=== PATIENT | male | born 1960 | race Caucasian/White ===

== ENCOUNTER 2019-12-04 12:58 | Inpatient (IN) | payer BC, SELFPAY ==
[2019-12-04] VITALS (7 sets, daily range): BP systolic 140–158; BP diastolic 82–101; PULSE 65–103; RESP 9–24; TEMP 36.6–36.8; O2SAT 86–99; BMI 40.7
--- NOTE | 2019-12-04 13:14 | ECG_ITS ---
[facility] Test Date: 2019-12-04 Pat Name: Clayton Rodriguez Department: Room: Gender: Male [employer]: : [id number] Requested By: Aren Doan Order Number: [id number] Zackary MD: Silviano Vee M.D. Measurements Intervals Snyder Rate: 80 P: 67 ME: 142 QRS: 17 QRSD: 85 T: 68 QT: 353 QTc: 409 Interpretive Statements SINUS RHYTHM No previous ECG available for comparison Electronically Signed On 12-04-2019 16:54:48 CDT by Silviano Vee M.D. [email or web address]
--- NOTE | 2019-12-04 13:14 | XRR_ITS ---
PROCEDURE INFORMATION: Exam: XR Chest, 1 View Exam date and time: 12/04/2019 1:33 PM Age: 59 years old Clinical indication: Cough and shortness of breath; Patient HX: C/O short of breath, feels like a cold. Chest congestion, rhinorrhea; Additional info: Dyspnea/cough TECHNIQUE: Imaging protocol: XR of the chest Views: 1 view. COMPARISON: No relevant prior studies available. FINDINGS: Lungs: Unremarkable. No consolidation. Pleural space: Unremarkable. No pleural effusion. No pneumothorax. Heart/Mediastinum: Unremarkable. No cardiomegaly. Bones/joints: Unremarkable. XR/XR chest 1V portable [id number] IMPRESSION: No acute findings.
--- NOTE | 2019-12-04 13:42 | W.ED.SOB ---
HPI - SOB/Dyspnea General: Chief Complaint: Shortness of Breath/Dyspnea Stated Complaint: sob Time Seen by Provider: 12/04/19 13:29 History of Present Illness: HPI Narrative: 59-year-old male presents complaining of shortness of breath states he feels like picked up a cold has had chest congestion cough minimal production and rhinorrhea he is not had any and insomnia. He denies any fever no chest pain he is not been around anyone who is been tested or known to have COVID. He denies vomiting or diarrhea. He does still smoke a pack a day and has for 40 years he has nebulizer at home but is not been using it. He is not regularly on any inhaled medications. MD elicited complaint: shortness of breath and cough Pertinent past history: COPD Onset (ago): day(s) Context: recent illness Timing: constant Severity: moderate Exacerbating factors: exertion and coughing Relieving factors: nothing and rest Known history of: COPD Associated symptoms: Reports no associated symptoms; Deny abdominal pain, chest pain, fever(s), nausea, orthopnea or vomiting Treatment prior to arrival: none Review of Systems Const: Denies: fever(s), chills, body aches, change in appetite, fatigue or malaise ENMT: Denies: throat pain, ear or mastoid pain, nasal discharge or nasal congestion Card: Denies: chest pain, edema, dyspnea on exertion or orthopnea Resp: Denies: dyspnea, productive cough or non-productive cough GI: Denies: abdominal pain, nausea, vomiting, hematemesis, coffee ground emesis, diarrhea, constipation, bloating, hematochezia or melena : Denies: flank pain, dysuria, urinary frequency or urinary urgency Skin/Breast: Denies: rash or pruritus REPLACED BY [facility] PFSH: Medical History (Updated 12/06/19 @ 13:25 by Kamari Kong MD) Acute exacerbation of chronic obstructive airways disease Nephrolithiasis Type 2 diabetes mellitus Social History Smoking and tobacco status: current every day smoker cigarettes Packs smoked per day: 1 Years cigarettes smoked: 40 Physical Exam Const: COMMON NORMALS: no acute distress GENERAL APPEARANCE: cooperative and comfortable ORIENTATION/CONSCIOUSNESS: Yes awake, Yes oriented to person, Yes oriented to place and Yes oriented to time HENMT: COMMON NORMALS: normocephalic and atraumatic HEAD & SCALP: normocephalic and atraumatic Eye: COMMON NORMALS: Equal, round and reactive pupils present, EOMs intact bilaterally, conjunctivae normal and no scleral icterus CONJUNCTIVA: Yes conjunctivae normal PUPIL: Yes Equal, round and reactive pupils present Neck/C-Spine: COMMON NORMALS: full ROM, no lymphadenopathy, supple and no JVD Lymph: LYMPHATIC: no lymphadenopathy noted and no lymphedema noted Resp: AUSCULTATION: wheezes, diminished lung sounds and bronchial breath sounds Cardio: COMMON NORMALS: no JVD, regular rate, regular rhythm and No murmurs present (Cardio) RATE: regular rate RHYTHM: regular rhythm GI: COMMON NORMALS: Soft to palpation and No hepatosplenomegaly present AUSCULTATION: Yes normoactive bowel sounds PALPATION: Yes Soft to palpation, No Tenderness to palpation present (GI), No Guarding due to palpation present (GI) and Yes No hepatosplenomegaly present Extremity: COMMON NORMALS: normal to inspection, capillary refill normal, no clubbing, cyanosis or edema, no calf tenderness and no pedal edema Neuro: SENSORIUM/ORIENTATION: Yes oriented to person, Yes oriented to place and Yes oriented to time Skin: COMMON NORMALS: no rashes or lesions noted GENERAL SKIN EXAM: no rashes or lesions noted Course Vital Signs: Vital signs: Vital Signs Temperature 97.5 F L 12/07/19 07:19 Pulse Rate 76 12/07/19 07:19 Respiratory Rate 18 12/07/19 07:19 Blood Pressure 152/68 12/07/19 07:19 Pulse Oximetry 95 12/07/19 07:19 MDM - SOB/Dyspnea MDM Narrative: Medical decision making narrative: Patient has acute exacerbation COPD. Additionally we are concerned about potential COVID exposure. We will go ahead admitted here for aggressive pulmonary toilet he is considered percent on investigation at this time so will remain in isolation Lab Data: Labs: Lab Results 12/04/19 12/04/19 12/04/19 Range/Units 13:35 14:16 14:16 WBC Cancelled Corrected WBC Cancelled RBC Cancelled Hgb Cancelled Hct Cancelled MCV Cancelled MCH Cancelled MCHC Cancelled RDW Cancelled Plt Count Cancelled MPV Cancelled Gran % Cancelled Neut % (Auto) Cancelled Lymph % (Auto) Cancelled Gentry % (Auto) Cancelled Eos % (Auto) Cancelled Baso % (Auto) Cancelled Neut # (Auto) Cancelled Lymph # (Auto) Cancelled Gentry # (Auto) Cancelled Eos # (Auto) Cancelled Baso # (Auto) Cancelled Absolute Gran (aut o) Cancelled Nucleated RBC % (a uto) Cancelled Nucleated RBCs # Cancelled Fibrinogen (174-498) mg/dL D-Dimer (0-0.59) ug/mIFE U Specimen Type Arterial Sample Site Radial, right ABG pH 7.35 (7.35-7.45) ABG pCO2 54.4 H (35-45) mmHg ABG pO2 95.3 (80.0-100.0) mmH g ABG HCO3 29.9 H (22-26) mmol/L ABG O2 Saturation 96.9 ABG Base Excess 2.5 H (-2.0-2.0) mmol/ L Trung Test Pos A-a O2 Gradient Not Reportable Hematocrit 56.6 H (42-52) % Hgb O2 Saturation 93.7 L (95-100) % Carboxyhemoglobin 2.8 (0.4-20.1) %THgb Methemoglobin 0.6 (0.4-1.5) % Total Hemoglobin 18.5 H (14-18) g/dL Sodium 142.0 138 (131-143) mmol/L Potassium 4.5 4.9 (3.5-5.0) mmol/L Glucose 118.0 H 120 H (70-115) mg/dL Ionized Calcium 1.2 (1.1-1.4) mmol/L O2 Delivery Device Nc O2 Liters/Min 3.0 % FiO2 32.0 % Charge Entry Clerk ID Jlg Chloride 102 (98-107) mmol/L Carbon Dioxide 28 (22-29) mmol/L Anion Gap 12.9 (5-19) BUN 15 (8-23) mg/dL Creatinine 0.9 (0.7-1.2) mg/dL GFR Calculation 85.8 L (90-130) mL/min POC Glucose (70-110) mg/dL Estimat Average Gl ucose Hemoglobin A1c (4.0-6.0) % Calculated Osmolal ity 283 L (285-295) mOsm/k g Lactic Acid (0.5-2.2) mmol/L Calcium 9.4 (8.5-10.5) mg/dL Magnesium (1.7-2.3) mg/dL Iron (59-158) ug/dL TIBC mcg/dl % Saturation (20-50) % Unsat Iron Binding (112-347) ug/dL Ferritin (30-400) ng/mL Total Bilirubin 0.4 (0.15-1.2) mg/dL AST 26 (0-40) U/L ALT 26 (0-41) U/L Alkaline Phosphata se 60 (40-130) IU/L Lactate Dehydrogen ase (135-225) U/L Creatine Kinase (39-308) U/L Troponin T Baselin e (0-15) ng/L Troponin T 120 Min [place] (0-15) ng/L Delta Troponin T (0-10) ABS# Troponin T Hi Sens 6Hr (0-15) ng/L Troponin T Hi Sens 6Hr Delta (0-12) ng/L C-Reactive Protein (0.0-4.9) mg/L NT-Pro-B Natriuret Pep (0-125) pg/mL Total Protein 7.1 (6.6-8.7) g/dL Albumin 4.6 (3.5-5.2) g/dL Globulin 2.5 (1.3-4.6) g/dL Triglycerides (0-150) mg/dL Cholesterol (0-200) mg/dL LDL Cholesterol, C alc (50-129) mg/dL Total VLDL Cholest stef (0-30) mg/dL HDL Cholesterol (60-100) mg/dL Cholesterol/HDL Ra en (1.0-5.00) mg/dL Procalcitonin (0-0.5) ng/mL TSH (0.27-4.20) uIU/ mL Nasal/Oral COVID-1 9 PCR SARS-CoV-2 RNA (RT -PCR) (NOT DETECTED) SARS-CoV-2 Ag (Rap id) (Negative) 12/04/19 12/04/19 12/04/19 Range/Units 14:16 14:16 14:16 WBC Corrected WBC RBC Hgb Hct MCV MCH MCHC RDW Plt Count MPV Gran % Neut % (Auto) Lymph % (Auto) Gentry % (Auto) Eos % (Auto) Baso % (Auto) Neut # (Auto) Lymph # (Auto) Gentry # (Auto) Eos # (Auto) Baso # (Auto) Absolute Gran (aut o) Nucleated RBC % (a uto) Nucleated RBCs # Fibrinogen 501 H (174-498) mg/dL D-Dimer 0.39 (0-0.59) ug/mIFE U Specimen Type Sample Site ABG pH (7.35-7.45) ABG pCO2 (35-45) mmHg ABG pO2 (80.0-100.0) mmH g ABG HCO3 (22-26) mmol/L ABG O2 Saturation ABG Base Excess (-2.0-2.0) mmol/ L Trung Test A-a O2 Gradient Hematocrit (42-52) % Hgb O2 Saturation (95-100) % Carboxyhemoglobin (0.4-20.1) %THgb Methemoglobin (0.4-1.5) % Total Hemoglobin (14-18) g/dL Sodium (131-143) mmol/L Potassium (3.5-5.0) mmol/L Glucose (70-115) mg/dL Ionized Calcium (1.1-1.4) mmol/L O2 Delivery Device O2 Liters/Min % FiO2 % Charge Entry Clerk ID Chloride (98-107) mmol/L Carbon Dioxide (22-29) mmol/L Anion Gap (5-19) BUN (8-23) mg/dL Creatinine (0.7-1.2) mg/dL GFR Calculation (90-130) mL/min POC Glucose (70-110) mg/dL Estimat Average Gl ucose Hemoglobin A1c (4.0-6.0) % Calculated Osmolal ity (285-295) mOsm/k g Lactic Acid 1.1 (0.5-2.2) mmol/L Calcium (8.5-10.5) mg/dL Magnesium (1.7-2.3) mg/dL Iron (59-158) ug/dL TIBC mcg/dl % Saturation (20-50) % Unsat Iron Binding (112-347) ug/dL Ferritin (30-400) ng/mL Total Bilirubin (0.15-1.2) mg/dL AST (0-40) U/L ALT (0-41) U/L Alkaline Phosphata se (40-130) IU/L Lactate Dehydrogen ase (135-225) U/L Creatine Kinase (39-308) U/L Troponin T Baselin e 13 (0-15) ng/L Troponin T 120 Min [place] (0-15) ng/L Delta Troponin T (0-10) ABS# Troponin T Hi Sens 6Hr (0-15) ng/L Troponin T Hi Sens 6Hr Delta (0-12) ng/L C-Reactive Protein (0.0-4.9) mg/L NT-Pro-B Natriuret Pep (0-125) pg/mL Total Protein (6.6-8.7) g/dL Albumin (3.5-5.2) g/dL Globulin (1.3-4.6) g/dL Triglycerides (0-150) mg/dL Cholesterol (0-200) mg/dL LDL Cholesterol, C alc (50-129) mg/dL Total VLDL Cholest stef (0-30) mg/dL HDL Cholesterol (60-100) mg/dL Cholesterol/HDL Ra en (1.0-5.00) mg/dL Procalcitonin (0-0.5) ng/mL TSH (0.27-4.20) uIU/ mL Nasal/Oral COVID-1 9 PCR SARS-CoV-2 RNA (RT -PCR) (NOT DETECTED) SARS-CoV-2 Ag (Rap id) (Negative) 12/04/19 12/04/19 12/04/19 Range/Units 14:16 14:30 15:49 WBC 7.1 Corrected WBC RBC 5.61 H Hgb 17.6 H Hct 54.1 H MCV 96.4 H MCH 31.4 MCHC 32.5 RDW 12.9 Plt Count 181 MPV 10.7 H Gran % Neut % (Auto) 59.5 Lymph % (Auto) 23.6 Gentry % (Auto) 14.5 Eos % (Auto) 1.1 Baso % (Auto) 0.7 Neut # (Auto) 4.21 Lymph # (Auto) 1.7 Gentry # (Auto) 1.0 H Eos # (Auto) 0.1 Baso # (Auto) 0.1 Absolute Gran (aut o) Nucleated RBC % (a uto) 0 Nucleated RBCs # 0.0 Fibrinogen (174-498) mg/dL D-Dimer (0-0.59) ug/mIFE U Specimen Type Sample Site ABG pH (7.35-7.45) ABG pCO2 (35-45) mmHg ABG pO2 (80.0-100.0) mmH g ABG HCO3 (22-26) mmol/L ABG O2 Saturation ABG Base Excess (-2.0-2.0) mmol/ L Trung Test A-a O2 Gradient Hematocrit (42-52) % Hgb O2 Saturation (95-100) % Carboxyhemoglobin (0.4-20.1) %THgb Methemoglobin (0.4-1.5) % Total Hemoglobin (14-18) g/dL Sodium (131-143) mmol/L Potassium (3.5-5.0) mmol/L Glucose (70-115) mg/dL Ionized Calcium (1.1-1.4) mmol/L O2 Delivery Device O2 Liters/Min % FiO2 % Charge Entry Clerk ID Chloride (98-107) mmol/L Carbon Dioxide (22-29) mmol/L Anion Gap (5-19) BUN (8-23) mg/dL Creatinine (0.7-1.2) mg/dL GFR Calculation (90-130) mL/min POC Glucose (70-110) mg/dL Estimat Average Gl ucose Hemoglobin A1c (4.0-6.0) % Calculated Osmolal ity (285-295) mOsm/k g Lactic Acid (0.5-2.2) mmol/L Calcium (8.5-10.5) mg/dL Magnesium (1.7-2.3) mg/dL Iron (59-158) ug/dL TIBC mcg/dl % Saturation (20-50) % Unsat Iron Binding (112-347) ug/dL Ferritin 489 H (30-400) ng/mL Total Bilirubin (0.15-1.2) mg/dL AST (0-40) U/L ALT (0-41) U/L Alkaline Phosphata se (40-130) IU/L Lactate Dehydrogen ase 232 H (135-225) U/L Creatine Kinase (39-308) U/L Troponin T Baselin e (0-15) ng/L Troponin T 120 Min [place] (0-15) ng/L Delta Troponin T (0-10) ABS# Troponin T Hi Sens 6Hr (0-15) ng/L Troponin T Hi Sens 6Hr Delta (0-12) ng/L C-Reactive Protein 9.4 H (0.0-4.9) mg/L NT-Pro-B Natriuret Pep (0-125) pg/mL Total Protein (6.6-8.7) g/dL Albumin (3.5-5.2) g/dL Globulin (1.3-4.6) g/dL Triglycerides (0-150) mg/dL Cholesterol (0-200) mg/dL LDL Cholesterol, C alc (50-129) mg/dL Total VLDL Cholest stef (0-30) mg/dL HDL Cholesterol (60-100) mg/dL Cholesterol/HDL Ra en (1.0-5.00) mg/dL Procalcitonin (0-0.5) ng/mL TSH (0.27-4.20) uIU/ mL Nasal/Oral COVID-1 9 PCR SARS-CoV-2 RNA (RT -PCR) Not detected (NOT DETECTED) SARS-CoV-2 Ag (Rap id) (Negative) 12/04/19 12/04/19 12/04/19 Range/Units 16:26 16:26 16:26 WBC Corrected WBC RBC Hgb Hct MCV MCH MCHC RDW Plt Count MPV Gran % Neut % (Auto) Lymph % (Auto) Gentry % (Auto) Eos % (Auto) Baso % (Auto) Neut # (Auto) Lymph # (Auto) Gentry # (Auto) Eos # (Auto) Baso # (Auto) Absolute Gran (aut o) Nucleated RBC % (a uto) Nucleated RBCs # Fibrinogen (174-498) mg/dL D-Dimer (0-0.59) ug/mIFE U Specimen Type Sample Site ABG pH (7.35-7.45) ABG pCO2 (35-45) mmHg ABG pO2 (80.0-100.0) mmH g ABG HCO3 (22-26) mmol/L ABG O2 Saturation ABG Base Excess (-2.0-2.0) mmol/ L Trung Test A-a O2 Gradient Hematocrit (42-52) % Hgb O2 Saturation (95-100) % Carboxyhemoglobin (0.4-20.1) %THgb Methemoglobin (0.4-1.5) % Total Hemoglobin (14-18) g/dL Sodium (131-143) mmol/L Potassium (3.5-5.0) mmol/L Glucose (70-115) mg/dL Ionized Calcium (1.1-1.4) mmol/L O2 Delivery Device O2 Liters/Min % FiO2 % Charge Entry Clerk ID Chloride (98-107) mmol/L Carbon Dioxide (22-29) mmol/L Anion Gap (5-19) BUN (8-23) mg/dL Creatinine (0.7-1.2) mg/dL GFR Calculation (90-130) mL/min POC Glucose (70-110) mg/dL Estimat Average Gl ucose Hemoglobin A1c (4.0-6.0) % Calculated Osmolal ity (285-295) mOsm/k g Lactic Acid (0.5-2.2) mmol/L Calcium (8.5-10.5) mg/dL Magnesium (1.7-2.3) mg/dL Iron 50 L (59-158) ug/dL TIBC 283 mcg/dl % Saturation 17.6 L (20-50) % Unsat Iron Binding 233 (112-347) ug/dL Ferritin (30-400) ng/mL Total Bilirubin (0.15-1.2) mg/dL AST (0-40) U/L ALT (0-41) U/L Alkaline Phosphata se (40-130) IU/L Lactate Dehydrogen ase (135-225) U/L Creatine Kinase 238 (39-308) U/L Troponin T Baselin e (0-15) ng/L Troponin T 120 Min [place] 12.03 (0-15) ng/L Delta Troponin T -0.97 L (0-10) ABS# Troponin T Hi Sens 6Hr (0-15) ng/L Troponin T Hi Sens 6Hr Delta (0-12) ng/L C-Reactive Protein (0.0-4.9) mg/L NT-Pro-B Natriuret Pep 72 (0-125) pg/mL Total Protein (6.6-8.7) g/dL Albumin (3.5-5.2) g/dL Globulin (1.3-4.6) g/dL Triglycerides (0-150) mg/dL Cholesterol (0-200) mg/dL LDL Cholesterol, C alc (50-129) mg/dL Total VLDL Cholest stef (0-30) mg/dL HDL Cholesterol (60-100) mg/dL Cholesterol/HDL Ra en (1.0-5.00) mg/dL Procalcitonin 0.08 (0-0.5) ng/mL TSH 1.49 (0.27-4.20) uIU/ mL Nasal/Oral COVID-1 9 PCR SARS-CoV-2 RNA (RT -PCR) (NOT DETECTED) SARS-CoV-2 Ag (Rap id) (Negative) 12/04/19 12/04/19 12/04/19 Range/Units 16:35 18:25 19:55 WBC Corrected WBC RBC Hgb Hct MCV MCH MCHC RDW Plt Count MPV Gran % Neut % (Auto) Lymph % (Auto) Gentry % (Auto) Eos % (Auto) Baso % (Auto) Neut # (Auto) Lymph # (Auto) Gentry # (Auto) Eos # (Auto) Baso # (Auto) Absolute Gran (aut o) Nucleated RBC % (a uto) Nucleated RBCs # Fibrinogen (174-498) mg/dL D-Dimer (0-0.59) ug/mIFE U Specimen Type Sample Site ABG pH (7.35-7.45) ABG pCO2 (35-45) mmHg ABG pO2 (80.0-100.0) mmH g ABG HCO3 (22-26) mmol/L ABG O2 Saturation ABG Base Excess (-2.0-2.0) mmol/ L Trung Test A-a O2 Gradient Hematocrit (42-52) % Hgb O2 Saturation (95-100) % Carboxyhemoglobin (0.4-20.1) %THgb Methemoglobin (0.4-1.5) % Total Hemoglobin (14-18) g/dL Sodium (131-143) mmol/L Potassium (3.5-5.0) mmol/L Glucose (70-115) mg/dL Ionized Calcium (1.1-1.4) mmol/L O2 Delivery Device O2 Liters/Min % FiO2 % Charge Entry Clerk ID Chloride (98-107) mmol/L Carbon Dioxide (22-29) mmol/L Anion Gap (5-19) BUN (8-23) mg/dL Creatinine (0.7-1.2) mg/dL GFR Calculation (90-130) mL/min POC Glucose 220 (70-110) mg/dL Estimat Average Gl ucose Hemoglobin A1c (4.0-6.0) % Calculated Osmolal ity (285-295) mOsm/k g Lactic Acid (0.5-2.2) mmol/L Calcium (8.5-10.5) mg/dL Magnesium (1.7-2.3) mg/dL Iron (59-158) ug/dL TIBC mcg/dl % Saturation (20-50) % Unsat Iron Binding (112-347) ug/dL Ferritin (30-400) ng/mL Total Bilirubin (0.15-1.2) mg/dL AST (0-40) U/L ALT (0-41) U/L Alkaline Phosphata se (40-130) IU/L Lactate Dehydrogen ase (135-225) U/L Creatine Kinase (39-308) U/L Troponin T Baselin e (0-15) ng/L Troponin T 120 Min [place] (0-15) ng/L Delta Troponin T (0-10) ABS# Troponin T Hi Sens 6Hr (0-15) ng/L Troponin T Hi Sens 6Hr Delta (0-12) ng/L C-Reactive Protein (0.0-4.9) mg/L NT-Pro-B Natriuret Pep (0-125) pg/mL Total Protein (6.6-8.7) g/dL Albumin (3.5-5.2) g/dL Globulin (1.3-4.6) g/dL Triglycerides (0-150) mg/dL Cholesterol (0-200) mg/dL LDL Cholesterol, C alc (50-129) mg/dL Total VLDL Cholest stef (0-30) mg/dL HDL Cholesterol (60-100) mg/dL Cholesterol/HDL Ra en (1.0-5.00) mg/dL Procalcitonin (0-0.5) ng/mL TSH (0.27-4.20) uIU/ mL Nasal/Oral COVID-1 9 PCR See comments SARS-CoV-2 RNA (RT -PCR) (NOT DETECTED) SARS-CoV-2 Ag (Rap id) Negative (Negative) 12/04/19 12/05/19 12/05/19 Range/Units 20:03 04:22 04:22 WBC Corrected WBC RBC Hgb Hct MCV MCH MCHC RDW Plt Count MPV Gran % Neut % (Auto) Lymph % (Auto) Gentry % (Auto) Eos % (Auto) Baso % (Auto) Neut # (Auto) Lymph # (Auto) Gentry # (Auto) Eos # (Auto) Baso # (Auto) Absolute Gran (aut o) Nucleated RBC % (a uto) Nucleated RBCs # Fibrinogen (174-498) mg/dL D-Dimer (0-0.59) ug/mIFE U Specimen Type Sample Site ABG pH (7.35-7.45) ABG pCO2 (35-45) mmHg ABG pO2 (80.0-100.0) mmH g ABG HCO3 (22-26) mmol/L ABG O2 Saturation ABG Base Excess (-2.0-2.0) mmol/ L Trung Test A-a O2 Gradient Hematocrit (42-52) % Hgb O2 Saturation (95-100) % Carboxyhemoglobin (0.4-20.1) %THgb Methemoglobin (0.4-1.5) % Total Hemoglobin (14-18) g/dL Sodium (131-143) mmol/L Potassium (3.5-5.0) mmol/L Glucose (70-115) mg/dL Ionized Calcium (1.1-1.4) mmol/L O2 Delivery Device O2 Liters/Min % FiO2 % Charge Entry Clerk ID Chloride (98-107) mmol/L Carbon Dioxide (22-29) mmol/L Anion Gap (5-19) BUN (8-23) mg/dL Creatinine (0.7-1.2) mg/dL GFR Calculation (90-130) mL/min POC Glucose (70-110) mg/dL Estimat Average Gl ucose 206 Hemoglobin A1c 8.8 H (4.0-6.0) % Calculated Osmolal ity (285-295) mOsm/k g Lactic Acid (0.5-2.2) mmol/L Calcium (8.5-10.5) mg/dL Magnesium 1.9 (1.7-2.3) mg/dL Iron (59-158) ug/dL TIBC mcg/dl % Saturation (20-50) % Unsat Iron Binding (112-347) ug/dL Ferritin (30-400) ng/mL Total Bilirubin (0.15-1.2) mg/dL AST (0-40) U/L ALT (0-41) U/L Alkaline Phosphata se (40-130) IU/L Lactate Dehydrogen ase (135-225) U/L Creatine Kinase (39-308) U/L Troponin T Baselin e (0-15) ng/L Troponin T 120 Min [place] (0-15) ng/L Delta Troponin T (0-10) ABS# Troponin T Hi Sens 6Hr 11.20 (0-15) ng/L Troponin T Hi Sens 6Hr Delta -1.80 L (0-12) ng/L C-Reactive Protein (0.0-4.9) mg/L NT-Pro-B Natriuret Pep (0-125) pg/mL Total Protein (6.6-8.7) g/dL Albumin (3.5-5.2) g/dL Globulin (1.3-4.6) g/dL Triglycerides (0-150) mg/dL Cholesterol (0-200) mg/dL LDL Cholesterol, C alc (50-129) mg/dL Total VLDL Cholest stef (0-30) mg/dL HDL Cholesterol (60-100) mg/dL Cholesterol/HDL Ra en (1.0-5.00) mg/dL Procalcitonin (0-0.5) ng/mL TSH (0.27-4.20) uIU/ mL Nasal/Oral COVID-1 9 PCR SARS-CoV-2 RNA (RT -PCR) (NOT DETECTED) SARS-CoV-2 Ag (Rap id) (Negative) 12/05/19 12/05/19 12/05/19 Range/Units 04:22 04:22 04:22 WBC 6.3 Corrected WBC RBC 5.78 H Hgb 17.6 H Hct 55.3 H MCV 95.7 H MCH 30.4 MCHC 31.8 RDW 12.9 Plt Count 213 MPV 11.3 H Gran % Neut % (Auto) 83.8 Lymph % (Auto) 14.2 Gentry % (Auto) 1.3 Eos % (Auto) 0.0 Baso % (Auto) 0.2 Neut # (Auto) 5.25 Lymph # (Auto) 0.9 [place]entry # (Auto) 0.1 L Eos # (Auto) 0.0 Baso # (Auto) 0.0 Absolute Gran (aut o) Nucleated RBC % (a uto) 0 Nucleated RBCs # 0.0 Fibrinogen (174-498) mg/dL D-Dimer (0-0.59) ug/mIFE U Specimen Type Sample Site ABG pH (7.35-7.45) ABG pCO2 (35-45) mmHg ABG pO2 (80.0-100.0) mmH g ABG HCO3 (22-26) mmol/L ABG O2 Saturation ABG Base Excess (-2.0-2.0) mmol/ L Trung Test A-a O2 Gradient Hematocrit (42-52) % Hgb O2 Saturation (95-100) % Carboxyhemoglobin (0.4-20.1) %THgb Methemoglobin (0.4-1.5) % Total Hemoglobin (14-18) g/dL Sodium 136 (131-143) mmol/L Potassium 5.2 H (3.5-5.0) mmol/L Glucose 207 H (70-115) mg/dL Ionized Calcium (1.1-1.4) mmol/L O2 Delivery Device O2 Liters/Min % FiO2 % Charge Entry Clerk ID Chloride 100 (98-107) mmol/L Carbon Dioxide 28 (22-29) mmol/L Anion Gap 13.2 (5-19) BUN 1 L (8-23) mg/dL Creatinine 0.9 (0.7-1.2) mg/dL GFR Calculation 85.8 L (90-130) mL/min POC Glucose (70-110) mg/dL Estimat Average Gl ucose Hemoglobin A1c (4.0-6.0) % Calculated Osmolal ity 284 L (285-295) mOsm/k g Lactic Acid (0.5-2.2) mmol/L Calcium 8.9 (8.5-10.5) mg/dL Magnesium (1.7-2.3) mg/dL Iron (59-158) ug/dL TIBC mcg/dl % Saturation (20-50) % Unsat Iron Binding (112-347) ug/dL Ferritin 501 H (30-400) ng/mL Total Bilirubin 0.3 (0.15-1.2) mg/dL AST 18 (0-40) U/L ALT 24 (0-41) U/L Alkaline Phosphata se 55 (40-130) IU/L Lactate Dehydrogen ase 185 (135-225) U/L Creatine Kinase 208 (39-308) U/L Troponin T Baselin e (0-15) ng/L Troponin T 120 Min [place] (0-15) ng/L Delta Troponin T (0-10) ABS# Troponin T Hi Sens 6Hr (0-15) ng/L Troponin T Hi Sens 6Hr Delta (0-12) ng/L C-Reactive Protein 7.2 H (0.0-4.9) mg/L NT-Pro-B Natriuret Pep (0-125) pg/mL Total Protein 7.2 (6.6-8.7) g/dL Albumin 4.1 (3.5-5.2) g/dL Globulin 3.1 (1.3-4.6) g/dL Triglycerides 106 (0-150) mg/dL Cholesterol 169 (0-200) mg/dL LDL Cholesterol, C alc 116 (50-129) mg/dL Total VLDL Cholest stef 21 (0-30) mg/dL HDL Cholesterol 32 L (60-100) mg/dL Cholesterol/HDL Ra en 5.28 H (1.0-5.00) mg/dL Procalcitonin (0-0.5) ng/mL TSH (0.27-4.20) uIU/ mL Nasal/Oral COVID-1 9 PCR SARS-CoV-2 RNA (RT -PCR) (NOT DETECTED) SARS-CoV-2 Ag (Rap id) (Negative) 12/05/19 12/05/19 12/05/19 Range/Units 04:22 06:24 10:29 WBC Corrected WBC RBC Hgb Hct MCV MCH MCHC RDW Plt Count MPV Gran % Neut % (Auto) Lymph % (Auto) [place] % (Auto) Eos % (Auto) Baso % (Auto) Neut # (Auto) Lymph # (Auto) [place] # (Auto) Eos # (Auto) Baso # (Auto) Absolute Gran (aut o) Nucleated RBC % (a uto) Nucleated RBCs # Fibrinogen 507 H (174-498) mg/dL D-Dimer 0.36 (0-0.59) ug/mIFE U Specimen Type Sample Site ABG pH (7.35-7.45) ABG pCO2 (35-45) mmHg ABG pO2 (80.0-100.0) mmH g ABG HCO3 (22-26) mmol/L ABG O2 Saturation ABG Base Excess (-2.0-2.0) mmol/ L Trung Test A-a O2 Gradient Hematocrit (42-52) % Hgb O2 Saturation (95-100) % Carboxyhemoglobin (0.4-20.1) %THgb Methemoglobin (0.4-1.5) % Total Hemoglobin (14-18) g/dL Sodium (131-143) mmol/L Potassium (3.5-5.0) mmol/L Glucose (70-115) mg/dL Ionized Calcium (1.1-1.4) mmol/L O2 Delivery Device O2 Liters/Min % FiO2 % Charge Entry Clerk ID Chloride (98-107) mmol/L Carbon Dioxide (22-29) mmol/L Anion Gap (5-19) BUN (8-23) mg/dL Creatinine (0.7-1.2) mg/dL GFR Calculation (90-130) mL/min POC Glucose 171 228 (70-110) mg/dL Estimat Average Gl ucose Hemoglobin A1c (4.0-6.0) % Calculated Osmolal ity (285-295) mOsm/k g Lactic Acid (0.5-2.2) mmol/L Calcium (8.5-10.5) mg/dL Magnesium (1.7-2.3) mg/dL Iron (59-158) ug/dL TIBC mcg/dl % Saturation (20-50) % Unsat Iron Binding (112-347) ug/dL Ferritin (30-400) ng/mL Total Bilirubin (0.15-1.2) mg/dL AST (0-40) U/L ALT (0-41) U/L Alkaline Phosphata se (40-130) IU/L Lactate Dehydrogen ase (135-225) U/L Creatine Kinase (39-308) U/L Troponin T Baselin e (0-15) ng/L Troponin T 120 Min [place] (0-15) ng/L Delta Troponin T (0-10) ABS# Troponin T Hi Sens 6Hr (0-15) ng/L Troponin T Hi Sens 6Hr Delta (0-12) ng/L C-Reactive Protein (0.0-4.9) mg/L NT-Pro-B Natriuret Pep (0-125) pg/mL Total Protein (6.6-8.7) g/dL Albumin (3.5-5.2) g/dL Globulin (1.3-4.6) g/dL Triglycerides (0-150) mg/dL Cholesterol (0-200) mg/dL LDL Cholesterol, C alc (50-129) mg/dL Total VLDL Cholest stef (0-30) mg/dL HDL Cholesterol (60-100) mg/dL Cholesterol/HDL Ra en (1.0-5.00) mg/dL Procalcitonin (0-0.5) ng/mL TSH (0.27-4.20) uIU/ mL Nasal/Oral COVID-1 9 PCR SARS-CoV-2 RNA (RT -PCR) (NOT DETECTED) SARS-CoV-2 Ag (Rap id) (Negative) 12/05/19 Range/Units 16:30 WBC Corrected WBC RBC Hgb Hct MCV MCH MCHC RDW Plt Count MPV Gran % Neut % (Auto) Lymph % (Auto) [place] % (Auto) Eos % (Auto) Baso % (Auto) Neut # (Auto) Lymph # (Auto) [place] # (Auto) Eos # (Auto) Baso # (Auto) Absolute Gran (aut o) Nucleated RBC % (a uto) Nucleated RBCs # Fibrinogen (174-498) mg/dL D-Dimer (0-0.59) ug/mIFE U Specimen Type Sample Site ABG pH (7.35-7.45) ABG pCO2 (35-45) mmHg ABG pO2 (80.0-100.0) mmH g ABG HCO3 (22-26) mmol/L ABG O2 Saturation ABG Base Excess (-2.0-2.0) mmol/ L Trung Test A-a O2 Gradient Hematocrit (42-52) % Hgb O2 Saturation (95-100) % Carboxyhemoglobin (0.4-20.1) %THgb Methemoglobin (0.4-1.5) % Total Hemoglobin (14-18) g/dL Sodium (131-143) mmol/L Potassium (3.5-5.0) mmol/L Glucose (70-115) mg/dL Ionized Calcium (1.1-1.4) mmol/L O2 Delivery Device O2 Liters/Min % FiO2 % Charge Entry Clerk ID Chloride (98-107) mmol/L Carbon Dioxide (22-29) mmol/L Anion Gap (5-19) BUN (8-23) mg/dL Creatinine (0.7-1.2) mg/dL GFR Calculation (90-130) mL/min POC Glucose 251 (70-110) mg/dL Estimat Average Gl ucose Hemoglobin A1c (4.0-6.0) % Calculated Osmolal ity (285-295) mOsm/k g Lactic Acid (0.5-2.2) mmol/L Calcium (8.5-10.5) mg/dL Magnesium (1.7-2.3) mg/dL Iron (59-158) ug/dL TIBC mcg/dl % Saturation (20-50) % Unsat Iron Binding (112-347) ug/dL Ferritin (30-400) ng/mL Total Bilirubin (0.15-1.2) mg/dL AST (0-40) U/L ALT (0-41) U/L Alkaline Phosphata se (40-130) IU/L Lactate Dehydrogen ase (135-225) U/L Creatine Kinase (39-308) U/L Troponin T Baselin e (0-15) ng/L Troponin T 120 Min [place] (0-15) ng/L Delta Troponin T (0-10) ABS# Troponin T Hi Sens 6Hr (0-15) ng/L Troponin T Hi Sens 6Hr Delta (0-12) ng/L C-Reactive Protein (0.0-4.9) mg/L NT-Pro-B Natriuret Pep (0-125) pg/mL Total Protein (6.6-8.7) g/dL Albumin (3.5-5.2) g/dL Globulin (1.3-4.6) g/dL Triglycerides (0-150) mg/dL Cholesterol (0-200) mg/dL LDL Cholesterol, C alc (50-129) mg/dL Total VLDL Cholest stef (0-30) mg/dL HDL Cholesterol (60-100) mg/dL Cholesterol/HDL Ra en (1.0-5.00) mg/dL Procalcitonin (0-0.5) ng/mL TSH (0.27-4.20) uIU/ mL Nasal/Oral COVID-1 9 PCR SARS-CoV-2 RNA (RT -PCR) (NOT DETECTED) SARS-CoV-2 Ag (Rap id) (Negative) Discharge Plan Discharge Patient Disposition: Home Clinical Impression: Acute exacerbation of chronic obstructive airways disease Condition: Stable Discharge Diet: Usual diet Discharge Activity: Increase activity as tolerated Discharge Date/Time: 12/04/19 19:24 Coding Level of Care Code ED Press Operator [employer] for Srikanth Fwd Exam Comprehensive
[2019-12-04 13:52] LABS: ABG PCO2 54.4 mmHg (35-45); ABG PH Result 7.35 (7.35-7.45); PO2 ABG 95.3 mmHg (80.0-100.0)
[2019-12-04 13:53] LABS: Base Excess ABG 2.5 mmol/L (-2.0-2.0); HCO3 ABG 29.9 mmol/L (22-26); Oxygen Saturation ABG 96.9; Potassium Level - ABG 4.5 mmol/L (3.5-5.0)
[2019-12-04 13:54] LABS: Arterial Blood Gas Hematocrit 56.6 % (42-52); Total Hemoglobin 18.5 g/dL (14-18)
[2019-12-04 13:55] LABS: Carboxyhemoglobin 2.8 %THgb (0.4-20.1); HGB O2 Sat 93.7 % (95-100); Methemoglobin 0.6 % (0.4-1.5)
[2019-12-04 14:46] LABS: Alanine Aminotransferase 26 U/L (0-41); Albumin Level 4.6 g/dL (3.5-5.2); Alkaline Phosphatase 60 IU/L (40-130); Blood Urea Nitrogen 15 mg/dL (8-23); Calcium 9.4 mg/dL (8.5-10.5); Carbon Dioxide 28 mmol/L (22-29); Chloride 102 mmol/L (98-107); Globulin 2.5 g/dL (1.3-4.6); Glomerular Filtration Rate 85.8 mL/min (90-130); Glucose 120 mg/dL (65-115); Osmolality Calculated 283 mOsm/kg (285-295); Sodium 138 mmol/L (136-145); Total Bilirubin 0.4 mg/dL (0.15-1.2); Total Protein 7.1 g/dL (6.6-8.7)
[2019-12-04 14:49] LABS: Troponin(5th) Baseline 13 ng/L (0-15)
[2019-12-04 14:55] LABS: Anion Gap 12.9 (5-19); Aspartate Amino Transferase 26 U/L (0-40); Potassium 4.9 mmol/L (3.5-5.1)
--- NOTE | 2019-12-04 15:14 | ECG_ITS ---
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 Measurements Intervals [place] Rate: 76 P: -12 NV: 143 QRS: 44 QRSD: 95 T: -14 QT: 366 QTc: 413 Interpretive Statements SINUS RHYTHM WITH OCCASIONAL SUPRAVENTRICULAR PREMATURE COMPLEXES Compared to ECG 12/04/2019 13:39:51 No significant changes Electronically Signed On 12-04-2019 17:44:57 CDT by Silviano Vee M.D. [id number]
[2019-12-04 15:54] LABS: Basophils # 0.1 10^3/uL (0.0-0.1); Basophils % 0.7 %; Eosinophils # 0.1 10^3/uL (0.0-0.8); Eosinophils % 1.1 %; Hematocrit 54.1 % (42.0-52.0); Hemoglobin 17.6 g/dL (11.7-16.6); Lymphocytes # 1.7 10^3/uL (0.8-4.8); Lymphocytes % 23.6 %; Mean Corpuscular HGB Conc 32.5 g/dL (30.0-36.0); Mean Corpuscular Hemoglobin 31.4 pg (28.0-34.0); Mean Corpuscular Volume 96.4 fL (80-94); Mean Platelet Volume 10.7 fL (7.4-10.4); Monocytes % 14.5 %; Neutrophils # 4.21 10^3/uL (1.8-7.7); Neutrophils % 59.5 %; Nucleated Red Blood Cells % 0 %; Platelet Count 181 10^3/cmm (130-400); Red Blood Count 5.61 10^6/uL (4.1-5.3); Red Cell Distribution Width 12.9 % (12.1-15.1); White Blood Count 7.1 10^3/uL (4.0-10.0)
[2019-12-04] MEDS: dexamethasone 4 mg/mL INJ 6 MG IVP (16:12)
[2019-12-04 16:26] LABS: Lactic Sepsis W/Reflex 1.1 mmol/L (0.5-2.2)
[2019-12-04 16:29] LABS: C Reactive Protein 9.4 mg/L (0.0-4.9); Ferritin 489 ng/mL (30-400)
[2019-12-04 16:56] LABS: Blood Gas Allen Test Pos; Blood Gas Sample Site Radial, right; Blood Gas Sample Type Arterial; Ionized Calcium Level - ABG 1.2 mmol/L (1.1-1.4)
[2019-12-04 16:58] LABS: SARS Covid-2 Antigen Negative (Negative)
[2019-12-04 16:58] LABS: Troponin 5 2HR 12.03 ng/L (0-15)
[2019-12-04] MEDS: albuterol 8 gm MDI 2 PUFF INHALATION (17:03)
[2019-12-04 17:04] LABS: Troponin 5 2HR Delta -0.97 ABS# (0-10)
[2019-12-04 17:15] LABS: Lactate Dehydrogenase 232 U/L (135-225)
[2019-12-04 17:56] LABS: Creatine Phosphokinase 238 U/L (39-308); Thyroid Stimulating Hormone 1.49 uIU/mL (0.27-4.20)
[2019-12-04 17:57] LABS: NT Pro B Type Natriuretic Pept 72 pg/mL (0-125); Procalcitonin 0.08 ng/mL (0-0.5)
[2019-12-04 18:14] LABS: Iron 50 ug/dL (59-158); Percent Saturation 17.6 % (20-50); Total Iron Binding Capacity 283 mcg/dl; Unsaturated Iron Binding 233 ug/dL (112-347)
--- NOTE | 2019-12-04 18:21 | P.HP_ITS ---
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 Usually is able to walk around without having any difficulty in breathing but for last 3 days he is getting out of breath even walking small distances. He is complaining of cough with whitish colored expectoration without any hemoptysis. He denies of having any fevers. He denies having any headache, loss of sensation of smell or taste, myalgia, diaphoresis, diarrhea, dysuria, headache, dizziness, confusion. He denies of having any exposure to known COVID-19. Lives with his who is feeling okay. Complains of runny nose. Denies of having any PND. Blood work done in the ER shows a hemoglobin of 17.6, white count of 7.1, ABG shows a PCO2 of 54, PO2 of 95.3 on 3 L nasal cannula, sodium 138, potassium 4.9, creatinine of 0.9, ferritin of 49, LDH of 232, rapid COVID negative. Review of Systems General: Reports: 10 or more systems reviewed and unremarkable except in HPI and below Const: Denies: fever(s), chills, body aches, change in appetite, change in weight, malaise, night sweats, diaphoresis, change in sleep pattern, daytime sleepiness or snoring Eyes: Denies: change in vision, blurry vision, photophobia, eye discomfort or eye discharge ENMT: Denies: throat pain, enlarged tonsils, hoarseness, mouth pain, oral sores, dry mouth, tinnitus, nasal congestion or post nasal drip Card: Denies: chest pain, palpitations, irregular heart rhythm, edema, swelling of feet/ankles, lightheadedness, syncope, pre-syncope, dyspnea on exertion, orthopnea, leg pain with exertion or acrocyanosis Resp: Denies: dyspnea, productive cough, non-productive cough, wheezing, stridor, pain on inspiration, change in phlegm color, hemoptysis or chest congestion GI: Denies: abdominal pain, nausea, vomiting, hematemesis, coffee ground emesis, dysphagia, heartburn, diarrhea, constipation, bloating, GI cramping, change in bowel habits, pain on defecation, hematochezia or melena : Denies: flank pain, difficulty urinating, dysuria, urinary frequency, urinary urgency, urinary hesitancy, urinary dribbling, difficulty starting urination, change in urine stream, nocturia or hematuria Musc: Denies: neck pain, back pain, extremity pain, joint pain, joint swelling, joint redness, joint stiffness or limited range of motion Neuro: Denies: headache(s), numbness in extremities, weakness in extremities, sensory changes, lack of coordination, difficulty walking, frequent falls, dizziness, vertigo, confusion, Slurred speech present, difficulty communicating thoughts or seizure-like activity Psych: Denies: anxiety, depression, mood swings, panic attacks, hopelessness or irritability Endo: Denies: polyuria, polydipsia, tired all the time, cold intolerance, excessive sweating, flushing or heat intolerance Nehemiah/Lymph: Denies: easy bruising or easy bleeding All/Imm: Denies: tongue swelling, facial swelling or acute wheezing Medications/Allergies Home Medications Medication Instructions Recorded Confirmed Last Taken Type metformin 1,000 mg PO BID 12/04/19 12/04/19 12/03/19 History Allergies Allergy/AdvReac Type Severity Reaction Status Date / Time No Known Allergies Allergy Verified 12/04/19 17:09 PFSH Acute PFSH: Medical History (Updated 12/04/19 @ 18:27 by Ezio Pop MD) Acute exacerbation of chronic obstructive airways disease Nephrolithiasis Type 2 diabetes mellitus Social History Smoking and tobacco status: current every day smoker cigarettes Packs smoked per day: 1 Years cigarettes smoked: 40 Vitals/I&O/Wt Last Vital Signs Temp 98.3 F 12/04/19 13:11 Pulse 71 12/04/19 18:02 Resp 22 H 12/04/19 18:02 BP 158/98 12/04/19 18:02 Pulse Ox 97 12/04/19 18:02 Weight last 48 hrs Weight 117.934 kg Physical Exam Narrative: EXAM NARRATIVE: General: No acute distress, AO x3, morbidly obese HEENT: PERRLA, pupils bilaterally equal and reactive Chest: Normal vesicular breath sounds, bilateral occasional diffuse rhonchi, equal good air entry bilaterally CVS: S1-S2 regular, no murmurs, no tachycardia, no gallops, no rubs Abdomen: Soft, nontender, no organomegaly, bowel sounds present Neuro: No focal deficits, no facial deformity, AO x3, power 5/5 in all limbs Data : 12/04/19 15:49 12/04/19 14:16 Micro: Microbiology 12/04/19 18:03 Blood Culture - Preliminary Blood SPECIMEN COLLECTED 12/04/19 14:16 Blood Culture - Preliminary Blood SPECIMEN COLLECTED A&P Assessment and plan (1) Acute exacerbation of chronic obstructive airways disease: Status: Acute (2) Type 2 diabetes mellitus: Status: Acute (3) COVID-19 virus test result unknown: Status: Acute Additional A&P Information Shortness of breath: Most likely because of COPD exacerbation. Given his exposure because of travels, rapid progression of the disease cannot rule out COVID-19. Rapid COVID-19 antigen was negative. We will check for COVID-19 to PTC. Check inflammatory markers like LDH, ferritin, CRP, ESR, d-dimer, procalcitonin, sputum culture, blood culture, lactate, CPK, TSH, iron panel. Check CTA PE to rule out pulmonary embolism given rapid progression of the disease. Droplet and contact isolation precautions. Patient given Decadron 6 mg IV in the ER. For now we will start patient on Solu-Medrol 40 mg IV every 12 starting from tomorrow morning. If COVID-19 comes back positive we will switch over to Decadron. Advair, Spiriva. Oxygen supplementation keeping saturation over 90%. Type 2 diabetes mellitus: Insulin sliding scale at moderate dose before meals and at bedtime. Carb consistent diet. Full code. For now Lovenox at prophylactic dose. Attestations Medical Necessity Statement*: Under observation for less than 2 midnights for COPD exacerbation, COVID-19 rule out Time Spent in Patient Care: Greater than 35 minutes (>than 50% of time spent in counselling and/or direct pt care on unit) . Coding Level of Care Code Acute Coater Operator for Srikanth Otero Diagnoses Acute exacerbation of chronic obstructive airways disease J44.1 Type 2 diabetes mellitus E11.9 COVID-19 virus test result unknown Z20.828
--- NOTE | 2019-12-04 18:31 | CTR_ITS ---
PROCEDURE INFORMATION: Exam: CT Angiography Chest With Contrast Exam date and time: 12/04/2019 6:34 PM Age: 59 years old Clinical indication: Shortness of breath; Additional info: Pe R/O TECHNIQUE: Imaging protocol: Computed tomographic angiography of the chest with intravenous contrast. 3D rendering: MIP and/or 3D reconstructed images were created by the technologist. Radiation optimization: All CT scans at this facility use at least one of these dose optimization techniques: automated exposure control; mA and/or kV adjustment per patient size (includes targeted exams where dose is matched to clinical indication); or iterative reconstruction. Contrast material: OMNI 350; Contrast volume: 79 ml; Contrast route: INTRAVENOUS (IV); COMPARISON: CR XR chest 1V portable [id number] 12/04/2019 1:23 PM RADIATION DOSE METRICS: Total DLP (mGy-cm): 685.11 FINDINGS: Pulmonary arteries: No visible pulmonary embolism/pulmonary arterial thrombus. Aorta: The thoracic aorta is nonaneurysmal. Minimal arterial sclerotic disease. Lungs: Centrilobular emphysema. No visible active interstitial or alveolar airspace disease. Solitary calcified granuloma right upper lobe. Pleural space: Unremarkable. No pneumothorax. No pleural effusion. Heart: Unremarkable. No cardiomegaly. No pericardial effusion. Lymph nodes: No visible active mediastinal or hilar lymphadenopathy. Gallbladder and bile ducts: Limited assessment of the upper abdominal contents reveals a solitary gallstone measuring 23 mm. Bones/joints: No visible active or acute osseous pathology. Soft tissues: Unremarkable. Other findings: A total of 1045 images were acquired that will require assessment and interpretation. CT/CT angio chest PE protcl [id number] IMPRESSION: 1. No visible pulmonary embolism/pulmonary arterial thrombus. 2. Centrilobular emphysema. 3. Evidence of antecedent granulomatous disease. 4. Cholelithiasis. Radiation Dose CTDIVOL = (mGy): DLP = 685.11 (mGy-cm)
[2019-12-04 18:43] LABS: Fibrinogen 501 mg/dL (174-498)
[2019-12-04 18:46] LABS: D Dimer 0.39 ug/mIFEU (0-0.59)
[2019-12-04] MEDS: iohexol 350 mg/mL 100 mL Btl IV (19:01)
--- NOTE | 2019-12-04 19:14 | ECG_ITS ---
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 Measurements Intervals [place] Rate: 71 P: 59 OH: 149 QRS: 6 QRSD: 102 T: 66 QT: 373 QTc: 406 Interpretive Statements SINUS RHYTHM Compared to ECG 12/04/2019 15:37:19 No significant changes Electronically Signed On 12-05-2019 21:13:11 CDT by Elsa Styles M.D. [id number]
--- NOTE | 2019-12-04 19:45 | PC.NURSE ---
Patient admitted to room 103 from ER via [place]. Patient is alert and oriented. Patient on covid precautions. Patient has a mask in room. Patient on oxygen and placed on telemetry. vitals obtained. Patient Refused lovenox injection states his blood is thin . Explained to the patient why it was ordered and that he also had SCDs ordered. He agreed to those. Will continue to monitor.
[2019-12-04] MEDS: ascorbic acid 500 mg Tablet PO (20:39)
[2019-12-04] MEDS: thiamine 100 mg Tablet PO (20:39)
[2019-12-04 21:14] LABS: Glucose Point of Care 220 mg/dL (70-110)
[2019-12-05] VITALS (10 sets, daily range): BP systolic 118–152; BP diastolic 58–92; PULSE 68–87; RESP 12–24; TEMP 36.1–37; O2SAT 92–99
[2019-12-05 05:23] LABS: Basophils % 0.2 %; Hematocrit 55.3 % (42.0-52.0); Hemoglobin 17.6 g/dL (11.7-16.6); Lymphocytes # 0.9 10^3/uL (0.8-4.8); Lymphocytes % 14.2 %; Mean Corpuscular HGB Conc 31.8 g/dL (30.0-36.0); Mean Corpuscular Hemoglobin 30.4 pg (28.0-34.0); Mean Corpuscular Volume 95.7 fL (80-94); Mean Platelet Volume 11.3 fL (7.4-10.4); Monocytes # 0.1 10^3/uL (0.2-0.9); Monocytes % 1.3 %; Neutrophils # 5.25 10^3/uL (1.8-7.7); Neutrophils % 83.8 %; Nucleated Red Blood Cells % 0 %; Platelet Count 213 10^3/cmm (130-400); Red Blood Count 5.78 10^6/uL (4.1-5.3); Red Cell Distribution Width 12.9 % (12.1-15.1); White Blood Count 6.3 10^3/uL (4.0-10.0)
[2019-12-05 05:36] LABS: Estmated Average Glucose 206; Hemoglobin A1C 8.8 % (4.0-6.0)
--- NOTE | 2019-12-05 05:54 | PC.NURSE ---
End of Shift: Patient has had a uneventful shift. Patient has had no complaints of pain, remains alert and oriented, and vitals are stable. Will continue to monitor.
[2019-12-05 05:56] LABS: Alanine Aminotransferase 24 U/L (0-41); Albumin Level 4.1 g/dL (3.5-5.2); Alkaline Phosphatase 55 IU/L (40-130); Anion Gap 13.2 (5-19); Aspartate Amino Transferase 18 U/L (0-40); C Reactive Protein 7.2 mg/L (0.0-4.9); Calcium 8.9 mg/dL (8.5-10.5); Carbon Dioxide 28 mmol/L (22-29); Chloride 100 mmol/L (98-107); Creatine Phosphokinase 208 U/L (39-308); Globulin 3.1 g/dL (1.3-4.6); Glomerular Filtration Rate 85.8 mL/min (90-130); Glucose 207 mg/dL (65-115); Potassium 5.2 mmol/L (3.5-5.1); Sodium 136 mmol/L (136-145); Total Bilirubin 0.3 mg/dL (0.15-1.2); Total Protein 7.2 g/dL (6.6-8.7)
[2019-12-05 05:57] LABS: Chol HDL Ratio 5.28 mg/dL (1.0-5.00); Cholesterol 169 mg/dL (0-200); Ferritin 501 ng/mL (30-400); HDL Cholesterol 32 mg/dL (60-100); LDL Cholesterol Calculated 116 mg/dL (50-129); Lactate Dehydrogenase 185 U/L (135-225); Magnesium 1.9 mg/dL (1.7-2.3); Triglycerides 106 mg/dL (0-150); VLDL Cholestrol Calculation 21 mg/dL (0-30)
--- NOTE | 2019-12-05 06:00 | XRR_ITS ---
PROCEDURE INFORMATION: Exam: XR Chest, 1 View Exam date and time: 12/05/2019 5:21 AM Age: 59 years old Clinical indication: Shortness of breath; Additional info: SOB TECHNIQUE: Imaging protocol: XR of the chest Views: 1 view. COMPARISON: CR XR chest 1V portable [id number] 12/04/2019 1:23 PM FINDINGS: Lungs: Unremarkable. No consolidation. Pleural space: Unremarkable. No pleural effusion. No pneumothorax. Heart/Mediastinum: Unremarkable. No cardiomegaly. Bones/joints: Unremarkable. XR/XR chest 1V portable [id number] IMPRESSION: No acute findings. Limited exam as the right costophrenic angle not within the field of view.
[2019-12-05 06:02] LABS: Blood Urea Nitrogen 1 mg/dL (8-23); Osmolality Calculated 284 mOsm/kg (285-295)
[2019-12-05 06:24] LABS: Fibrinogen 507 mg/dL (174-498)
[2019-12-05 06:27] LABS: D Dimer 0.36 ug/mIFEU (0-0.59)
[2019-12-05 06:36] LABS: Glucose Point of Care 171 mg/dL (70-110)
[2019-12-05] MEDS: ascorbic acid 500 mg Tablet PO ×2 (08:29→18:27)
[2019-12-05] MEDS: thiamine 100 mg Tablet PO (08:29)
[2019-12-05 10:45] LABS: Glucose Point of Care 228 mg/dL (70-110)
--- NOTE | 2019-12-05 13:20 | PC.RESP ---
Pt not given one time dose of Advair or Spiriva. RT not notified of this order.
--- NOTE | 2019-12-05 13:50 | P.PN_ITS ---
Subjective Subjective: Interval history: No acute events overnight. Patient continues to remain on oxygen supplementation keeping saturation over 92%. He is anxious. Denies of any nausea, vomiting, headache, palpitations. COVID-19 results elevated. Vitals/I&O/Wt Last Vital Signs Temp 98.6 F 12/05/19 11:25 Pulse 72 12/05/19 11:25 Resp 17 12/05/19 11:25 BP 123/63 12/05/19 11:25 Pulse Ox 97 12/05/19 11:25 12/04/19 12/05/19 12/05/19 22:59 06:59 14:59 Intake Total 360 / 360 360 / 720 240 / 240 Balance 360 / 360 360 / 720 240 / 240 Weight last 48 hrs Weight 119.975 kg Weight 117.934 kg Physical Exam Narrative: EXAM NARRATIVE: General: No acute distress, AO x3, morbidly obese, anxious HEENT: PERRLA, pupils bilaterally equal and reactive Chest: Normal vesicular breath sounds, bilateral occasional diffuse rhonchi, equal good air entry bilaterally CVS: S1-S2 regular, no murmurs, no tachycardia, no gallops, no rubs Abdomen: Soft, nontender, no organomegaly, bowel sounds present Neuro: No focal deficits, no facial deformity, AO x3, power 5/5 in all limbs Data : 12/05/19 04:22 12/05/19 04:22 Micro: Microbiology 12/04/19 18:03 Blood Culture - Preliminary Blood SPECIMEN COLLECTED 12/04/19 14:16 Blood Culture - Preliminary Blood SPECIMEN COLLECTED A&P Assessment and plan (1) Acute exacerbation of chronic obstructive airways disease: Status: Acute (2) Type 2 diabetes mellitus: Status: Acute (3) COVID-19 virus test result unknown: Status: Acute Additional A&P Information Shortness of breath: Most likely because of COPD exacerbation. Given his exposure because of travels, rapid progression of the disease cannot rule out COVID-19. Rapid COVID-19 antigen was negative. Inflammatory markers, CPK, iron panel, TSH results appreciated. CTA PE negative for pulmonary involvement consistent with emphysema. Droplet and contact isolation precautions. Will increase Solu-Medrol to 40 mg every 6 hours. Start patient on azithromycin for anti-inflammatory effect. Advair, Spiriva. Oxygen supplementation keeping saturation over 90%. Sputum culture results awaited. Robitussin and Tessalon Perles for cough as needed. For now no signs of infection with normal leukocytosis, negative procalcitonin, no consolidation on chest x-ray. We will hold off on treatment for community- acquired pneumonia for now. Type 2 diabetes mellitus: Insulin sliding scale at moderate dose before meals and at bedtime. Iron deficiency anemia: Start patient on oral iron supplementation. Carb consistent diet. Full code. For now Lovenox at prophylactic dose. Patient fell we will discussed with his . Plan of care was also discussed she verbalized understanding and agreed. Attestations Medical Necessity Statement*: Shortness of breath, COPD, COVID-19 results awaited Time Spent in Patient Care: Greater than 35 minutes Coding Level of Care Code Acute Internal Control Analyst for Srikanth Otero Diagnoses Acute exacerbation of chronic obstructive airways disease J44.1 Type 2 diabetes mellitus E11.9 COVID-19 virus test result unknown Z20.828
--- NOTE | 2019-12-05 14:23 | PC.NURSE ---
patient has had a tight cough this shift with SOB, patient continues to require O2 to feel less short of breath all though o2 saturations maintain WNL
[2019-12-05 16:46] LABS: Glucose Point of Care 251 mg/dL (70-110)
[2019-12-05] MEDS: ferrous gluconate 324 mg Tablet PO (18:27)
[2019-12-05] MEDS: enoxaparin 40 mg/0.4 mL Syringe SUBCUT (20:17)
[2019-12-05 20:35] LABS: Glucose Point of Care 259 mg/dL (70-110)
[2019-12-05] MEDS: albuterol 8 gm MDI 2 PUFF INHALATION (21:00)
[2019-12-06] VITALS (16 sets, daily range): BP systolic 119–141; BP diastolic 54–93; PULSE 66–103; RESP 14–29; TEMP 36.4–36.9; O2SAT 21–98
[2019-12-06 03:55] LABS: Quest SARS-CoV-2 RNA NOT DETECTED (NOT DETECTED)
[2019-12-06] MEDS: albuterol 8 gm MDI 2 PUFF INHALATION ×4 (04:20→16:55)
--- NOTE | 2019-12-06 04:47 | PC.NURSE ---
Noted patient to have decreased SpO2 at 72%. Assessed patient. Patient is up in the room, to bathroom, sitting at edge of bed c/o increased SOB. Increased O2 to 5 liters. Informed LATONIA Arroyo. Patient up to 90% briefly. Patient O2 increased to 6L. RT at bedside. Changed pulse oximetry probed with new and placed on left hand. New probe showing improved wave form and SpO2 of 95-96%. O2 decreased to 4L and patient continues to maintain 92-96%. Patient SpO2 decreases with any exertion.
--- NOTE | 2019-12-06 05:12 | PC.NURSE ---
Patient requested to have pulse oximetry probe placed on different finger and loosened up stating it is just too tight. Observed patient to have poor wave form and decreased SpO2 levels at 88-92% with the change. Patient remain on 4L NC at this time.
[2019-12-06 06:29] LABS: Glucose Point of Care 253 mg/dL (70-110)
--- NOTE | 2019-12-06 07:00 | USCV_ITS ---
Clayton Rodriguez Age: 59 Gender: M : 1960 Exam Date: 12/06/2019 07:14 Ordering Phys: Ezio Pop MD Technologist: Le Diaz Exam Location: [facility] [place] Indication: PULM HTN AND DD BP: / HR: 69 Rhythm: Sinus Technical Quality: Technically difficult study MEASUREMENTS (Male / Female) Normal Values 2D ECHO LV Diastolic Diameter PLAX 3.5 cm 4.2 - 5.9 / 3.9 - 5.3 cm LV Systolic Diameter PLAX 3.2 cm LV Chamber Size 4.7 cm IVS Diastolic Thickness 1.1 cm 0.6 - 1.0 / 0.6 - 0.9 cm IVS Systolic Thickness 1.3 cm LVPW Diastolic Thickness 1.8 cm 0.6 - 1.0 / 0.6 - 0.9 cm LVPW Systolic Thickness 1.5 cm RV Chamber Size 3.6 cm LVOT Diameter 2.1 cm LV Ejection Fraction 2D Teich 19.3 % LV Ejection Fraction MOD 2C 72.3 % LV Ejection Fraction 2C AL 73.3 % LA Width 2.6 cm LA Height 3.4 cm M-MODE LV Diastolic Diameter MM 7.1 cm 4.2 - 5.9 / 3.9 - 5.3 cm LV Systolic Diameter MM 5.2 cm LV Ejection Fraction MM Teich 50.5 % IVS Diastolic Thickness MM 1.4 cm 0.6 - 1.0 / 0.6 - 0.9 cm IVS Systolic Thickness MM 1.6 cm LVPW Diastolic Thickness MM 1.3 cm 0.6 - 1.0 / 0.6 - 0.9 cm LVPW Systolic Thickness MM 1.6 cm DOPPLER AV Peak Velocity 182.0 cm/s LVOT Peak Velocity 118.0 cm/s AV Area Cont Eq vti 2.8 cm squared AV Area Cont Eq pk 2.2 cm squared MV Area PHT 3.3 cm squared Mitral E to A Ratio 1.1 MV E' Velocity 14.0 cm/s Mitral E to MV E' Ratio 7.7 Mitral E to LV E' Lateral Ratio 6.0 Mitral E to LV E' Septal Ratio 10.9 TR Peak Velocity 142.0 cm/s TR Peak Gradient 8.1 mmHg TV Peak E Velocity 50.0 cm/s Right Atrial Pressure 3.0 mmHg Pulmonary Artery Systolic Pressu 11.1 mmHg PV Peak Velocity 54.0 cm/s RV Acceleration Time 0.1 s RV Ejection Time 0.3 s RV AcT/ET 0.5 FINDINGS Left Ventricle Normal left ventricular cavity size and systolic function. Left ventricular ejection fraction is estimated at 60%. Although no diagnostic regional wall motion abnormality could be identified, this possibility cannot be completely excluded based on this study. Normal diastolic function. Right Ventricle Right ventricle not well visualized. Probably normal right ventricular size and systolic function. Right Atrium Right atrium not well visualized. Left Atrium Normal left atrial size. Mitral Valve Structurally normal mitral valve. Aortic Valve Aortic valve not well visualized. No aortic valve stenosis. Tricuspid Valve Tricuspid valve not well visualized. Pulmonic Valve Pulmonic valve not well visualized. Pericardium No pericardial effusion. Echo free space anterior to the right ventricle likely represents a fat pad. Aorta Aorta not well visualized. CONCLUSIONS 1. This is a technically difficult study. 2. Normal left ventricular cavity size and systolic function. Left ventricular ejection fraction is estimated at 60%. Although no diagnostic regional wall motion abnormality could be identified, this possibility cannot be completely excluded based on this study. Normal diastolic function. 3. No prior similar studies to compare. Carina Stein MD (Electronically Signed) Final Date: 06 December 2019 20:43 S
[2019-12-06] MEDS: ascorbic acid 500 mg Tablet PO ×2 (08:22→17:02)
[2019-12-06] MEDS: azithromycin 250 mg Tablet 500 MG PO (08:22)
[2019-12-06] MEDS: ferrous gluconate 324 mg Tablet PO ×2 (08:22→17:02)
[2019-12-06] MEDS: thiamine 100 mg Tablet PO (08:22)
--- NOTE | 2019-12-06 08:30 | PC.NURSE ---
Patient up to side of bed eating breakfast at time of assessment. Blood collected for morning labs. No further needs identified at this time.
[2019-12-06 08:41] LABS: Basophils % 0.1 %; Hematocrit 56.7 % (42.0-52.0); Hemoglobin 17.9 g/dL (11.7-16.6); Lymphocytes # 0.9 10^3/uL (0.8-4.8); Lymphocytes % 5.3 %; Mean Corpuscular HGB Conc 31.6 g/dL (30.0-36.0); Mean Corpuscular Hemoglobin 30.3 pg (28.0-34.0); Mean Corpuscular Volume 96.1 fL (80-94); Mean Platelet Volume 11.3 fL (7.4-10.4); Monocytes # 0.5 10^3/uL (0.2-0.9); Monocytes % 3.3 %; Neutrophils # 14.65 10^3/uL (1.8-7.7); Neutrophils % 90.9 %; Nucleated Red Blood Cells % 0 %; Platelet Count 218 10^3/cmm (130-400); Red Cell Distribution Width 12.9 % (12.1-15.1); White Blood Count 16.1 10^3/uL (4.0-10.0)
[2019-12-06 08:48] LABS: Fibrinogen 467 mg/dL (174-498)
[2019-12-06 08:50] LABS: D Dimer 0.36 ug/mIFEU (0-0.59)
--- NOTE | 2019-12-06 09:05 | CT_ITS ---
WS: [id number] CT CHEST WITHOUT INTRAVENOUS CONTRAST HISTORY: SOB TECHNIQUE: Contiguous 5 mm axial imaging performed on the thorax. Coronal and sagittal reformats are submitted. All CT scans at [facility] use at least one of these dose optimization techniq ues: automated exposure control; mA and/or kV adjustment per patient size (includes targeted exams wh ere dose is matched to clinical indication); or iterative reconstruction. CONTRAST: None DLP: 1080.51 mGy.cm COMPARISON: 12/04/2019 Lungs and central airway: Chronic emphysema with mild heterogeneity throughout the lungs from areas o f air trapping. Subsegmental linear atelectasis at the LEFT lung base. No pneumonia. Normal vasculatu re. Prior granulomatous disease. Pleura: Normal. No pleural effusion. Heart and pericardium: Normal size heart. No pericardial effusion. Mediastinum and manish: Small benign lymph nodes. Vessels: Normal size aortic and pulmonary artery. No coronary artery calcifications. Chest wall and lower neck: No soft tissue masses. Upper abdomen: Slightly contracted gallbladder with cholelithiasis. No evidence for acute cholecystit is. Osseous structures: No osteoblastic or osteolytic bone disease. CT/CT chest wo con [id number] IMPRESSION: 1. Centrilobular emphysema, moderate. 2. Minimal subsegmental atelectasis at the LEFT lung base. 3. Cholelithiasis without evidence for acute cholecystitis.
--- NOTE | 2019-12-06 09:15 | PC.NURSE ---
Lab notified nursing staff that previous chemistry blood collection hemolyzed. New specimen collected by nurse and delivered to lab.
[2019-12-06 09:45] LABS: Erythrocyte Sedimentation Rate 5 mm/hr (0-10)
--- NOTE | 2019-12-06 09:50 | P.PN_ITS ---
Subjective Subjective: Interval history: No acute events overnight. Patient continues to remain on 4 L nasal cannula to maintain his saturations over 90%. He states he is feeling out of breath on minimal exertion. Denies of having any nausea, vomiting, headache. Denies of any confusion. Continues to have cough. Patient has remained afebrile, hemodynamic stable. COVID-19 PCR came back negative today morning. Vitals/I&O/Wt Last Vital Signs Temp 97.7 F 12/06/19 06:58 Pulse 68 12/06/19 08:35 Resp 22 H 12/06/19 08:35 BP 133/80 12/06/19 06:58 Pulse Ox 90 12/06/19 08:35 12/05/19 12/06/19 12/06/19 22:59 06:59 14:59 Intake Total 600 / 840 150 / 990 240 / 240 Balance 600 / 840 150 / 990 240 / 240 Weight last 48 hrs Weight 120.066 kg Weight 119.975 kg Weight 117.934 kg Physical Exam Narrative: EXAM NARRATIVE: General: No acute distress, AO x3, morbidly obese, anxious HEENT: PERRLA, pupils bilaterally equal and reactive Chest: Normal vesicular breath sounds, bilateral occasional diffuse rhonchi, equal good air entry bilaterally CVS: S1-S2 regular, no murmurs, no tachycardia, no gallops, no rubs Abdomen: Soft, nontender, no organomegaly, bowel sounds present Neuro: No focal deficits, no facial deformity, AO x3, power 5/5 in all limbs Data : 12/06/19 08:17 12/06/19 09:00 Micro: Microbiology 12/05/19 18:30 Gram Stain - Final Sputum - Expectorated Sputum 12/04/19 18:03 Blood Culture - Preliminary Blood NEGATIVE TO DATE 12/04/19 14:16 Blood Culture - Preliminary Blood NEGATIVE TO DATE A&P Assessment and plan (1) Acute exacerbation of chronic obstructive airways disease: Status: Acute (2) Type 2 diabetes mellitus: Status: Acute (3) COVID-19 virus test result unknown: Status: Acute (4) Pneumonitis: Status: Acute Additional A&P Information Shortness of breath: Most likely because of COPD exacerbation versus pneumonitis. He gives history of using an old nebulizer before his symptoms got worse. He cannot rule out mold. Though symptoms have been to acute for a fungal infection. Symptoms are most consistent with COPD exacerbation because of viral bronchitis. But at baseline he does not require oxygen and not requiring up to 4 L so we will have to rule out other infections like cryptococcal, mycoplasma, coccidial. Patient is not immunocompromised. We will check HIV status. COVID-19 has been ruled out. PE has been ruled out with CTA PE and negative D-Dimer. We will consult pulmonology for possible need of bronchial wash. Repeat CT scan chest without contrast to see for progression. Switch to DuoNebs every 4 hours, budesonide twice daily. C/w Solu-Medrol to 40 mg every 6 hours. BiPAP at night for lower respiratory work. Oxygen supplementation keeping saturation over 90%. Sputum culture results awaited. Robitussin and Tessalon Perles for cough as needed. For now no signs of infection with normal leukocytosis, negative procalcitonin, no consolidation on chest x-ray. We will hold off on treatment for community-ac quired pneumonia for now. Type 2 diabetes mellitus: Insulin sliding scale at high dose before meals and at bedtime. Iron deficiency anemia: Start patient on oral iron supplementation. Carb consistent diet. Full code. For now Lovenox at prophylactic dose. Patient care we will discussed with his . Plan of care was also discussed she verbalized understanding and agreed. Attestations Medical Necessity Statement*: Severe SOB, COPD Time Spent in Patient Care: Greater than 35 minutes (>than 50% of time spent in counselling and/or direct pt care on unit) . Coding Level of Care Code Acute Inspector Of Weights And Measures for Srikanth Otero Diagnoses Acute exacerbation of chronic obstructive airways disease J44.1 Type 2 diabetes mellitus E11.9 COVID-19 virus test result unknown Z20.828 Pneumonitis J18.9
[2019-12-06 10:00] LABS: HIV 1 & 2 Antibody Non-Reactive (Non-Reactiv); HIV 1 & 2 Antigen Non-Reactive (Non-Reactiv)
[2019-12-06 10:01] LABS: Procalcitonin 0.06 ng/mL (0-0.5)
[2019-12-06 10:14] LABS: Alanine Aminotransferase 22 U/L (0-41); Albumin Level 3.8 g/dL (3.5-5.2); Alkaline Phosphatase 50 IU/L (40-130); Aspartate Amino Transferase 15 U/L (0-40); Blood Urea Nitrogen 24 mg/dL (8-23); C Reactive Protein 2.1 mg/L (0.0-4.9); Calcium 8.9 mg/dL (8.5-10.5); Carbon Dioxide 28 mmol/L (22-29); Chloride 99 mmol/L (98-107); Ferritin 454 ng/mL (30-400); Glomerular Filtration Rate 68.1 mL/min (90-130); Glucose 290 mg/dL (65-115); Osmolality Calculated 295 mOsm/kg (285-295); Sodium 139 mmol/L (136-145); Total Bilirubin 0.2 mg/dL (0.15-1.2); Total Protein 6.8 g/dL (6.6-8.7)
[2019-12-06 10:21] LABS: Anion Gap 16.4 (5-19); Lactate Dehydrogenase 168 U/L (135-225); Potassium 4.4 mmol/L (3.5-5.1)
[2019-12-06 11:00] LABS: Oxygen Device NC
[2019-12-06 11:02] LABS: Glucose Point of Care 236 mg/dL (70-110)
[2019-12-06 11:50] LABS: ABG PCO2 50.7 mmHg (35-45); ABG PH Result 7.39 (7.35-7.45); Alveolar-Arterial Oxygen Gradi 21.7 mmHg (5-10); Arterial Blood Gas Hematocrit 56.6 % (42-52); Base Excess ABG 4.1 mmol/L (-2.0-2.0); Blood Gas Operator Identificat glc; Blood Gas Sample Site Brachial, right; Blood Gas Sample Type Arterial; Carboxyhemoglobin 0.7 %THgb (0.4-20.1); HCO3 ABG 30.7 mmol/L (22-26); HGB O2 Sat 90.9 % (95-100); Ionized Calcium Level - ABG 1.3 mmol/L (1.1-1.4); Methemoglobin 0.6 % (0.4-1.5); Oxygen Device NC; Oxygen Saturation ABG 92.1; Potassium Level - ABG 4.8 mmol/L (3.5-5.0); Total Hemoglobin 18.5 g/dL (14-18)
--- NOTE | 2019-12-06 12:00 | PC.NURSE ---
Dr. Vee at bedside to discuss plan of care with patient.
--- NOTE | 2019-12-06 12:28 | P.CONIM_ITS ---
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 Usually is able to walk around without having any difficulty in breathing but for last 3 days he is getting out of breath even walking small distances. He is complaining of cough with whitish colored expectoration without any hemoptysis. He denies of having any fevers. He denies having any headache, loss of se nsation of smell or taste, myalgia, diaphoresis, diarrhea, dysuria, headache, dizziness, confusion. He denies of having any exposure to known COVID-19. Lives with his who is feeling okay. Complains of runny nose. Denies of having any PND. COVID RT PCR is negative. Pulmonary consult called to evaluate for shortness of breath with hypoxia. Pt. is on 5L NC and is still short of breath. Denied any other complaints. ABG on 5 L oxygen: 7.39/50 0.7/50 8/30 0.7/92% Patient reported smoking 1 pack/day for about 30 years. Knows that he has COPD but never on any inhalers or had any exacerbations. Says he has KASSIDY and was recommended CPAP but is noncompliant Review of Systems Narrative: general: no fever, chills, weight loss Eyes: no blurry vision, photophobia ENT: no rhinorrhea, sinus pressure CV: no chest pain, palpitations, LE edema Lungs: SOB, cough with whitish sputum GI: no abdominal pain, nausea, vomiting, diarrhea, constipation, melena : no dysuria or hematuria Neuro: no headache, dizziness, lightheadedness MSK: no muscle or joint pain Derm: no rashes Meds/Allergies Home Medications and Allergies Home Medications Medication Instructions Recorded Confirmed Last Taken Type metformin 1,000 mg PO BID 12/04/19 12/04/19 12/03/19 History Allergies Allergy/AdvReac Type Severity Reaction Status Date / Time No Known Allergies Allergy Verified 12/04/19 17:09 Current Medications Current Medications Generic Name Dose Route Start Last Admin Trade Name Denzel PRN Reason Stop Dose Admin Albuterol Sulfate 2 puff 12/05/19 15:22 12/06/19 11:29 Ventolin INHALATION 2 puff Q4H.RESPIRATORY PRN Administration SHORTNESS OF BREATH Ascorbic Acid 500 mg 12/04/19 19:35 12/06/19 08:22 Vitamin C PO 500 mg BID ESE Administration Azithromycin 500 mg 12/06/19 09:00 12/06/19 08:22 Zithromax PO 500 mg DAILY ESE Administration Protocol Enoxaparin Sodium 40 mg 12/04/19 19:35 12/05/19 20:17 Lovenox SUBCUT 40 mg Q24H ESE Administration Ferrous Gluconate 324 mg 12/05/19 18:00 12/06/19 08:22 Ferrous Gluconate PO 324 mg BIDWM ESE Administration Insulin Aspart 0 unit 12/04/19 19:35 12/06/19 11:39 Novolog SUBCUT 8 unit WM&BEDTIME ESE Administration Protocol Methylprednisolone Sodium Succinate 40 mg 12/05/19 14:00 12/06/19 07:53 Solu-Medrol IVP 40 mg Q6H ESE Administration Fluticasone/Salmeterol 1 puff 12/05/19 20:00 12/06/19 08:23 Advair Diskus 500-50 INHALATION 1 inhalation BID.RESPIRATORY ESE Administration Thiamine Mononitrate 100 mg 12/04/19 19:35 12/06/19 08:22 Vitamin B-1 PO 100 mg DAILY ESE Administration Tiotropium Conway 18 mcg 12/05/19 13:50 12/06/19 08:23 Spiriva INHALATION 1 puff DAILY.RESPIRATORY ESE Administration PFSH Acute PFSH: Medical History (Updated 12/06/19 @ 13:25 by Kaamri Kong MD) Acute exacerbation of chronic obstructive airways disease Nephrolithiasis Type 2 diabetes mellitus Social History Smoking and tobacco status: current every day smoker cigarettes Packs smoked per day: 1 Years cigarettes smoked: 40 Vitals/I&O/Wt Last Vital Signs Temp 97.7 F 12/06/19 06:58 Pulse 82 12/06/19 11:53 Resp 22 H 12/06/19 11:53 BP 133/80 12/06/19 06:58 Pulse Ox 95 12/06/19 11:53 12/05/19 12/06/19 12/06/19 22:59 06:59 14:59 Intake Total 600 / 840 150 / 990 240 / 240 Balance 600 / 840 150 / 990 240 / 240 Weight last 48 hrs Weight 264 lb 11.2 oz Weight 264 lb 8 oz Weight 260 lb Physical Exam Narrative: EXAM NARRATIVE: General: alert, in mild respiratory distress, on 5 L nasal cannula, sitting in bed HEENT: conj clear, EOMI, PERRL, mmm, Neck: supple, no meningismus Heme: no cervical LAP Pulmonary: CTAB, bilateral diffuse inspiratory wheezing Cardiovascular: rrr, nl s1s2, no mrg Abdomen: soft, nt, nd, no r/g, bs+ Extremities: pulses +, no edema, no c/c : no CVA tenderness Skin: intact, no rash MSK: no back or neck pain Neurologic: grossly intact Data Micro: Micro: Microbiology 12/05/19 18:30 MRSA Culture - Fin al Nose 12/05/19 18:30 Gram Stain - Final Sputum - Expector ated Sputum 12/04/19 18:03 Blood Culture - Pr eliminary Blood NEGATIVE TO DON E 12/04/19 14:16 Blood Culture - Pr eliminary Blood NEGATIVE TO DON E A&P Assessment and plan (1) Acute exacerbation of chronic obstructive airways disease: Status: Acute (2) Acute on chronic respiratory failure with hypoxia and hypercapnia: Status: Acute (3) Pneumonitis: Status: Acute (4) Type 2 diabetes mellitus: Status: Acute Qualifiers: 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 use: without inventory control planner use Diabetes mellitus complication status: with other specified complication Qualified Code(s): E11.69 - Type 2 diabetes mellitus with other specified complication #Acute on chronic respiratory failure with hypoxia and hypercapnia likely due to COPD exacerbation #Likely chronic CO2 retainer in view of COPD and KASSIDY -Negative CTPA and normal d-dimer essentially rules out PE/DVT -Normal inflammatory markers except elevated ferritin with normal CT chest and twice negative COVID testing ruled out COVID 19 pneumonia -Normal WBC (today 16K could be due to steroids), no fevers, cultures negative so far, negative MRSA, no infiltrates on imaging rule out active pneumonic process (bacterial or fungal). No need for bronchoscopy now. -CT suggestive of emphysema and with inspiratory wheezing on examination with significant history of smoking suggestive of COPD exacerbation -Can DC COVID isolation precautions and start patient on every 4 hr duoneb nebulizations -Continue Solu-Medrol 40 mg every 6 hours scheduled-monitor sugars; - Taper steroids based on clinical response -Azithromycin to cover bronchitis/atypical infection -Baseline CO2 will be slightly higher than 40; can try BiPAP overnight and O2 supplementation to keep Sats > 92%. Get an ABG in a.m. -Sent for flu antigen Legionella, mycoplasma -Echo to to assess LV function and rule out cardiac etiology as cause for shortness of breath #KASSIDY on CPAP-noncompliant Will try BiPAP at night Sleep study as outpatient and possible re-titration Medical condition, labs, investigations, medications, counseling regarding medication compliance, side effects, importance of follow-up appointments, smoking-its adverse effects and importance of cessation and plan of care- everything explained in detail to the patient. Patient verbalized understanding and agreed with the plan of care. Recommendations conveyed to hospitalist Thanks for the consult and follow based on clinical response Consult Attestations Medical Necessity Statement: Shortness of breath with hypoxia Coding Level of Care Code New Pt Acute Surgical Endoscopist for Chg Fwd Patient Type New History Comprehensive Exam Detailed Medical Decision Making High Complexity Diagnoses Acute exacerbation of chronic obstructive airways disease J44.1 Acute on chronic respiratory failure with hypoxia and hypercapnia J96.21; J96.22 Pneumonitis J18.9 Type 2 diabetes mellitus E11.69 Diabetes mellitus [facility] insulin use: without [facility] use Diabetes mellitus complication status: with other specified complication Time Spent (min) 40
--- NOTE | 2019-12-06 12:30 | PC.NURSE ---
Dr. Pop requests that patient o2 be titrated to maintain SPO2 of 90%.
[2019-12-06 14:14] LABS: Coronavirus Lab Test PTC SEE COMMENTS
[2019-12-06] MEDS: ipratropium-albuterol 3 mL Neb INHALATION ×2 (16:24→20:18)
[2019-12-06 16:51] LABS: Glucose Point of Care 330 mg/dL (70-110)
--- NOTE | 2019-12-06 17:00 | PC.NURSE ---
Dr. Pop notified that patient blood glucose continues to rise even with insulin coverage. Physician gave verbal order to increase sliding scale to high regimen.
[2019-12-06] MEDS: fluticasone nasal spray 16gm Btl 1 SPRAY NASAL (17:03)
--- NOTE | 2019-12-06 18:30 | NUR.SHIFT ---
Patient states that he feels like his oxygen is not getting through his nose, states that he feels he is too congested. Patient also mentions he is naturally a mouth breather. Patient placed on 3L via oxymask. O2 sat 94% while resting. Nurse to continue to monitor.
--- NOTE | 2019-12-06 18:36 | PC.RESP ---
SMOKING CESSATION AND PULMONARY REHAB INFORMATION SENT TO PATIENT.
[2019-12-06] MEDS: budesonide 0.5 mg/2 mL Neb INHALATION (20:18)
[2019-12-06] MEDS: enoxaparin 40 mg/0.4 mL Syringe SUBCUT (20:24)
[2019-12-06 20:25] LABS: Glucose Point of Care 289 mg/dL (70-110)
[2019-12-07] VITALS (17 sets, daily range): BP systolic 120–152; BP diastolic 62–74; PULSE 74–97; RESP 15–20; TEMP 36.4–36.6; O2SAT 93–96
[2019-12-07] MEDS: ipratropium-albuterol 3 mL Neb INHALATION ×6 (00:15→23:28)
--- NOTE | 2019-12-07 00:57 | PC.NURSE ---
Patient refusing to use bipap per Yovany, DEMAND MANAGER
[2019-12-07] MEDS: morphine 4 mg/mL SDV 1 mL 2 MG IVP (01:59)
[2019-12-07 05:47] LABS: Basophils % 0.1 %; Eosinophils % 0.1 %; Hematocrit 51.7 % (42.0-52.0); Hemoglobin 16.1 g/dL (11.7-16.6); Lymphocytes # 0.7 10^3/uL (0.8-4.8); Lymphocytes % 4.2 %; Mean Corpuscular HGB Conc 31.1 g/dL (30.0-36.0); Mean Corpuscular Hemoglobin 30.4 pg (28.0-34.0); Mean Corpuscular Volume 97.5 fL (80-94); Mean Platelet Volume 11.3 fL (7.4-10.4); Monocytes # 0.5 10^3/uL (0.2-0.9); Monocytes % 3.4 %; Neutrophils # 14.72 10^3/uL (1.8-7.7); Neutrophils % 91.8 %; Nucleated Red Blood Cells % 0 %; Platelet Count 213 10^3/cmm (130-400); Red Cell Distribution Width 13.1 % (12.1-15.1)
[2019-12-07 06:06] LABS: Alanine Aminotransferase 18 U/L (0-41); Albumin Level 3.7 g/dL (3.5-5.2); Alkaline Phosphatase 46 IU/L (40-130); Anion Gap 15.6 (5-19); Aspartate Amino Transferase 15 U/L (0-40); Blood Urea Nitrogen 27 mg/dL (8-23); Calcium 9.3 mg/dL (8.5-10.5); Carbon Dioxide 26 mmol/L (22-29); Chloride 99 mmol/L (98-107); Globulin 2.4 g/dL (1.3-4.6); Glucose 307 mg/dL (65-115); Osmolality Calculated 291 mOsm/kg (285-295); Potassium 4.6 mmol/L (3.5-5.1); Sodium 136 mmol/L (136-145); Total Bilirubin 0.2 mg/dL (0.15-1.2); Total Protein 6.1 g/dL (6.6-8.7)
[2019-12-07 06:44] LABS: Glucose Point of Care 327 mg/dL (70-110)
[2019-12-07] MEDS: thiamine 100 mg Tablet PO (07:53)
[2019-12-07] MEDS: ascorbic acid 500 mg Tablet PO ×2 (07:53→17:01)
[2019-12-07] MEDS: fluticasone nasal spray 16gm Btl 1 SPRAY NASAL ×2 (07:54→17:02)
[2019-12-07] MEDS: ferrous gluconate 324 mg Tablet PO ×2 (07:54→17:02)
[2019-12-07] MEDS: azithromycin 250 mg Tablet 500 MG PO (07:54)
--- NOTE | 2019-12-07 10:34 | PM.PN ---
Subjective Subjective: Interval history: No acute events overnight. Patient states he was feeling very well today morning when he woke up but often taking.he is feeling worn out. On examination lying in bed. He is on 3 L nasal cannula during examination saturating 95%. During examination he was weaned down to 2 L and maintain his saturation of 94%. He denies having nausea, vomiting, headache, palpitation. Vitals/I&O/Wt Last Vital Signs Temp 97.5 F L 12/07/19 07:19 Pulse 79 12/07/19 08:28 Resp 18 12/07/19 08:25 BP 152/68 12/07/19 07:19 Pulse Ox 95 12/07/19 08:25 12/06/19 12/07/19 12/07/19 22:59 06:59 14:59 Intake Total 240 / 600 900 / 1500 Balance 240 / 600 900 / 1500 Weight last 48 hrs Weight 119.522 kg Weight 120.066 kg Physical Exam Narrative: EXAM NARRATIVE: General: No acute distress, AO x3, morbidly obese, anxious HEENT: PERRLA, pupils bilaterally equal and reactive Chest: Normal vesicular breath sounds, bilateral occasional diffuse rhonchi, equal good air entry bilaterally CVS: S1-S2 regular, no murmurs, no tachycardia, no gallops, no rubs Abdomen: Soft, nontender, no organomegaly, bowel sounds present Neuro: No focal deficits, no facial deformity, AO x3, power 5/5 in all limbs Data : 12/07/19 05:24 12/07/19 05:24 Micro: Microbiology 12/05/19 18:30 Gram Stain - Final Sputum - Expectorated Sputum Sputum Culture - Preliminary 12/05/19 18:30 MRSA Culture - Final Nose A&P Assessment and plan (1) Acute exacerbation of chronic obstructive airways disease: Status: Acute (2) Type 2 diabetes mellitus: Status: Acute Qualifiers: Diabetes mellitus complication status: with other specified complication Diabetes mellitus senior care insulin use: without senior care use Qualified Code(s): E11.69 - Type 2 diabetes mellitus with other specified complication (3) Pneumonitis: Status: Acute (4) Hypertension: Status: Acute (5) COVID-19 ruled out: Status: Acute Additional A&P Information Shortness of breath: Most likely because of COPD exacerbation versus pneumonitis. He gives history of using an old nebulizer before his symptoms got worse. He cannot rule out mold. Though symptoms have been to acute for a fungal infection. Symptoms are most consistent with COPD exacerbation because of viral bronchitis. But at baseline he does not require oxygen and not requiring up to 4 L so we will have to rule out other infections like cryptococcal, mycoplasma, coccidial. Patient is not immunocompromised. We will check HIV status. COVID-19 has been ruled out. PE has been ruled out with CTA PE and negative D-Dimer. Echocardiogram does not show any systolic or diastolic dysfunction or regional wall motion abnormality. Case discussed with pulmonology. Recommendations appreciated. For now we will hold off on any bronchoscopy. If patient develops fever or worsens we will plan then as per pulmonology recommendations. Continue with DuoNeb's every 4 hours, budesonide twice daily. For now continue with Solu-Medrol 40 mg every 6 hours today. We will plan to wean tomorrow. BiPAP overnight. Oxygen supplementation keeping saturation over 90%. For now patient does not have any signs of infection. Patient has remained afebrile. Leukocytosis most likely secondary to steroid use. We will continue to hold off on antibiotics for committee acquired pneumonia. Only continue with azithromycin which will cover for atypicals. Urine bacterial antigen for mycoplasma to be sent. Results still awaited. Sputum culture results awaited. Robitussin and Tesjessicaon Perles for cough as needed. Type 2 diabetes mellitus: Insulin sliding scale at high dose before meals and at bedtime. Start patient on Lantus 20 units every morning. Sugars elevated most likely secondary to steroid use. Hypertension: Not a known hypertensive. Goal blood pressure less than 140/90 mmHg. Start patient on lisinopril 10 mg daily. Iron deficiency anemia: Start patient on oral iron supplementation. Carb consistent diet. Full code. For now Lovenox at prophylactic dose. Patient care we will discussed with his . Plan of care was also discussed she verbalized understanding and agreed. Attestations Medical Necessity Statement*: Shortness of breath, most likely COPD exacerbation Time Spent in Patient Care: Greater than 35 minutes (>than 50% of time spent in counselling and/or direct pt care on unit). Coding Level of Care Code Acute Custom Motorcycle Painter for Srikanth Otero Diagnoses Acute exacerbation of chronic obstructive airways disease J44.1 Type 2 diabetes mellitus E11.69 Diabetes mellitus complication status: with other specified complication Diabetes mellitus senior care insulin use: without senior care use Pneumonitis J18.9 Hypertension I10 COVID-19 ruled out Z03.818
[2019-12-07 11:09] LABS: Glucose Point of Care 219 mg/dL (70-110)
[2019-12-07] MEDS: lisinopril 10 mg Tablet PO (11:45)
[2019-12-07] MEDS: insulin glargine 100 units/1 mL 20 UNIT SUBCUT (11:45)
--- NOTE | 2019-12-07 14:44 | PC.RESP ---
This therapist busy with critical care in emercency room.
[2019-12-07 15:57] LABS: Glucose Point of Care 266 mg/dL (70-110)
[2019-12-07] MEDS: saline nasal spray 44mL Btl 1 SPRAY NASAL (18:58)
[2019-12-07] MEDS: enoxaparin 40 mg/0.4 mL Syringe SUBCUT (18:59)
--- NOTE | 2019-12-07 19:53 | PM.PN ---
Subjective Subjective: Interval history: Patient reported improvement in symptoms today evening but still in mild respiratory distress, took a shower, oxygen requirement came down to 2 L nasal cannula. Also complained of nasal congestion and difficulty breathing while sleeping. Already on Flonase twice daily. No fevers, WBC 16,000, respiratory viral panel sent. Vitals/I&O/Wt Last Vital Signs Temp 97.8 F 12/07/19 19:36 Pulse 82 12/07/19 19:47 Resp 18 12/07/19 19:42 BP 123/74 12/07/19 19:36 Pulse Ox 94 12/07/19 19:42 12/07/19 12/07/19 12/07/19 06:59 14:59 22:59 Intake Total 900 / 1500 360 / 360 120 / 480 Balance 900 / 1500 360 / 360 120 / 480 Weight last 48 hrs Weight 263 lb 8 oz Weight 264 lb 11.2 oz Physical Exam Narrative: EXAM NARRATIVE: General: alert, in mild respiratory distress, on 2 L nasal cannula, sitting in bed HEENT: conj clear, EOMI, PERRL, mmm, Neck: supple, no meningismus Heme: no cervical LAP Pulmonary: CTAB, no wheezing Cardiovascular: rrr, nl s1s2, no mrg Abdomen: soft, nt, nd, no r/g, bs+ Extremities: pulses +, no edema, no c/c : no CVA tenderness Skin: intact, no rash MSK: no back or neck pain Neurologic: grossly intact Data : 12/07/19 05:24 12/07/19 05:24 Micro: Microbiology 12/05/19 18:30 Gram Stain - Final Sputum - Expectorated Sputum Sputum Culture - Preliminary A&P Assessment and plan (1) Acute exacerbation of chronic obstructive airways disease: Status: Acute (2) Acute on chronic respiratory failure with hypoxia and hypercapnia: Status: Acute (3) Pneumonitis: Status: Acute (4) Type 2 diabetes mellitus: Status: Acute Qualifiers: Diabetes mellitus retirement insulin use: without band scroll saw operator use Diabetes mellitus complication status: with other specified complication Qualified Code(s): E11.69 - Type 2 diabetes mellitus with other specified complication #Acute on chronic respiratory failure with hypoxia and hypercapnia likely due to COPD exacerbation #Likely chronic CO2 retainer in view of COPD and KASSIDY #Sinus and nasal congestion -Negative CTPA and normal d-dimer essentially rules out PE/DVT -Normal inflammatory markers except elevated ferritin with normal CT chest and COVID testing thrice ruled out COVID 19 pneumonia -Normal WBC (today 16K could be due to steroids), no fevers, cultures negative so far, negative MRSA, no infiltrates on imaging rule out active pneumonic process (bacterial or fungal). No need for bronchoscopy now. -CT suggestive of emphysema and with inspiratory wheezing on examination with significant history of smoking suggestive of COPD exacerbation -Continue scheduled DuoNeb nebulizations every 4 hours -Continue Solu-Medrol 40 mg every 6 hours scheduled-monitor sugars; Taper steroids based on clinical response -Azithromycin to cover bronchitis/atypical infection -Seems like Baseline CO2 will be slightly higher than 40; -Patient could not tolerate BiPAP overnight and said he could not sleep for more than 2 hours due to nasal/sinus congestion; - already on Flonase twice daily added Claritin 10 mg daily -Respiratory viral panel pending; if possible Legionella, mycoplasma-already received azithromycin for atypical pneumonia -Echo 12/06/2019: EF 60% with no wall motion abnormalities but overall technically difficult study to draw conclusions; clinically does not look in CHF exacerbation #KASSIDY on CPAP-noncompliant Did not tolerate BiPAP at night Sleep study as outpatient and possible re-titration Medical condition, labs, investigations, medications, counseling regarding medication compliance, side effects, importance of follow-up appointments, smoking-its adverse effects and importance of cessation and plan of care-everything explained in detail to the patient. Patient verbalized understanding and agreed with the plan of care. Recommendations conveyed to hospitalist Thanks for the consult and will follow based on clinical response Attestations Medical Necessity Statement*: COPD exacerbation with hypoxia and in mild respiratory distress Critical Care Time: Critical Care Time (min): 35 Coding Level of Care Code Acute Grease Worker for [facility] Fwd Diagnoses Acute exacerbation of chronic obstructive airways disease J44.1 Acute on chronic respiratory failure with hypoxia and hypercapnia J96.21; J96.22 Pneumonitis J18.9 Type 2 diabetes mellitus E11.69 Diabetes mellitus retirement insulin use: without retirement use Diabetes mellitus complication status: with other specified complication
[2019-12-07] MEDS: trazodone 100 mg Tablet PO (20:33)
[2019-12-07 20:37] LABS: Glucose Point of Care 334 mg/dL (70-110)
[2019-12-08] VITALS (11 sets, daily range): BP systolic 112–133; BP diastolic 62–81; PULSE 70–101; RESP 17–22; TEMP 36.5–36.6; O2SAT 88–96
[2019-12-08 04:49] LABS: Basophils % 0.1 %; Hematocrit 50.9 % (42.0-52.0); Hemoglobin 16.2 g/dL (11.7-16.6); Lymphocytes # 0.8 10^3/uL (0.8-4.8); Lymphocytes % 5.7 %; Mean Corpuscular HGB Conc 31.8 g/dL (30.0-36.0); Mean Corpuscular Hemoglobin 31.3 pg (28.0-34.0); Mean Corpuscular Volume 98.5 fL (80-94); Mean Platelet Volume 11.1 fL (7.4-10.4); Monocytes # 0.6 10^3/uL (0.2-0.9); Monocytes % 4.1 %; Neutrophils # 12.55 10^3/uL (1.8-7.7); Neutrophils % 89.6 %; Nucleated Red Blood Cells % 0 %; Platelet Count 220 10^3/cmm (130-400); Red Blood Count 5.17 10^6/uL (4.1-5.3); Red Cell Distribution Width 13.3 % (12.1-15.1)
[2019-12-08 05:17] LABS: Anion Gap 12.8 (5-19); Blood Urea Nitrogen 27 mg/dL (8-23); Carbon Dioxide 31 mmol/L (22-29); Chloride 102 mmol/L (98-107); Glucose 213 mg/dL (65-115); Potassium 4.8 mmol/L (3.5-5.1); Sodium 141 mmol/L (136-145)
[2019-12-08 05:18] LABS: Alanine Aminotransferase 20 U/L (0-41); Albumin Level 3.5 g/dL (3.5-5.2); Alkaline Phosphatase 43 IU/L (40-130); Aspartate Amino Transferase 12 U/L (0-40); Calcium 8.7 mg/dL (8.5-10.5); Globulin 2.6 g/dL (1.3-4.6); Osmolality Calculated 295 mOsm/kg (285-295); Total Bilirubin 0.3 mg/dL (0.15-1.2); Total Protein 6.1 g/dL (6.6-8.7)
[2019-12-08] MEDS: insulin glargine 100 units/1 mL 20 UNIT SUBCUT (05:25)
[2019-12-08 06:39] LABS: Glucose Point of Care 196 mg/dL (70-110)
[2019-12-08] MEDS: ipratropium-albuterol 3 mL Neb INHALATION ×3 (07:58→21:19)
[2019-12-08] MEDS: ferrous gluconate 324 mg Tablet PO ×2 (08:30→17:57)
[2019-12-08] MEDS: lisinopril 10 mg Tablet PO (09:27)
[2019-12-08] MEDS: thiamine 100 mg Tablet PO (09:27)
[2019-12-08] MEDS: ascorbic acid 500 mg Tablet PO ×2 (09:27→17:56)
[2019-12-08] MEDS: benzonatate 100 mg Capsule PO (09:27)
[2019-12-08] MEDS: azithromycin 250 mg Tablet 500 MG PO (09:27)
[2019-12-08] MEDS: loratadine 10 mg Tablet PO (09:27)
[2019-12-08] MEDS: fluticasone nasal spray 16gm Btl 1 SPRAY NASAL ×2 (09:30→17:57)
[2019-12-08 11:43] LABS: Glucose Point of Care 177 mg/dL (70-110)
--- NOTE | 2019-12-08 14:04 | P.PN_ITS ---
Subjective Subjective: Interval history: No events overnight. States his pain mildly better. He requested being in hospital. On examination he is on 2 L oxygen 94%. He sitting in a chair. Denies of having any nausea, vomiting, headache, palpitation, chest pain. Vitals/I&O/Wt Last Vital Signs Temp 97.9 F 12/08/19 10:45 Pulse 88 12/08/19 11:27 Resp 20 H 12/08/19 11:27 BP 114/72 12/08/19 10:45 Pulse Ox 90 12/08/19 11:27 12/07/19 12/08/19 12/08/19 22:59 06:59 14:59 Intake Total 480 / 840 720 / 720 Balance 480 / 840 720 / 720 Weight last 48 hrs Weight 119.703 kg Weight 119.522 kg Physical Exam Narrative: EXAM NARRATIVE: General: No acute distress, AO x3, morbidly obese, anxious HEENT: PERRLA, pupils bilaterally equal and reactive Chest: Normal vesicular breath sounds, bilateral occasional diffuse rhonchi, equal good air entry bilaterally CVS: S1-S2 regular, no murmurs, no tachycardia, no gallops, no rubs Abdomen: Soft, nontender, no organomegaly, bowel sounds present Neuro: No focal deficits, no facial deformity, AO x3, power 5/5 in all limbs Data : 12/08/19 04:08 12/08/19 04:08 Micro: Microbiology 12/05/19 18:30 Gram Stain - Final Sputum - Expectorated Sputum Sputum Culture - Final A&P Assessment and plan (1) Acute exacerbation of chronic obstructive airways disease: Status: Acute (2) Type 2 diabetes mellitus: Status: Acute Qualifiers: Diabetes mellitus group home insulin use: without group home use Diabetes mellitus complication status: with other specified complication Qualified Code(s): E11.69 - Type 2 diabetes mellitus with other specified complication (3) Pneumonitis: Status: Acute (4) Hypertension: Status: Acute (5) COVID-19 ruled out: Status: Acute Additional A&P Information Shortness of breath: Most likely because of COPD exacerbation versus pneumonitis. He gives history of using an old nebulizer before his symptoms got worse. He cannot rule out mold. Though symptoms have been to acute for a fungal infection. Symptoms are most consistent with COPD exacerbation because of viral bronchitis. But at baseline he does not require oxygen and not requiring up to 4 L so we will have to rule out other infections like cryptococcal, mycoplasma, coccidial. Patient is not immunocompromised. We will check HIV status. COVID-19 has been ruled out. PE has been ruled out with CTA PE and negative D-Dimer. Echocardiogram does not show any systolic or diastolic dysfunction or regional wall motion abnormality. Case discussed with pulmonology. Recommendations appreciated. For now we will hold off on any bronchoscopy. If patient develops fever or worsens we will plan then as per pulmonology recommendations. Continue with DuoNeb's every 4 hours, budesonide twice daily. Wean Solu-Medrol 40 mg every 12. We will plan to wean tomorrow. BiPAP overnight if tolerated. Oxygen supplementation keeping saturation over 90%. For now patient does not have any signs of infection. Patient has remained afebrile. Leukocytosis most likely secondary to steroid use. We will continue to hold off on antibiotics for committee acquired pneumonia. Only continue with azithromycin which will cover for atypicals. Urine bacterial antigen for mycoplasma to be sent. Results still awaited. Sputum culture results awaited. Robitussin and Tessalon Perles for cough as needed. Type 2 diabetes mellitus: Insulin sliding scale at high dose before meals and at bedtime. Start patient on Lantus 20 units every morning. Sugars elevated most likely secondary to steroid use. Hypertension: Not a known hypertensive. Goal blood pressure less than 140/90 mmHg. Start patient on lisinopril 10 mg daily. Iron deficiency anemia: Start patient on oral iron supplementation. Carb consistent diet. Full code. For now Lovenox at prophylactic dose. Patient care we will discussed with his . Plan of care was also discussed she verbalized understanding and agreed. Attestations Medical Necessity Statement*: Shortness of breath, most likely COPD exacerbation Time Spent in Patient Care: Greater than 35 minutes (>than 50% of time spent in counselling and/or direct pt care on unit) . Coding Level of Care Code Acute Sales Forecast Analyst for Srikanth Otero Diagnoses Acute exacerbation of chronic obstructive airways disease J44.1 Type 2 diabetes mellitus E11.69 Diabetes mellitus group home insulin use: without group home use Diabetes mellitus complication status: with other specified complication Pneumonitis J18.9 Hypertension I10 COVID-19 ruled out Z03.818
--- NOTE | 2019-12-08 14:27 | P.PN_ITS ---
Subjective Subjective: Interval history: No events overnight. Saturating 93% on 2 L oxygen. Reported improvement in his symptoms. But still coughing of blood with thick secretions. Send secretions for culture again today. Will continue nebulizations and steroid taper based on clinical response. Chest x-ray and ABG in a.m. tomorrow. Vitals/I&O/Wt Last Vital Signs Temp 97.9 F 12/08/19 10:45 Pulse 88 12/08/19 11:27 Resp 20 H 12/08/19 11:27 BP 114/72 12/08/19 10:45 Pulse Ox 90 12/08/19 11:27 12/07/19 12/08/19 12/08/19 22:59 06:59 14:59 Intake Total 480 / 840 720 / 720 Balance 480 / 840 720 / 720 Weight last 48 hrs Weight 263 lb 14.4 oz Weight 263 lb 8 oz Physical Exam Narrative: EXAM NARRATIVE: General: alert, in mild respiratory distress, on 2 L nasal cannula, sitting in bed HEENT: conj clear, EOMI, PERRL, mmm, Neck: supple, no meningismus Heme: no cervical LAP Pulmonary: CTAB, no wheezing Cardiovascular: rrr, nl s1s2, no mrg Abdomen: soft, nt, nd, no r/g, bs+ Extremities: pulses +, no edema, no c/c : no CVA tenderness Skin: intact, no rash MSK: no back or neck pain Neurologic: grossly intact Data : 12/08/19 04:08 12/08/19 04:08 Micro: Microbiology 12/08/19 10:45 Gram Stain - Final Sputum - Expectorated Sputum 12/05/19 18:30 Gram Stain - Final Sputum - Expectorated Sputum Sputum Culture - Final A&P Assessment and plan (1) Acute exacerbation of chronic obstructive airways disease: Status: Acute (2) Acute on chronic respiratory failure with hypoxia and hypercapnia: Status: Acute (3) Pneumonitis: Status: Acute (4) Type 2 diabetes mellitus: Status: Acute Qualifiers: Diabetes mellitus avionics electrical engineer insulin use: without shelter use Diabetes mellitus complication status: with other specified complication Qualified Code(s): E11.69 - Type 2 diabetes mellitus with other specified complication #Acute on chronic respiratory failure with hypoxia and hypercapnia likely due to COPD exacerbation #Likely chronic CO2 retainer in view of COPD and KASSIDY #Sinus and nasal congestion -CT suggestive of emphysema and with inspiratory wheezing on examination with significant history of smoking suggestive of COPD exacerbation -Normal WBC (today 14K could be due to steroids), no fevers, cultures negative so far, negative MRSA, no infiltrates on imaging rule out active pneumonic process (bacterial or fungal). No need for bronchoscopy now. -Currently on 2 L oxygen nasal cannula saturating 93%; reported improvement in his symptoms -Continue DuoNeb nebulizations every 4 hours, Solu-Medrol 40 every 12 and taper based on clinical response -Azithromycin to cover atypical infection -Respiratory viral panel pending; if possible Legionella, mycoplasma-already received azithromycin for atypical pneumonia -Increase in thick mucus secretions; chest x-ray and ABG in a.m. -Negative CTPA and normal d-dimer essentially rules out PE/DVT -Normal inflammatory markers except elevated ferritin with normal CT chest and COVID testing thrice ruled out COVID 19 pneumonia -Seems like Baseline CO2 will be slightly higher than 40; -already on Flonase twice daily added Claritin 10 mg daily -Echo 12/06/2019: EF 60% with no wall motion abnormalities but overall technically difficult study to draw conclusions; clinically does not look in CHF exacerbation #KASSIDY on CPAP-noncompliant Did not tolerate BiPAP at night Sleep study as outpatient and possible re-titration Medical condition, labs, investigations, medications, counseling regarding medication compliance, side effects, importance of follow-up appointments, smoking-its adverse effects and importance of cessation and plan of care- everything explained in detail to the patient. Patient verbalized understanding and agreed with the plan of care. Recommendations conveyed to hospitalist Thanks for the consult Attestations Medical Necessity Statement*: COPD exacerbation with hypoxia still requiring 2 L oxygen Time Spent in Patient Care: 16 - 35 minutes (>than 50% of time spent in counselling and/or direct pt care on unit) . Coding Level of Care Code Acute Technical Artist for Srikanth Otero Diagnoses Acute exacerbation of chronic obstructive airways disease J44.1 Acute on chronic respiratory failure with hypoxia and hypercapnia J96.21; J96.22 Pneumonitis J18.9 Type 2 diabetes mellitus E11.69 Diabetes mellitus avionics electrical engineer insulin use: without avionics electrical engineer use Diabetes mellitus complication status: with other specified complication
[2019-12-08 17:13] LABS: Glucose Point of Care 243 mg/dL (70-110)
[2019-12-08] MEDS: ALPRAZolam 0.25 mg Tablet 0.125 MG PO (18:05)
[2019-12-08 20:27] LABS: Glucose Point of Care 390 mg/dL (70-110)
[2019-12-08] MEDS: trazodone 100 mg Tablet PO (20:36)
[2019-12-08] MEDS: enoxaparin 40 mg/0.4 mL Syringe SUBCUT (20:36)
[2019-12-08] MEDS: budesonide 0.5 mg/2 mL Neb INHALATION (21:19)
[2019-12-09] VITALS (19 sets, daily range): BP systolic 116–140; BP diastolic 64–81; PULSE 64–94; RESP 11–20; TEMP 36.4–36.8; O2SAT 2–98
[2019-12-09 04:58] LABS: Basophils % 0.2 %; Eosinophils % 0.1 %; Hemoglobin 16.3 g/dL (11.7-16.6); Lymphocytes % 6.8 %; Mean Corpuscular HGB Conc 31.3 g/dL (30.0-36.0); Mean Platelet Volume 10.8 fL (7.4-10.4); Monocytes % 6.9 %; Neutrophils # 11.88 10^3/uL (1.8-7.7); Neutrophils % 84.8 %; Nucleated Red Blood Cells % 0 %; Platelet Count 200 10^3/cmm (130-400); Red Blood Count 5.25 10^6/uL (4.1-5.3); Red Cell Distribution Width 13.1 % (12.1-15.1)
[2019-12-09 05:24] LABS: Alanine Aminotransferase 25 U/L (0-41); Albumin Level 3.6 g/dL (3.5-5.2); Alkaline Phosphatase 48 IU/L (40-130); Aspartate Amino Transferase 17 U/L (0-40); Blood Urea Nitrogen 29 mg/dL (8-23); Calcium 9.2 mg/dL (8.5-10.5); Carbon Dioxide 29 mmol/L (22-29); Chloride 102 mmol/L (98-107); Creatinine Clr Calc Pharmacy 107.7199; Globulin 2.2 g/dL (1.3-4.6); Glomerular Filtration Rate 85.8 mL/min (90-130); Glucose 241 mg/dL (65-115); Osmolality Calculated 291 mOsm/kg (285-295); Sodium 138 mmol/L (136-145); Total Bilirubin 0.3 mg/dL (0.15-1.2); Total Protein 5.8 g/dL (6.6-8.7)
--- NOTE | 2019-12-09 05:45 | PC.NURSE ---
End of shift: Patient has had a uneventful shift. Patient has rested well. No complaints of pain. Patient remains alert and oriented. Will continue to monitor.
[2019-12-09 05:49] LABS: Anion Gap 11.8 (5-19); Potassium 4.8 mmol/L (3.5-5.1)
--- NOTE | 2019-12-09 06:00 | XRR_ITS ---
PROCEDURE INFORMATION: Exam: XR Chest, 1 View Exam date and time: 12/09/2019 6:52 AM Age: 59 years old Clinical indication: Shortness of breath. TECHNIQUE: Imaging protocol: XR of the chest Views: 1 view. COMPARISON: CT chest con [id number] 12/06/2019 9:32 AM FINDINGS: Lungs: No lung consolidation or pulmonary edema. Pleural space: No pleural effusion or pneumothorax. Heart/Mediastinum: The cardiac silhouette is not enlarged. The mediastinal contours are normal. Bones/joints: No acute osseous abnormality. XR/XR chest 1V portable [id number] IMPRESSION: No acute abnormality.
[2019-12-09] MEDS: insulin glargine 100 units/1 mL 20 UNIT SUBCUT (06:08)
[2019-12-09 06:16] LABS: Glucose Point of Care 240 mg/dL (70-110)
[2019-12-09 06:18] LABS: ABG PCO2 59.7 mmHg (35-45); ABG PH Result 7.36 (7.35-7.45); Arterial Blood Gas Hematocrit 51.5 % (42-52); Base Excess ABG 6.1 mmol/L (-2.0-2.0); Blood Gas Allen Test Pos; Blood Gas Sample Site Brachial, right; Blood Gas Sample Type Arterial; Carboxyhemoglobin 0.9 %THgb (0.4-20.1); HGB O2 Sat 92.2 % (95-100); Ionized Calcium Level - ABG 1.2 mmol/L (1.1-1.4); Methemoglobin 0.7 % (0.4-1.5); Oxygen Saturation ABG 93.7; Potassium Level - ABG 4.7 mmol/L (3.5-5.0); Total Hemoglobin 16.8 g/dL (14-18)
[2019-12-09 06:19] LABS: Alveolar-Arterial Oxygen Gradi 7.8 mmHg (5-10); Oxygen Device NC
[2019-12-09] MEDS: ferrous gluconate 324 mg Tablet PO ×2 (07:32→17:02)
[2019-12-09] MEDS: azithromycin 250 mg Tablet 500 MG PO (08:24)
[2019-12-09] MEDS: ascorbic acid 500 mg Tablet PO ×2 (08:24→17:02)
[2019-12-09] MEDS: thiamine 100 mg Tablet PO (08:24)
[2019-12-09] MEDS: lisinopril 10 mg Tablet PO (08:24)
[2019-12-09] MEDS: fluticasone nasal spray 16gm Btl 1 SPRAY NASAL ×2 (08:24→17:02)
[2019-12-09] MEDS: loratadine 10 mg Tablet PO (08:24)
--- NOTE | 2019-12-09 09:30 | PC.NURSE ---
Dr. Macedo at bedside. Adjust plan of care according to sound effects technician recommendations.
[2019-12-09] MEDS: ALPRAZolam 0.25 mg Tablet 0.125 MG PO (10:32)
[2019-12-09 10:58] LABS: Glucose Point of Care 109 mg/dL (70-110)
--- NOTE | 2019-12-09 11:00 | PC.NURSE ---
Patient unable to tolerate BiPap. Nurse collaborating with RT to attempt a different fitting mask to be more comfortable for the patient. Nurse to continue to monitor.
--- NOTE | 2019-12-09 11:45 | PC.NURSE ---
Patient requests to have door shut and traffic decreased as he wishes to try and sleep. Sign placed on door to report to nurse's station before entering. Nurse to continue to monitor.
--- NOTE | 2019-12-09 12:30 | PC.NURSE ---
Dr. Kong at bedside. Patient reports that BiPap feels like pressure setting is too high. Dr. Kong requests for RT to change IPap and EPap settings to 10-5 and titrate as needed to maintain tidal volume of 360-400, RBVO. Patient desat to 86% on RA, patient 93% on 2L NC, wean as tolerated.
[2019-12-09] MEDS: ipratropium-albuterol 3 mL Neb INHALATION ×4 (12:50→23:55)
--- NOTE | 2019-12-09 12:54 | P.PN_ITS ---
Subjective Subjective: Interval history: No events overnight. slept better than previous nights ABG in am showed some CO2 retention but PH 7.36 CXR in am: Normal Clinically stable still requiring 2 L oxygen. Reported improvement in his symptoms. Will continue current management Vitals/I&O/Wt Last Vital Signs Temp 97.9 F 12/09/19 10:36 Pulse 82 12/09/19 12:50 Resp 18 12/09/19 12:50 BP 117/70 12/09/19 10:36 Pulse Ox 92 12/09/19 12:50 12/08/19 12/09/19 12/09/19 22:59 06:59 14:59 Intake Total 360 / 1080 220 / 1300 240 / 240 Balance 360 / 1080 220 / 1300 240 / 240 Weight last 48 hrs Weight 268 lb 6.4 oz Weight 263 lb 14.4 oz Physical Exam Narrative: EXAM NARRATIVE: General: alert, in mild respiratory distress, on 2 L nasal cannula, sitting in bed HEENT: conj clear, EOMI, PERRL, mmm, Neck: supple, no meningismus Heme: no cervical LAP Pulmonary: end inspiratory wheeze bilaterally Cardiovascular: rrr, nl s1s2, no mrg Abdomen: soft, nt, nd, no r/g, bs+ Extremities: pulses +, no edema, no c/c : no CVA tenderness Skin: intact, no rash MSK: no back or neck pain Neurologic: grossly intact Data : 12/09/19 04:27 12/09/19 04:27 Micro: Microbiology 12/09/19 08:30 Bacterial Antigens - Final Urine,Voided 12/08/19 10:45 Gram Stain - Final Sputum - Expectorated Sputum Sputum Culture - Preliminary 12/05/19 18:30 Gram Stain - Final Sputum - Expectorated Sputum Sputum Culture - Final A&P Assessment and plan (1) Acute exacerbation of chronic obstructive airways disease: Status: Acute (2) Acute on chronic respiratory failure with hypoxia and hypercapnia: Status: Acute (3) Pneumonitis: Status: Acute (4) Type 2 diabetes mellitus: Status: Acute Qualifiers: Diabetes mellitus buttermaker continuous churn insulin use: without longterm use Diabetes mellitus complication status: with other specified complication Qualified Code(s): E11.69 - Type 2 diabetes mellitus with other specified complication #Acute on chronic respiratory failure with hypoxia and hypercapnia likely due to COPD exacerbation #Likely chronic CO2 retainer in view of COPD and KASSIDY #Sinus and nasal congestion -CT suggestive of emphysema and with inspiratory wheezing on examination with significant history of smoking suggestive of COPD exacerbation -Normal WBC (today 14K could be due to steroids), no fevers, cultures negative so far, negative MRSA, no infiltrates on imaging rule out active pneumonic process (bacterial or fungal). No need for bronchoscopy now. -Currently on 2 L oxygen nasal cannula saturating 93%; reported improvement in his symptoms - Morning ABG slight CO2 retention with pH 7.36; recommended BiPAP as tolerated 10/5 and target TV 380 -Continue DuoNeb nebulizations every 4 hours, Solu-Medrol 40 every 12 and taper based on clinical response -Azithromycin to cover atypical infection -Respiratory viral panel still pending; if possible Legionella, mycoplasma- already received azithromycin for atypical pneumonia -Negative CTPA and normal d-dimer essentially rules out PE/DVT -Normal inflammatory markers except elevated ferritin with normal CT chest and COVID testing thrice ruled out COVID 19 pneumonia -Seems like Baseline CO2 will be slightly higher than 40; - on Flonase twice daily and Claritin 10 mg daily to help with upper airway congestion -Echo 12/06/2019: EF 60% with no wall motion abnormalities but overall technically difficult study to draw conclusions; clinically does not look in CHF exacerbation #KASSIDY on CPAP-noncompliant recommended BiPAP as tolerated 10/5 and target TV 380 Sleep study as outpatient and possible re-titration Medical condition, labs, investigations, medications, counseling regarding medication compliance, side effects, importance of follow-up appointments, smoking-its adverse effects and importance of cessation and plan of care- everything explained in detail to the patient. Patient verbalized understanding and agreed with the plan of care. Recommendations conveyed to hospitalist Thanks for the consult Attestations Medical Necessity Statement*: COPD exacerbation with hypoxia still requiring 2 L oxygen supplementation Time Spent in Patient Care: 16 - 35 minutes (>than 50% of time spent in counselling and/or direct pt care on unit) . Coding Level of Care Code Established Pt Acute Health Care Administrator for Srikanth Otero Patient Type Established History Problem Focused Exam Expanded Problem Focused Medical Decision Making Moderate Complexity Diagnoses Acute exacerbation of chronic obstructive airways disease J44.1 Acute on chronic respiratory failure with hypoxia and hypercapnia J96.21; J96.22 Pneumonitis J18.9 Type 2 diabetes mellitus E11.69 Diabetes mellitus longterm insulin use: without longterm use Diabetes mellitus complication status: with other specified complication Time Spent (min) 25
[2019-12-09 13:00] LABS: Cytomegalovirus Antibody (IGG) <0.60 U/mL; Cytomegalovirus Antibody (IGM) <30.00 AU/mL
--- NOTE | 2019-12-09 13:45 | PC.NURSE ---
Patient wore BiPap for approximately 30-45 minutes. States he was able to sleep a little with it on and feels a little better. Patient took self off BiPap and put self on nasal cannula. Up ad tiffanie to chair. Patient states he would like to take a shower.
--- NOTE | 2019-12-09 15:57 | P.PN_ITS ---
Subjective Subjective: Interval history: This morning patient was seen laying in bed, states that he is gotten better since his hospitalization, but today he just feels more wheezy than usual, still feels short of breath, requiring 2 L nasal cannula, but was on 5 L a few days ago, no fevers overnight, no chest pain Vitals/I&O/Wt Last Vital Signs Temp 97.8 F 12/09/19 14:43 Pulse 67 12/09/19 14:43 Resp 20 H 12/09/19 14:43 BP 116/65 12/09/19 14:43 Pulse Ox 91 12/09/19 14:43 12/09/19 12/09/19 12/09/19 06:59 14:59 22:59 Intake Total 220 / 1300 480 / 480 Balance 220 / 1300 480 / 480 Weight last 48 hrs Weight 121.744 kg Weight 119.703 kg Physical Exam Const: COMMON NORMALS: no acute distress and patient oriented x3 HENMT: COMMON NORMALS: normocephalic HEAD & SCALP: normocephalic Neck/C-Spine: COMMON NORMALS: no JVD Resp: COMMON NORMALS: normal respiratory effort, No retractions and No use of accessory muscles AUSCULTATION: wheezes Cardio: COMMON NORMALS: no JVD, regular rate, regular rhythm, S1 normal heart sound present and S2 normal heart sound present RATE: regular rate RHYTHM: regular rhythm HEART SOUNDS: S1 normal heart sound present and S2 normal h eart sound present GI: COMMON NORMALS: Normal to inspection, nondistended, normoactive bowel sounds present, Soft to palpation, non-tender, No hepatosplenomegaly present, no masses and no bruits PALPATION: Yes Soft to palpation and Yes No hepatosplenomegaly present Extremity: COMMON NORMALS: capillary refill normal, no clubbing, cyanosis or edema, no calf tenderness and no pedal edema Neuro: COMMON NORMALS: patient oriented x3 Psych: COMMON NORMALS: mental status grossly normal Data : 12/09/19 04:27 12/09/19 04:27 Micro: Microbiology 12/09/19 08:30 Bacterial Antigens - Final Urine,Voided 12/08/19 10:45 Gram Stain - Final Sputum - Expectorated Sputum Sputum Culture - Preliminary 12/05/19 18:30 Gram Stain - Final Sputum - Expectorated Sputum Sputum Culture - Final A&P Assessment and plan (1) Acute exacerbation of chronic obstructive airways disease: Status: Acute (2) Type 2 diabetes mellitus: Status: Acute Qualifiers: Diabetes mellitus exterminator helper termite insulin use: without exterminator helper termite use Diabetes mellitus complication status: with other specified complication Qualified Code(s): E11.69 - Type 2 diabetes mellitus with other specified complication (3) Pneumonitis: Status: Acute (4) Hypertension: Status: Acute (5) COVID-19 ruled out: Status: Acute Additional A&P Information Shortness of breath: Most likely because of COPD exacerbation wheezing on exam today, but down to [address] scan shows moderate centrilobular emphysema HIV negative, not immunocompromise COVID-19 has been ruled out Viral panel pending PE has been ruled out with CTA PE and negative D-Dimer. Echocardiogram does not show any systolic or diastolic dysfunction or regional wall motion abnormality. Case discussed with pulmonology. Recommendations appreciated Continue with DuoNeb's every 4 hours, budesonide twice daily. Wean Solu-Medrol 40 mg every 12. Continue azithromycin 500 mg daily BiPAP overnight if tolerated. Oxygen supplementation keeping saturation over 90%. For now patient does not have any signs of infection. Patient has remained afebrile. Leukocytosis most likely secondary to steroid use. We will continue to hold off on antibiotics for committee acquired pneumonia. Only continue with azithromycin which will cover for atypicals. Urine bacterial antigen for mycoplasma to be sent. Results still awaited. Sputum culture results awaited. Robitussin and Tessalon Perles for cough as needed. Type 2 diabetes mellitus: Insulin sliding scale at high dose before meals and at bedtime. Start patient on Lantus 20 units every morning. Sugars elevated most likely secondary to steroid use. Hypertension: Not a known hypertensive. Goal blood pressure less than 140/90 mmHg. Start patient on lisinopril 10 mg daily. Iron deficiency anemia: Start patient on oral iron supplementation. Carb consistent diet. Full code. For now Lovenox at prophylactic dose. Patient care we will discussed with his . Plan of care was also discussed she verbalized understanding and agreed. Attestations Medical Necessity Statement*: Patient requires continued hospitalization due to COPD exacerbation Coding Level of Care Code Acute Fixed Capital Clerk for Srikanth Otero Diagnoses Acute exacerbation of chronic obstructive airways disease J44.1 Type 2 diabetes mellitus E11.69 Diabetes mellitus exterminator helper termite insulin use: without retirement use Diabetes mellitus complication status: with other specified complication Pneumonitis J18.9 Hypertension I10 COVID-19 ruled out Z03.818
[2019-12-09 16:07] LABS: Glucose Point of Care 355 mg/dL (70-110)
--- NOTE | 2019-12-09 17:45 | PC.NURSE ---
Patient states that he becomes increasingly anxious while wearing bipap and is worried that he will not get any sleep tonight. Needs expressed to Dr. Macedo. Physician denies clinical indication for medication changes at this time. Nurse to continue to monitor.
--- NOTE | 2019-12-09 19:18 | PC.NURSE ---
Patient resting in bed. Patient denies any pain at this time. Patient wearing 2L Nasal cannula. Patient states he is planning on wearing his bipap tonight. Will continue to monitor.
[2019-12-09 20:08] LABS: Glucose Point of Care 295 mg/dL (70-110)
[2019-12-09] MEDS: budesonide 0.5 mg/2 mL Neb INHALATION (20:34)
[2019-12-09] MEDS: trazodone 100 mg Tablet PO (20:59)
[2019-12-09] MEDS: enoxaparin 40 mg/0.4 mL Syringe SUBCUT (20:59)
[2019-12-10] VITALS (15 sets, daily range): BP systolic 103–137; BP diastolic 64–76; PULSE 51–90; RESP 15–20; TEMP 36.4–36.7; O2SAT 82–97; BMI 42.0
[2019-12-10 05:08] LABS: Basophils % 0.2 %; Hematocrit 49.3 % (42.0-52.0); Hemoglobin 16.1 g/dL (11.7-16.6); Lymphocytes # 0.8 10^3/uL (0.8-4.8); Lymphocytes % 6.1 %; Mean Corpuscular HGB Conc 32.7 g/dL (30.0-36.0); Mean Corpuscular Hemoglobin 31.3 pg (28.0-34.0); Mean Corpuscular Volume 95.9 fL (80-94); Mean Platelet Volume 11.8 fL (7.4-10.4); Monocytes # 0.5 10^3/uL (0.2-0.9); Monocytes % 4.1 %; Neutrophils # 11.72 10^3/uL (1.8-7.7); Neutrophils % 88.2 %; Nucleated Red Blood Cells % 0 %; Platelet Count 211 10^3/cmm (130-400); Red Blood Count 5.14 10^6/uL (4.1-5.3); Red Cell Distribution Width 12.7 % (12.1-15.1); White Blood Count 13.3 10^3/uL (4.0-10.0)
[2019-12-10 05:53] LABS: Alanine Aminotransferase 30 U/L (0-41); Albumin Level 3.3 g/dL (3.5-5.2); Alkaline Phosphatase 46 IU/L (40-130); Aspartate Amino Transferase 16 U/L (0-40); Blood Urea Nitrogen 26 mg/dL (8-23); Calcium 8.3 mg/dL (8.5-10.5); Carbon Dioxide 29 mmol/L (22-29); Chloride 99 mmol/L (98-107); Globulin 2.2 g/dL (1.3-4.6); Glomerular Filtration Rate 85.8 mL/min (90-130); Glucose 292 mg/dL (65-115); Magnesium 2.1 mg/dL (1.7-2.3); Osmolality Calculated 296 mOsm/kg (285-295); Phosphorus 3.5 mg/dL (2.5-4.5); Sodium 139 mmol/L (136-145); Total Bilirubin 0.2 mg/dL (0.15-1.2); Total Protein 5.5 g/dL (6.6-8.7)
[2019-12-10 05:55] LABS: Anion Gap 16.8 (5-19); Potassium 5.8 mmol/L (3.5-5.1)
[2019-12-10] MEDS: insulin glargine 100 units/1 mL 20 UNIT SUBCUT (06:12)
[2019-12-10 06:13] LABS: Glucose Point of Care 237 mg/dL (70-110)
[2019-12-10 06:40] LABS: CMV DNA By PCR <200 IU/mL; CMV DNA, QN PCR <2.30 Log IU/mL; SOURCE NOT GIVEN
[2019-12-10 06:54] LABS: Procalcitonin 0.06 ng/mL (0-0.5)
[2019-12-10] MEDS: ipratropium-albuterol 3 mL Neb INHALATION ×3 (07:26→15:46)
[2019-12-10] MEDS: ferrous gluconate 324 mg Tablet PO ×2 (08:03→17:32)
[2019-12-10] MEDS: lisinopril 10 mg Tablet PO (08:03)
[2019-12-10] MEDS: azithromycin 250 mg Tablet 500 MG PO (08:03)
[2019-12-10] MEDS: loratadine 10 mg Tablet PO (08:03)
[2019-12-10] MEDS: thiamine 100 mg Tablet PO (08:03)
[2019-12-10] MEDS: ascorbic acid 500 mg Tablet PO ×2 (08:03→17:32)
[2019-12-10] MEDS: budesonide 0.5 mg/2 mL Neb INHALATION (08:06)
--- NOTE | 2019-12-10 10:15 | PC.NURSE ---
Unit Control Clerk at bedside. After examination doctor requested O2 be turned off and monitor O2 saturation.
[2019-12-10] MEDS: fluticasone nasal spray 16gm Btl 1 SPRAY NASAL ×2 (10:19→18:09)
[2019-12-10 11:03] LABS: Glucose Point of Care 304 mg/dL (70-110)
[2019-12-10 16:12] LABS: Glucose Point of Care 240 mg/dL (70-110)
--- NOTE | 2019-12-10 16:14 | P.PN_ITS ---
Subjective Subjective: Interval history: This morning patient states that he is doing better, lungs sound better, no fevers, no chills, no nausea, no vomiting In the afternoon, after ambulation, patient did desat to the low 80s, required up to 8 L with exertion, had episodes of cough and shortness of breath with exertion Vitals/I&O/Wt Last Vital Signs Temp 98.0 F 12/10/19 15:59 Pulse 73 12/10/19 15:59 Resp 18 12/10/19 15:59 BP 137/70 12/10/19 15:59 Pulse Ox 93 12/10/19 15:59 12/10/19 12/10/19 12/10/19 06:59 14:59 22:59 Intake Total 350 / 950 340 / 340 Balance 350 / 950 340 / 340 Weight last 48 hrs Weight 121.761 kg Weight 121.744 kg Physical Exam Const: COMMON NORMALS: no acute distress and patient oriented x3 HENMT: COMMON NORMALS: normocephalic HEAD & SCALP: normocephalic Neck/C-Spine: COMMON NORMALS: no JVD Resp: COMMON NORMALS: normal respiratory effort, No retractions, No use of accessory muscles and clear to auscultation bilaterally AUSCULTATION: clear to auscultation bilaterally Cardio: COMMON NORMALS: no JVD, regular rate, regular rhythm, S1 normal heart sound present and S2 normal heart sound present RATE: regular rate RHYTHM: regular rhythm HEART SOUNDS: S1 normal heart sound present and S2 normal heart sound present GI: COMMON NORMALS: Normal to inspection, nondistended, normoactive bowel sounds present, Soft to palpation, non-tender, No hepatosplenomegaly present, no masses and no bruits PALPATION: Yes Soft to palpation and Yes No hepatosplenomegaly present Extremity: COMMON NORMALS: capillary refill normal, no clubbing, cyanosis or edema, no calf tenderness and no pedal edema Neuro: COMMON NORMALS: patient oriented x3 Psych: COMMON NORMALS: mental status grossly normal Data : 12/10/19 04:13 12/10/19 04:13 Micro: Microbiology 12/08/19 10:45 Gram Stain - Final Sputum - Expectorated Sputum Sputum Culture - Final 12/04/19 18:03 Blood Culture - Final Blood NO GROWTH AFTER 5 DAYS 08/05/20 14:16 Blood Culture - Final Blood NO GROWTH AFTER 5 DAYS 12/09/19 08:30 Bacterial Antigens - Final Urine,Voided A&P Assessment and plan (1) Acute exacerbation of chronic obstructive airways disease: Status: Acute (2) Type 2 diabetes mellitus: Status: Acute Qualifiers: Diabetes mellitus correction insulin use: without intermediate card tender use Diabetes mellitus complication status: with other specified complication Qualified Code(s): E11.69 - Type 2 diabetes mellitus with other specified complication (3) Pneumonitis: Status: Acute (4) Hypertension: Status: Acute (5) COVID-19 ruled out: Status: Acute Additional A&P Information Shortness of breath: Most likely because of COPD exacerbation At rest he was doing well this morning, no wheezing on exam, on 3 L nasal cannula but with exertion he desats to the low 80s, required up to 8 L, episodes of shortness of breath and cough Likely will require another 24-48HRS HIV negative, not immunocompromise COVID-19 has been ruled out Viral panel pending PE has been ruled out with CTA PE and negative D-Dimer. Echocardiogram does not show any systolic or diastolic dysfunction or regional wall motion abnormality. Case discussed with pulmonology. Recommendations appreciated Continue with DuoNeb's every 4 hours, budesonide twice daily. Wean Solu-Medrol 40 mg every 12. Continue azithromycin 500 mg daily BiPAP overnight if tolerated. Oxygen supplementation keeping saturation over 90%. For now patient does not have any signs of infection. Patient has remained afebrile. Leukocytosis most likely secondary to steroid use. We will continue to hold off on antibiotics for committee acquired pneumonia. Only continue with azithromycin which will cover for atypicals. Urine bacterial antigen for mycoplasma to be sent. Results still awaited. Sputum culture results awaited. Robitussin and Tessalon Perles for cough as needed. Type 2 diabetes mellitus: Insulin sliding scale at high dose before meals and at bedtime. Start patient on Lantus 20 units every morning. Sugars elevated most likely secondary to steroid use. Hypertension: Not a known hypertensive. Goal blood pressure less than 140/90 mmHg. Start patient on lisinopril 10 mg daily. Iron deficiency anemia: Start patient on oral iron supplementation. Carb consistent diet. Full code. For now Lovenox at prophylactic dose. Patient care we will discussed with his . Plan of care was also discussed she verbalized understanding and agreed. Attestations Medical Necessity Statement*: Patient requires continued hospitalization due to COPD exacerbation Coding Level of Care Code Acute Relay Repairer for g Fwd Diagnoses Acute exacerbation of chronic obstructive airways disease J44.1 Type 2 diabetes mellitus E11.69 Diabetes mellitus intermediate card tender insulin use: without correction use Diabetes mellitus complication status: with other specified complication Pneumonitis J18.9 Hypertension I10 COVID-19 ruled out Z03.818
--- NOTE | 2019-12-10 17:21 | P.PN_ITS ---
Subjective Subjective: Interval history: Patient appears clinically much better and is not in respiratory distress even with exertion. Saturating 97% on 2 L. Tried taking of oxygen but desaturated to 84% and has to put back on 2 L again. Vitals/I&O/Wt Last Vital Signs Temp 98.0 F 12/10/19 15:59 Pulse 73 12/10/19 15:59 Resp 18 12/10/19 15:59 BP 137/70 12/10/19 15:59 Pulse Ox 93 12/10/19 15:59 12/10/19 12/10/19 12/10/19 06:59 14:59 22:59 Intake Total 350 / 950 340 / 340 Balance 350 / 950 340 / 340 Weight last 48 hrs Weight 268 lb 7 oz Weight 268 lb 6.4 oz Physical Exam Narrative: EXAM NARRATIVE: General: alert, in mild respiratory distress, on 2 L nasal cannula, sitting in bed HEENT: conj clear, EOMI, PERRL, mmm, Neck: supple, no meningismus Heme: no cervical LAP Pulmonary: Clear bilaterally today Cardiovascular: rrr, nl s1s2, no mrg Abdomen: soft, nt, nd, no r/g, bs+ Extremities: pulses +, no edema, no c/c : no CVA tenderness Skin: intact, no rash MSK: no back or neck pain Neurologic: grossly intact Data : 12/10/19 04:13 12/10/19 04:13 Micro: Microbiology 12/08/19 10:45 Gram Stain - Final Sputum - Expectorated Sputum Sputum Culture - Final 12/04/19 18:03 Blood Culture - Final Blood NO GROWTH AFTER 5 DAYS 12/04/19 14:16 Blood Culture - Final Blood NO GROWTH AFTER 5 DAYS 12/09/19 08:30 Bacterial Antigens - Final Urine,Voided A&P Assessment and plan (1) Acute exacerbation of chronic obstructive airways disease: Status: Acute (2) Acute on chronic respiratory failure with hypoxia and hypercapnia: Status: Acute (3) Pneumonitis: Status: Acute (4) Type 2 diabetes mellitus: Status: Acute Qualifiers: Diabetes mellitus senior care insulin use: without exterminator helper termite use Diabetes mellitus complication status: with other specified complication Qualified Code(s): E11.69 - Type 2 diabetes mellitus with other specified complication #Acute on chronic respiratory failure with hypoxia and hypercapnia likely due to COPD exacerbation #Likely chronic CO2 retainer in view of COPD and KASSIDY #Sinus and nasal congestion -CT suggestive of emphysema and with inspiratory wheezing on examination with significant history of smoking suggestive of COPD exacerbation -Normal WBC (today 14K could be due to steroids), no fevers, cultures negative so far, negative MRSA, no infiltrates on imaging rule out active pneumonic process (bacterial or fungal). No need for bronchoscopy now. -Currently on 2 L oxygen nasal cannula saturating 93%; reported improvement in his symptoms - recommended BiPAP as tolerated 10/5 and target TV 380 -Continue DuoNeb nebulizations every 4 hours, Solu-Medrol 40 every 8 and taper based on clinical response -Azithromycin to cover atypical infection -Respiratory viral panel still pending; if possible Legionella, mycoplasma- already received azithromycin for atypical pneumonia -Negative CTPA and normal d-dimer essentially rules out PE/DVT -Normal inflammatory markers except elevated ferritin with normal CT chest and COVID testing thrice ruled out COVID 19 pneumonia -Seems like Baseline CO2 will be slightly higher than 40; - on Flonase twice daily and Claritin 10 mg daily to help with upper airway congestion -Echo 12/06/2019: EF 60% with no wall motion abnormalities but overall technically difficult study to draw conclusions; clinically does not look in CHF exacerbation #KASSIDY on CPAP-noncompliant recommended BiPAP as tolerated 10/5 and target TV 380 Sleep study as outpatient and possible re-titration Medical condition, labs, investigations, medications, counseling regarding medication compliance, side effects, importance of follow-up appointments, smoking-its adverse effects and importance of cessation and plan of care- everything explained in detail to the patient. Patient verbalized understanding and agreed with the plan of care. 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
--- NOTE | 2019-12-10 17:43 | PC.NURSE ---
Discussed with Dr. Macedo the lab's request for an additional viral swab. Dr. Macedo stated it was not necessary to obtain an adiitional swab today as several nasal swabs were alreaddy collected and sent to lab.
--- NOTE | 2019-12-10 19:43 | PC.NURSE ---
Patient refusing to have telemetry placed.
[2019-12-10 20:25] LABS: Glucose Point of Care 394 mg/dL (70-110)
[2019-12-10] MEDS: enoxaparin 40 mg/0.4 mL Syringe SUBCUT (20:26)
[2019-12-10] MEDS: trazodone 100 mg Tablet PO (23:02)
[2019-12-11] VITALS (9 sets, daily range): BP systolic 100–113; BP diastolic 69–74; PULSE 64–93; RESP 16–19; TEMP 36.6–36.8; O2SAT 85–96
[2019-12-11 05:28] LABS: Basophils % 0.3 %; Hematocrit 50.3 % (42.0-52.0); Hemoglobin 16.3 g/dL (11.7-16.6); Lymphocytes # 0.9 10^3/uL (0.8-4.8); Lymphocytes % 6.7 %; Mean Corpuscular HGB Conc 32.4 g/dL (30.0-36.0); Mean Corpuscular Hemoglobin 31.2 pg (28.0-34.0); Mean Corpuscular Volume 96.2 fL (80-94); Mean Platelet Volume 11.1 fL (7.4-10.4); Monocytes # 0.6 10^3/uL (0.2-0.9); Monocytes % 4.3 %; Neutrophils # 11.87 10^3/uL (1.8-7.7); Neutrophils % 86.7 %; Nucleated Red Blood Cells % 0 %; Platelet Count 221 10^3/cmm (130-400); Red Blood Count 5.23 10^6/uL (4.1-5.3); Red Cell Distribution Width 12.6 % (12.1-15.1); White Blood Count 13.7 10^3/uL (4.0-10.0)
[2019-12-11 05:47] LABS: Alanine Aminotransferase 28 U/L (0-41); Albumin Level 3.1 g/dL (3.5-5.2); Alkaline Phosphatase 41 IU/L (40-130); Anion Gap 8.2 (5-19); Aspartate Amino Transferase 13 U/L (0-40); Blood Urea Nitrogen 24 mg/dL (8-23); Calcium 8.2 mg/dL (8.5-10.5); Carbon Dioxide 36 mmol/L (22-29); Chloride 97 mmol/L (98-107); Globulin 2.4 g/dL (1.3-4.6); Glomerular Filtration Rate 85.8 mL/min (90-130); Glucose 219 mg/dL (65-115); Magnesium 2.2 mg/dL (1.7-2.3); Osmolality Calculated 285 mOsm/kg (285-295); Phosphorus 4.3 mg/dL (2.5-4.5); Potassium 5.2 mmol/L (3.5-5.1); Sodium 136 mmol/L (136-145); Total Bilirubin 0.3 mg/dL (0.15-1.2); Total Protein 5.5 g/dL (6.6-8.7)
[2019-12-11] MEDS: insulin glargine 100 units/1 mL 20 UNIT SUBCUT (06:05)
[2019-12-11 06:08] LABS: Procalcitonin 0.04 ng/mL (0-0.5)
[2019-12-11 06:23] LABS: Glucose Point of Care 177 mg/dL (70-110)
[2019-12-11] MEDS: azithromycin 250 mg Tablet PO (08:22)
[2019-12-11] MEDS: ferrous gluconate 324 mg Tablet PO (08:22)
[2019-12-11] MEDS: thiamine 100 mg Tablet PO (08:22)
[2019-12-11] MEDS: lisinopril 10 mg Tablet PO (08:22)
[2019-12-11] MEDS: ascorbic acid 500 mg Tablet PO (08:22)
[2019-12-11] MEDS: loratadine 10 mg Tablet PO (08:22)
[2019-12-11] MEDS: fluticasone nasal spray 16gm Btl 1 SPRAY NASAL (08:23)
[2019-12-11] MEDS: nicotine 21 mg Patch 1 PATCH TRANSDERMA (08:24)
[2019-12-11 10:53] LABS: Glucose Point of Care 222 mg/dL (70-110)
--- NOTE | 2019-12-11 12:06 | PM.DCS ---
Discharge Providers Date of Admission: 12/05/19 17:48 Date of Discharge: December 11, 2019 Attending Provider at Admission: Ezio Pop MD Attending Provider at Discharge: Alberto Macedo MD Diagnoses at Discharge Discharge Diagnosis (1) Acute exacerbation of chronic obstructive airways disease: Status: Acute (2) Acute on chronic respiratory failure with hypoxia and hypercapnia: Status: Acute (3) Pneumonitis: Status: Acute (4) Type 2 diabetes mellitus: Status: Acute Qualifiers: Diabetes mellitus assisted insulin use: without home health nurse use Diabetes mellitus complication status: with other specified complication Qualified Code(s): E11.69 - Type 2 diabetes mellitus with other specified complication Reason for Visit Reason for Visit: sob Hospital Course Discharge Summary: This is a 59-year-old male who with a past medical history of COPD, [id number] type 2 diabetes mellitus, who presents to [facility] due to complaints of shortness of breath Patient was admitted for acute hypoxic respiratory failure secondary to COPD, admitted to the cardiac stepdown unit, received oxygen therapy, steroid therapy, nebulizer therapy, monitored respiratory status was monitored. Patient had COVID-19 testing, rapid and RT-PCR came back negative. Patient also had a viral panel ordered, which is pending on discharge. As patient had a slow clinical progress throughout his hospital admission, he had repeat imaging modalities, CT angiogram of the chest showed no pulmonary embolism, but did show centrilobular emphysema. Repeat CT chest a few days later, showed minimal subsegmental atelectasis left lung base, no pneumonia, no new infiltrates. Additionally patient had an echocardiogram which showed an ejection fraction of 60%, no regional wall motion abnormalities. Furthermore, pulmonary was consulted to help in the management, patient was conservatively managed with nebulizer treatments, increased doses of steroids, oxygen therapy, and clinically monitored. Patient's condition did gradually improve, he became less short of breath with exertion, wheezing became minimal, oxygen requirements decreased. On 10th day of admission, patient was quite adamant about going home, he had clinically improved, I advised that he might benefit another 24 hours of admission, advised of the risks, advised risk and morbidity mortality associated, voiced understanding, all questions answered, accepted these, still want to go home. On day of discharge, patient was doing well, lungs did have minimal endexpiratory wheezing, with exertion he was able to walk the cardiac stepdown unit hallway, did have to stop once because he was slightly short of breath, but overall did well. His oxygen requirements are 3 L at rest, 4 L with exertion. Patient will be discharged on a prolonged steroid taper. Advair, albuterol, nebulizer treatment therapy. Patient was advised to socially isolate, social distance, mask wearing. Patient was advised to quit smoking. Patient was advised that his respiratory viral culture was still pending on discharge, for which she should follow-up with pulmonary as outpatient. Patient pulmonary will see him in 1 to 2 weeks. Patient was advised that for the have worsening shortness of breath please come back to the emergency room. For his type 2 diabetes mellitus, as patient was on high-dose of steroids, his insulin resistance has increased, he required insulin throughout his hospital admission. Patient was discharged on glargine 20 units in the morning, with a high-dose insulin sliding scale with meals. Patient was advised that his insulin requirements might decrease as his steroid dose will gradually be decreased. This might increase the risk of hypoglycemia. Patient was advised that hypoglycemia is associated with significant morbidity and mortality, and he should monitor his blood sugars carefully. Patient was advised to monitor blood sugars 3 times daily, if blood sugar greater than 500 call primary care, if blood sugar less than 60 drink or juice or eat a hard candy and call primary care. Patient was advised to record blood sugar and follow-up with primary care in 1 week. Physical Exam Const: COMMON NORMALS: no acute distress and patient oriented x3 HENMT: COMMON NORMALS: normocephalic HEAD & SCALP: normocephalic Neck/C-Spine: COMMON NORMALS: no JVD Resp: COMMON NORMALS: normal respiratory effort, No retractions and No use of accessory muscles AUSCULTATION: wheezes expiratory wheezes Cardio: COMMON NORMALS: no JVD, regular rate, regular rhythm, S1 normal heart sound present and S2 normal heart sound present RATE: regular rate RHYTHM: regular rhythm HEART SOUNDS: S1 normal heart sound present and S2 normal heart sound present GI: COMMON NORMALS: Normal to inspection, nondistended, normoactive bowel sounds present, Soft to palpation, non-tender, No hepatosplenomegaly present, no masses and no bruits PALPATION: Yes Soft to palpation and Yes No hepatosplenomegaly present Extremity: COMMON NORMALS: capillary refill normal, no clubbing, cyanosis or edema, no calf tenderness and no pedal edema Neuro: COMMON NORMALS: patient oriented x3 Psych: COMMON NORMALS: mental status grossly normal Discharge Data Data Completed and Pending: Completed Studies During Hospitalization Category Date Time Status CT angio chest PE protcl [id number] Urge nt Cat Scan 12/04/19 18:[address] chest wo con 7 1250 Urgent Cat Scan 12/06/19 09:05 Completed XR chest 1V suzanne ble [id number] QAM Exams 12/05/19 06:00 Completed XR chest 1V suzanne ble [id number] QAM Exams 12/09/19 06:00 Completed XR chest 1V suzanne ble [id number] Stat Exams 12/04/19 13:14 Completed CV echo complete* [id number] Routine Ultrasound 12/06/19 07:00 Completed Pending at discharge Category Date Time Status Complete Blood Co unt w/Auto AM LABS Lab 12/12/19 04:00 Ordered Comprehensive Met abolic Panel AM LA BS Lab 12/12/19 04:00 Ordered Magnesium AM LABS Lab 12/12/19 04:00 Ordered Miscellaneous Lashay t Routine Lab 12/06/19 11:30 Received Phosphorus AM LAB S Lab 12/12/19 04:00 Ordered Procalcitonin AM LABS Lab 12/12/19 04:00 Ordered Respiratory Viral Panel PCR Routine Lab 12/07/19 11:55 Received Labs from last 24 hours 12/11/19 12/11/19 12/11/19 10:48 06:04 04:11 WBC RBC Hgb Hct MCV MCH MCHC RDW Plt Count MPV Neut % (Auto) Lymph % (Auto) [place] % (Auto) Eos % (Auto) Baso % (Auto) Neut # (Auto) Lymph # (Auto) [place] # (Auto) Eos # (Auto) Baso # (Auto) Nucleated RBC % (a uto) Nucleated RBCs # Sodium Potassium Chloride Carbon Dioxide Anion Gap BUN Creatinine GFR Calculation Glucose POC Glucose 222 177 Calculated Osmolal ity Calcium Phosphorus Magnesium Total Bilirubin AST ALT Alkaline Phosphata se Total Protein Albumin Globulin Procalcitonin 0.04 12/11/19 12/11/19 12/10/19 04:11 04:11 20:19 WBC 13.7 H RBC 5.23 Hgb 16.3 Hct 50.3 MCV 96.2 H MCH 31.2 MCHC 32.4 RDW 12.6 Plt Count 221 MPV 11.1 H Neut % (Auto) 86.7 Lymph % (Auto) 6.7 [place] % (Auto) 4.3 Eos % (Auto) 0.0 Baso % (Auto) 0.3 Neut # (Auto) 11.87 H Lymph # (Auto) 0.9 [place] # (Auto) 0.6 Eos # (Auto) 0.0 Baso # (Auto) 0.0 Nucleated RBC % (a uto) 0 Nucleated RBCs # 0.0 Sodium 136 Potassium 5.2 H Chloride 97 L Carbon Dioxide 36 H Anion Gap 8.2 BUN 24 H Creatinine 0.9 GFR Calculation 85.8 L Glucose 219 H POC Glucose 394 Calculated Osmolal ity 285 Calcium 8.2 L Phosphorus 4.3 Magnesium 2.2 Total Bilirubin 0.3 AST 13 ALT 28 Alkaline Phosphata se 41 Total Protein 5.5 L Albumin 3.1 L Globulin 2.4 Procalcitonin 12/10/19 15:59 WBC RBC Hgb Hct MCV MCH MCHC RDW Plt Count MPV Neut % (Auto) Lymph % (Auto) [place] % (Auto) Eos % (Auto) Baso % (Auto) Neut # (Auto) Lymph # (Auto) [place] # (Auto) Eos # (Auto) Baso # (Auto) Nucleated RBC % (a uto) Nucleated RBCs # Sodium Potassium Chloride Carbon Dioxide Anion Gap BUN Creatinine GFR Calculation Glucose POC Glucose 240 Calculated Osmolal ity Calcium Phosphorus Magnesium Total Bilirubin AST ALT Alkaline Phosphata se Total Protein Albumin Globulin Procalcitonin Vitals: Last Vital Signs Temp 98.2 F 12/11/19 08:00 Pulse 93 12/11/19 11:29 Resp 18 12/11/19 11:29 BP 113/69 12/11/19 08:00 Pulse Ox 92 12/11/19 11:29 Discharge Plan Discharge Patient Disposition: Home Condition: Stable Prescriptions: New albuterol sulfate 90 mcg/actuation HFA aerosol inhaler 2 inh INHALATION Q4H PRN (Reason: shortness of breath or wheezing) 30 Days Qty: 18 RF: 0 benzonatate 100 mg Capsule 100 mg PO TID PRN (Reason: Cough) 15 Days Qty: 30 RF: 0 lisinopril 10 mg Tablet 10 mg PO DAILY 30 Days Qty: 30 RF: 0 loratadine 10 mg Tablet 10 mg PO DAILY PRN (Reason: allergy symptoms) 30 Days Qty: 30 RF: 0 nicotine 21 mg/24 hr Patch 24 Hour 1 patch transdermal DAILY 28 Days Qty: 28 RF: 0 ferrous gluconate 324 mg (37.5 mg iron) Tablet 324 mg PO BIDWM 30 Days Qty: 60 RF: 0 insulin glargine 100 unit/mL (3 mL) insulin pen 20 unit SUBCUT QAM Qty: 15 RF: 0 insulin aspart U-100 100 unit/mL (3 mL) insulin pen See Rx Instructions .ROUTE .COMPLEX Qty: 15 RF: 0 ipratropium-albuterol 0.5 mg-3 mg(2.5 mg base)/3 mL solution for nebulization 3 ml INHALATION Q4H PRN (Reason: shortness of breath or wheezing) 30 Days Qty: 90 RF: 0 Advair Diskus 250-50 mcg/dose blister with device 1 inh INHALATION BID Qty: 60 RF: 0 pantoprazole [Protonix] 40 mg tablet,delayed release (DR/EC) 40 mg PO DAILY 30 Days Qty: 30 RF: 0 prednisone 10 mg tablet See Rx Instructions .ROUTE .COMPLEX Qty: 86 RF: 0 Continued metformin 1,000 mg Tablet 1,000 mg PO BID RF: 0 Discharge Orders: Discharge Order (Routine); Ordered 12/11/19 Ordered By: Alberto Macedo Other Ambulatory Orders: DME: Oxygen (Order) Location: None Selected Ordered By: Alberto Macedo [place] [facility] [place] [place] [facility] [place] Datar,Kamari Calhoun MD [Physician] - 1 week Discharge Diet: Usual diet Discharge Activity: Increase activity as tolerated Patient Instructions: Insulin Aspart Protamine/Insulin Aspart (Injection), Insulin Glargine (Injection), Hypoglycemia, Sleep Apnea Syndrome (DC), Sleep Apnea Syndrome (GEN), How to Stop Smoking (DC), Cigarette Smoking and Your Health (GEN), Diabetes Mellitus Type 2 in Adults (GEN), What is Insulin (DC), Giving an Insulin Injection (DC), Giving an Insulin Injection (GEN), Using Oxygen at Home (DC), Using Oxygen at Home (GEN), Chronic Obstructive Pulmonary Disease (DC), Pen Devices for Insulin Administration (DC) Activity Restrictions/Additional Instructions: -Please stop smoking -Please takes prolonged steroid taper as prescribed -Please use nebulizers every 4 hours as needed for shortness of breath -Please hand wash, face mask, social distancing -If you have worsening shortness of breath, cough please come back to the emergency room -You have been discharged on 3 L oxygen at rest, 4 L with exertion -For your type 2 diabetes, you require insulin now as steroids have increased insulin resistance -Inject Lantus 20 units in the morning -Inject aspart sliding scale, sliding scale provided, only inject aspart with meals, and if you eat something -Of note hypoglycemia can result in significant morbidity and mortality, so monitor blood sugars 3 times daily -If blood sugar greater than 500 call primary care -If blood sugar less than 60, drink orange juice or eat a hard candy call primary care -Record blood sugars 3 times daily, bring blood sugar logs to primary care physician's office -I assume that your insulin requirements will decrease as your dose of prednisone decreases -If you develop blood sugars less than 60, please call primary care -Please follow-up with pulmonary in 1 to 2 weeks Discharge Attestations Time Spent in Discharge Care*: less than 30 min Quality Metrics Clinical Quality Measures During this hospital stay, did patient experience: None Coding Level of Care Code 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
--- NOTE | 2019-12-11 17:22 | P.PN_ITS ---
Subjective Subjective: Interval history: Clinically improving. Saturating 88% at room air and requires at least 3 L to maintain saturation above 90% room air on 4 L on exertion. Vitals/I&O/Wt Last Vital Signs Temp 97.8 F 12/11/19 13:58 Pulse 68 12/11/19 13:58 Resp 16 12/11/19 13:58 BP 112/74 12/11/19 13:58 Pulse Ox 96 12/11/19 13:58 12/11/19 12/11/19 12/11/19 06:59 14:59 22:59 Intake Total 240 / 1120 600 / 600 Balance 240 / 1120 600 / 600 Weight last 48 hrs Weight 268 lb 8 oz Weight 268 lb 7 oz Physical Exam Narrative: EXAM NARRATIVE: General: alert, in mild respiratory distress, on 3 L nasal cannula, sitting in bed HEENT: conj clear, EOMI, PERRL, mmm, Neck: supple, no meningismus Heme: no cervical LAP Pulmonary: Clear bilaterally today Cardiovascular: rrr, nl s1s2, no mrg Abdomen: soft, nt, nd, no r/g, bs+ Extremities: pulses +, no edema, no c/c : no CVA tenderness Skin: intact, no rash MSK: no back or neck pain Neurologic: grossly intact Data : 12/11/19 04:11 12/11/19 04:11 A&P Assessment and plan (1) Acute exacerbation of chronic obstructive airways disease: Status: Acute (2) Acute on chronic respiratory failure with hypoxia and hypercapnia: Status: Acute (3) Pneumonitis: Status: Acute (4) Type 2 diabetes mellitus: Status: Acute Qualifiers: Diabetes mellitus snf insulin use: without lobsterman use Diabetes mellitus complication status: with other specified complication Qualified Code(s): E11.69 - Type 2 diabetes mellitus with other specified complication #Acute on chronic respiratory failure with hypoxia and hypercapnia likely due to COPD exacerbation #Likely chronic CO2 retainer in view of COPD and KASSIDY #Sinus and nasal congestion -CT suggestive of emphysema and with inspiratory wheezing on examination with significant history of smoking suggestive of COPD exacerbation -Normal WBC (today 13 K could be due to steroids), no fevers, cultures negative so far, negative MRSA, no infiltrates on imaging rule out active pneumonic process (bacterial or fungal). No need for bronchoscopy now. -Required 3 L at rest 4 L on exertion to keep saturation above 90%; reported improvement in his symptoms - recommended BiPAP as tolerated 10/5 and target TV 380 -Continue DuoNeb nebulizations every 4 hours, Solu-Medrol 40 every 8 and taper based on clinical response -Azithromycin to cover atypical infection -Respiratory viral panel still pending -Negative CTPA and normal d-dimer essentially rules out PE/DVT -Normal inflammatory markers except elevated ferritin with normal CT chest and COVID testing thrice ruled out COVID 19 pneumonia -Seems like Baseline CO2 will be slightly higher than 40; - on Flonase twice daily and Claritin 10 mg daily to help with upper airway congestion -Echo 12/06/2019: EF 60% with no wall motion abnormalities but overall technically difficult study to draw conclusions; clinically does not look in CHF exacerbation -Patient seems to be clinically stable respiratory symptom [place] with slow progress for his COPD exacerbation -If primary team decides to discharge home-please send with DuoNeb nebulization at least every 6 hours, tapering doses of oral steroids over 10 days, home oxygen 4 L and give pulmonary clinic appointment in 1 week. #KASSIDY on CPAP-noncompliant recommended BiPAP as tolerated 10/5 and target TV 380 Sleep study as outpatient and possible re-titration Medical condition, labs, investigations, medications, counseling regarding medication compliance, side effects, importance of follow-up appointments, smoking-its adverse effects and importance of cessation and plan of care- everything explained in detail to the patient. Patient verbalized understanding and agreed with the plan of care. Recommendations conveyed to hospitalist Thanks for the consult Attestations Medical Necessity Statement*: COPD exacerbation with hypoxia Coding Level of Care Code Established Pt Acute [employer] [facility] Fwd Patient Type Established History Expanded Problem Focused Exam Expanded Problem Focused Medical Decision Making Straight Forward Diagnoses Acute exacerbation of chronic obstructive airways disease J44.1 Acute on chronic respiratory failure with hypoxia and hypercapnia J96.21; J96.22 Pneumonitis J18.9 Type 2 diabetes mellitus E11.69 Diabetes mellitus snf insulin use: without lobsterman use Diabetes mellitus complication status: with other specified complication Time Spent (min) 20
== END 2019-12-11 15:15 | disposition home or self-care (01) | DRG 189 ==
LOC: ER 16:04 → CSU 18:21
PROVIDERS: Family Medicine; Admitting Provider Student in an Organized Health Care Education/Training Program; Visit Provider Family Medicine
DX: J96.21 Acute and chronic respiratory failure with hypoxia (principal); J98.11 Atelectasis; J43.2 Centrilobular emphysema; J96.22 Acute and chronic respiratory failure with hypercapnia; E11.69 Type 2 diabetes mellitus with other specified complication; Z20.828 Contact with and (suspected) exposure to other viral communicable diseases; F17.210 Nicotine dependence, cigarettes, uncomplicated; Z79.52 Long term (current) use of systemic steroids; Z79.84 Long term (current) use of oral hypoglycemic drugs; D50.9 Iron deficiency anemia, unspecified; G47.33 Obstructive sleep apnea (adult) (pediatric); Z91.19 Patient's noncompliance with other medical treatment and regimen
CPT/HCPCS: 12345; 36415; 36416; 36600; 71045; 71250; 71275; 80051; 80053; 80061; 82550; 82728; 82810; 82962; 83036; 83540; 83550; 83605; 83615; 83735; 83880; 83986; 84100; 84145; 84443; 84484; 85025; 85378; 85384; 85651; 86140; 86403; 87040; 87070; 87205; 87420; 87426; 87449; 87496; 87635; 87641; 87806; 93005; 93010; 93306; 94640; 94660; 94664; 96372; 96375; 99283; G0378; J1100; J1650; J1815 ×2; J2270; J2920; J3535; J7626; Q0144; Q9967

== ENCOUNTER 2021-01-20 10:17 | Inpatient (IN) | payer OTHER, SELFPAY ==
[2021-01-20] VITALS (19 sets, daily range): BP systolic 82–109; BP diastolic 51–66; PULSE 82–129; RESP 13–29; TEMP 37.2–37.3; O2SAT 91–96; BMI 37.5
--- NOTE | 2021-01-20 10:40 | ECG_ITS ---
[facility] Test Date: 2021-01-20 Pat Name: Clayton Rodriguez Department: Room: Gender: Male Director Drug: : 1960 Requested By: Romel Gutierrez Order Number: [id number] Zackary MD: Elsa Styles M.D. Measurements Intervals [place] Rate: 122 P: 59 SC: 151 QRS: 11 QRSD: 80 T: 67 QT: 281 QTc: 401 Interpretive Statements SINUS TACHYCARDIA ABNORMAL RHYTHM ECG INTERPRETATION BASED ON A DEFAULT AGE OF 40 YEARS Compared to ECG 12/05/2019 01:06:46 Sinus rhythm no longer present Electronically Signed On 01-20-2021 23:31:30 CDT by Elsa Styles M.D. [email or web address]
--- NOTE | 2021-01-20 10:40 | XR_ITS ---
WS: [id number] Portable AP upright chest, 01/20/2021 Clinical Data: SOB Comparison: Portable chest, 12/09/2019. Findings: There is patchy opacity in the right lower lobe and less opacity in left lower lobe consist ent with bilateral pneumonia. The upper lobes are clear. The heart size is normal. The pulmonary vasc ularity is not remarkable. Monitor leads are on the chest wall. XR/XR chest 1V portable [id number] Impression: Patchy pulmonary opacities in both lower lobes, more on the right than the left , consistent with pneumonia.
--- NOTE | 2021-01-20 10:43 | ED_ITS ---
Documented by User: GERTRUDE Powell 01/21/21 07:36 HPI - SOB/Dyspnea General: Chief Complaint: Shortness of Breath/Dyspnea Stated Complaint: DIFF BREATHING:SENT BY FEMI Time Seen by Provider: 01/20/21 10:26 History of Present Illness: HPI Narrative: Patient is a 60-year-old male comes to the ED with shortness of breath. Patient has a history of COPD, hypertension, KASSIDY and type 2 diabetes. Patient says symptoms started yesterday morning when he woke up. He has oxygen and inhalers at home, but does not use them. When he started having some shortness of breath yesterday he started using his and home oxygen. He states that he has not had to use oxygen at home in over a year. He reports coughing up some greenish sputum. He also reports some red streaks in sputum as well. He reports having a temperature of 102 degrees last night. He has been able to drink and keep fluids down but says he does not have much of an appetite but denies any nausea or vomiting, abdominal pain, bladder or bowel symptoms. Patient has received the Covid 19 vaccine. He was around his son who had COVID-19 approximately 4 weeks ago, but that is his closest known COVID-19 contact. Associated symptoms: Reports fever(s) and hemoptysis; Deny abdominal pain, chest pain, nausea, orthopnea, palpitations or vomiting Review of Systems Const: Reports: fever(s); Denies: chills or fatigue Eyes: Denies: change in vision or eye discomfort ENMT: Denies: throat pain, odynophagia, nasal discharge or nasal congestion Card: Denies: chest pain, palpitations, edema, swelling of feet/ankles, dyspnea on exertion or orthopnea Resp: Reports: dyspnea, productive cough, change in phlegm color (Yellow-green sputum) and hemoptysis; Denies: non-productive cough GI: Denies: abdominal pain, nausea, vomiting, diarrhea, constipation or hematochezia : Denies: flank pain, difficulty urinating, dysuria or hematuria Musc: Denies: neck pain, back pain or extremity swelling Skin/Breast: Denies: rash or new lesions Neuro: Denies: headache(s), numbness in extremities or weakness in extremities COUNT INCLUDES THE [facility] ED PFSH: Medical History (Updated 01/21/21 @ 17:05 by Brent Decker MD) Acute exacerbation of chronic obstructive airways disease COPD (chronic obstructive pulmonary disease) Multiple renal calculi Nephrolithiasis Obesity KASSIDY and COPD overlap syndrome Smoker Type 2 diabetes mellitus Social History Smoking and tobacco status: former smoker Quit status (tobacco): has quit using tobacco Year quit tobacco: 2020 - 1PPD x 40 Days Second hand smoke exposure: No Smoking risk assessment/counseling performed?: Yes Alcohol intake: never Lives independently: Yes Household members: spouse Marital status: service: No Current occupational status: employed 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 Current occupational exposures/hazards: No Pets and animals: Yes History of recent travel: No Current gender identity: Male Physical Exam Const: COMMON NORMALS: patient oriented x3 and alert GENERAL APPEARANCE: cooperative and in distress (Labored breathing) HENMT: COMMON NORMALS: normocephalic HEAD & SCALP: normocephalic MOUTH: Normal oral and palatal mucosa present THROAT: posterior oropharynx normal and uvula midline Eye: COMMON NORMALS: Equal, round and reactive pupils present PUPIL: Yes Equal, round and reactive pupils present Neck/C-Spine: COMMON NORMALS: supple GENERAL: Yes normal visual inspection Resp: COMMON NORMALS: normal respiratory effort, No retractions and No use of accessory muscles EFFORT & INSPECTION: Yes able to speak in complete sentences, Yes tachypneic and Yes labored AUSCULTATION: wheezes expiratory wheezes and throughout and diminished lung sounds diffuse Cardio: COMMON NORMALS: regular rhythm, S1 normal heart sound present, S2 normal heart sound present, No gallops present (Cardio), No clicks present (Cardio), No murmurs present (Cardio) and Peripheral pulses 2+ throughout RATE: tachycardic RHYTHM: regular rhythm HEART SOUNDS: S1 normal heart sound present and S2 normal heart sound present PERIPHERAL PULSES: Peripheral pulses 2+ throughout GI: COMMON NORMALS: Normal to inspection, nondistended, normoactive bowel sounds present, Soft to palpation, non-tender and no masses PALPATION: Yes Soft to palpation : COMMON NORMALS: Yes no CVA tenderness BLADDER/KIDNEY EXAM: Yes no CVA tenderness Back/Pelvis: COMMON NORMALS: no CVA tenderness Extremity: COMMON NORMALS: normal to inspection Neuro: COMMON NORMALS: patient oriented x3 and moves all extremities SENSORIUM/ORIENTATION: Yes alert Skin: GENERAL SKIN EXAM: dry skin Course Vital Signs: Vital signs: Vital Signs Temperature 97.5 F L 01/22/21 08:00 Pulse Rate 64 01/22/21 11:42 Respiratory Rate 18 01/22/21 11:33 Blood Pressure 104/66 01/22/21 08:00 Pulse Oximetry 98 01/22/21 11:33 MDM - SOB/Dyspnea MDM Narrative: Medical decision making narrative: Patient is a 60-year-old male comes to the ED with shortness of breath. Symptoms started approximately 24 hours ago. Patient has a medical history of COPD, hypertension, KASSIDY and type 2 diabetes. He is vaccinated for COVID-19. He is not on any oxygen at home. Vitals upon arrival to the ED, blood pressure 109/51, pulse 129, respirations 23, temp 99.1 and O2 saturation 93% on 6 L via nasal cannula. Patient's respirations appear labored and he had diminished lung sounds throughout along with some wheezing. I performed the initial history physical exam and lab labs/imaging work-up of patient. Patient's lactic acid level was 8.2. Due to patient's acuity I discussed patient case with Dr. Ott and transferred over patient care to him. Lab Data: Labs: Lab Results 01/20/21 01/20/21 01/20/21 10:40 10:40 10:40 WBC 15.3 10^3/uL H 10 ^3/uL (4.0-10.0) RBC 5.70 10^6/uL H 10 ^6/uL (4.1-5.3) Hgb 17.7 g/dL H g/dL (11.7-16.6) Hct 53.4 % H % (42.0-52.0) MCV 93.7 fl fl (80-94) MCH 31.1 pg pg (28.0-34.0) MCHC 33.1 g/dL g/dL (30.0-36.0) RDW 12.7 % % (12.1-15.1) Plt Count 172 10^3/cmm 10^3 /cmm (130-400) MPV 11.3 fL H fL (7.4-10.4) Lymph % (Auto) Not Reportable [place] % (Auto) Not Reportable Lymph # (Auto) Not Reportable [place] # (Auto) Not Reportable Total Counted 100 (0-100) Atypical Lymphs % 1.0 % % (0-5) Absolute Neutrophi ls 14.1 10^3/cmm H 1 0^3/cmm (1.4-6.5) Segmented Neutroph ils 48 % % Abs Segm Neuts (Ma n) 7.3 10/cmm H 10/c mm (1.6-7.1) Band Neutrophils 44.0 % % Abs Band Neuts (Ma n) 6.7 10^3/cmm H 10 ^3/cmm (0.0-1.2) Absolute Lymphocyt es 1.1 10^3/cmm L 10 ^3/cmm (1.2-3.4) Lymphocytes (Manua l) 6 % % Monocytes (Manual) Not Reportable Eosinophils (Manua l) Not Reportable Basophils (Manual) Not Reportable Metamyelocytes 1.0 % % Platelet Estimate Normal (Normal) Giant Platelets Trace D-Dimer 0.54 ug/mIFEU ug/ mIFEU (0-0.59) Specimen Type Sample Site ABG pH ABG pCO2 ABG pO2 ABG HCO3 ABG O2 Saturation ABG Base Excess Trung Test A-a O2 Gradient Hematocrit Hgb O2 Saturation Carboxyhemoglobin Methemoglobin Total Hemoglobin Ionized Calcium O2 Delivery Device O2 Liters/Min FiO2 Project Management Director ID Sodium 128 mmol/L L mmol /L (136-145) Potassium 4.5 mmol/L mmol/L (3.5-5.1) Chloride 88 mmol/L L mmol/ L (98-107) Carbon Dioxide 19 mmol/L L mmol/ L (22-29) Anion Gap 25.5 H (5-19) BUN 25 mg/dL H mg/dL (8-23) Creatinine 1.4 mg/dL H mg/dL (0.7-1.2) GFR Calculation 51.4 mL/min L mL/ min (90-130) Glucose 321 mg/dL H mg/dL (65-115) Calculated Osmolal ity 283 mOsm/kg L mOs m/kg (285-295) Lactic Acid Lactate Calcium 8.3 mg/dL L mg/dL (8.5-10.5) Total Bilirubin 1.1 mg/dL mg/dL (0.15-1.2) AST 12 U/L U/L (0-40) ALT 13 U/L U/L (0-41) Alkaline Phosphata se 50 IU/L IU/L (40-130) Troponin T Baselin e C-Reactive Protein NT-Pro-B Natriuret Pep 1142 pg/mL H pg/m L (0-125) Total Protein 5.5 g/dL L g/dL (6.6-8.7) Albumin 3.4 g/dL L g/dL (3.5-5.2) Globulin 2.1 g/dL g/dL (1.3-4.6) Procalcitonin 14.16 ng/mL H ng/ mL (0-0.5) SARS-CoV-2 Ag (Rap id) 01/20/21 01/20/21 01/20/21 10:40 10:40 10:40 WBC RBC Hgb Hct MCV MCH MCHC RDW Plt Count MPV Lymph % (Auto) [place] % (Auto) Lymph # (Auto) [place] # (Auto) Total Counted Atypical Lymphs % Absolute Neutrophi ls Segmented Neutroph ils Abs Segm Neuts (Ma n) Band Neutrophils Abs Band Neuts (Ma n) Absolute Lymphocyt es Lymphocytes (Manua l) Monocytes (Manual) Eosinophils (Manua l) Basophils (Manual) Metamyelocytes Platelet Estimate Giant Platelets D-Dimer Specimen Type Sample Site ABG pH ABG pCO2 ABG pO2 ABG HCO3 ABG O2 Saturation ABG Base Excess Trung Test A-a O2 Gradient Hematocrit Hgb O2 Saturation Carboxyhemoglobin Methemoglobin Total Hemoglobin Ionized Calcium O2 Delivery Device O2 Liters/Min FiO2 Project Management Director ID Sodium Potassium Chloride Carbon Dioxide Anion Gap BUN Creatinine GFR Calculation Glucose Calculated Osmolal ity Lactic Acid 8.2 mmol/L H* mmo l/L (0.5-2.2) Lactate Calcium Total Bilirubin AST ALT Alkaline Phosphata se Troponin T Baselin e 14 ng/L ng/L (0-15) C-Reactive Protein 310.5 mg/L H mg/L (0.0-4.9) NT-Pro-B Natriuret Pep Total Protein Albumin Globulin Procalcitonin SARS-CoV-2 Ag (Rap id) 01/20/21 01/20/21 01/20/21 10:42 11:44 14:18 WBC RBC Hgb Hct MCV MCH MCHC RDW Plt Count MPV Lymph % (Auto) [place] % (Auto) Lymph # (Auto) [place] # (Auto) Total Counted Atypical Lymphs % Absolute Neutrophi ls Segmented Neutroph ils Abs Segm Neuts (Ma n) Band Neutrophils Abs Band Neuts (Ma n) Absolute Lymphocyt es Lymphocytes (Manua l) Monocytes (Manual) Eosinophils (Manua l) Basophils (Manual) Metamyelocytes Platelet Estimate Giant Platelets D-Dimer Specimen Type Arterial Sample Site Radial, right ABG pH 7.38 (7.35-7.45) ABG pCO2 33.5 mmHg L mmHg (35-45) ABG pO2 71.3 mmHg L mmHg (80.0-100.0) ABG HCO3 20.0 mmol/L L mmo l/L (22-26) ABG O2 Saturation 95.9 ABG Base Excess -4.1 mmol/L L mmo l/L (-2.0-2.0) Trung Test Pos A-a O2 Gradient 26.3 mmHg H mmHg (5-10) Hematocrit 52.2 % H % (42-52) Hgb O2 Saturation 93.4 % L % (95-100) Carboxyhemoglobin 1.9 %THgb %THgb (0.4-20.1) Methemoglobin 0.8 % % (0.4-1.5) Total Hemoglobin 17.0 g/dL g/dL (14-18) Ionized Calcium 1.1 mmol/L mmol/L (1.1-1.4) O2 Delivery Device Nc O2 Liters/Min 6.0 % % FiO2 44.0 % % Project Management Director ID Amh Sodium 129.0 mmol/L L mm ol/L (131-143) Potassium 4.7 mmol/L mmol/L (3.5-5.0) Chloride Carbon Dioxide Anion Gap BUN Creatinine GFR Calculation Glucose 317.0 mg/dL H mg/ dL (70-115) Calculated Osmolal ity Lactic Acid Lactate 5.0 mmol/L H* mmo l/L (0.5-2.2) Calcium Total Bilirubin AST ALT Alkaline Phosphata se Troponin T Baselin e C-Reactive Protein NT-Pro-B Natriuret Pep Total Protein Albumin Globulin Procalcitonin SARS-CoV-2 Ag (Rap id) Negative (Negative) Imaging Data^: CXR: Attestation: I personally reviewed and interpreted this imaging study as follows: Radiologist's impression: [facility] HospitalWqy[facility]we[address].[place], [place] [address]DHwr ReportSigned Patient: Clayton Rodriguez #: [id number]: [id number]#:[id number]/Sex: 60 / MADM Date: 01/20/21Loc: ERRoom/Bed:Attending Dr: Ordering Provider/Ordering MD: Romel Gutierrez Date of Service: 01/20/21 Procedure(s): XR chest 1V portable [id number] Accession Number(s): [id number] Report Number: [id number] WS: [id number] Portable AP upright chest, 01/20/2021 Clinical Data: SOB Comparison: Portable chest, 12/09/2019. Findings: There is patchy opacity in the right lower lobe and less opacity in left lower lobe consistent with bilateral pneumonia. The upper lobes are clear. The heart size is normal. The pulmonary vascularity is not remarkable. Monitor leads are on the chest wall. XR/XR chest 1V portable [id number] Impression: Patchy pulmonary opacities in both lower lobes, more on the right than the left, consistent with pneumonia. Dictated By:Leigh Ann Infante MDSigned By:Leigh Ann Infante MDSigned Date/Time:01/20/21 1216DD/ 1214 EKG Data^: EKG 1: Attestation: I personally reviewed and interpreted this EKG as follows: EKG Interpretation Date: 01/20/21 Interpretation: Sinus tachycardia, 122 bpm, no ST segment elevation or depres willian seen. Discharge Plan Discharge Patient Disposition: Admitted As Inpatient Admit Provider: Brent Decker Sign Out Sign Out Data: Patient Sign Out occurred on 01/20/21 at 11:20. Patient's care was discussed, and care was transferred from to Frank Ott MD. Coding Level of Care Code ED Student Finance Specialist for Chg Fwd Exam Comprehensive Documented by User: Frank Ott MD 01/22/21 12:28 HPI - SOB/Dyspnea General: Chief Complaint: Shortness of Breath/Dyspnea Stated Complaint: DIFF BREATHING:SENT BY KAHN Time Seen by Provider: 01/20/21 10:26 PFSH ED PFSH: Medical History (Updated 01/21/21 @ 17:05 by Brent Decker MD) Acute exacerbation of chronic obstructive airways disease COPD (chronic obstructive pulmonary disease) Multiple renal calculi Nephrolithiasis Obesity KASSIDY and COPD overlap syndrome Smoker Type 2 diabetes mellitus Social History Smoking and tobacco status: former smoker Quit status (tobacco): has quit using tobacco Year quit tobacco: 2020 - 1PPD x 40 Days Second hand smoke exposure: No Smoking risk assessment/counseling performed?: Yes Alcohol intake: never Lives independently: Yes Household members: spouse Marital status: service: No Current occupational status: employed 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 I personally performed HPI, review of systems, physical data and formulated plan of care for this patient. I agree with the above documentation. Labs and imaging were interpreted by me. In short, 60-year-old gentleman presenting with severe sepsis secondary to pneumonia. 30 cc/kg ideal body weight from bolus and antibiotics ordered. Patient required close reevaluation due to increased respiratory effort and due to continued respiratory distress BiPAP ordered. While wearing BiPAP patient's respiratory effort improved but he did have some discomfort with the mask causing intermittent use. Repeat lactate improved after fluids though still elevated. Blood pressure borderline. hospitalist contacted and agreed to admit the patient. Patient overall improved but still remained critically ill. Lab Data: Labs: Lab Results 01/20/21 01/20/21 01/20/21 10:40 10:40 10:40 WBC 15.3 10^3/uL H 10 ^3/uL (4.0-10.0) RBC 5.70 10^6/uL H 10 ^6/uL (4.1-5.3) Hgb 17.7 g/dL H g/dL (11.7-16.6) Hct 53.4 % H % (42.0-52.0) MCV 93.7 fl fl (80-94) MCH 31.1 pg pg (28.0-34.0) MCHC 33.1 g/dL g/dL (30.0-36.0) RDW 12.7 % % (12.1-15.1) Plt Count 172 10^3/cmm 10^3 /cmm (130-400) MPV 11.3 fL H fL (7.4-10.4) Lymph % (Auto) Not Reportable [place] % (Auto) Not Reportable Lymph # (Auto) Not Reportable [place] # (Auto) Not Reportable Total Counted 100 (0-100) Atypical Lymphs % 1.0 % % (0-5) Absolute Neutrophi ls 14.1 10^3/cmm H 1 0^3/cmm (1.4-6.5) Segmented Neutroph ils 48 % % Abs Segm Neuts (Ma n) 7.3 10/cmm H 10/c mm (1.6-7.1) Band Neutrophils 44.0 % % Abs Band Neuts (Ma n) 6.7 10^3/cmm H 10 ^3/cmm (0.0-1.2) Absolute Lymphocyt es 1.1 10^3/cmm L 10 ^3/cmm (1.2-3.4) Lymphocytes (Manua l) 6 % % Monocytes (Manual) Not Reportable Eosinophils (Manua l) Not Reportable Basophils (Manual) Not Reportable Metamyelocytes 1.0 % % Platelet Estimate Normal (Normal) Giant Platelets Trace D-Dimer 0.54 ug/mIFEU ug/ mIFEU (0-0.59) Specimen Type Sample Site ABG pH ABG pCO2 ABG pO2 ABG HCO3 ABG O2 Saturation ABG Base Excess Trung Test A-a O2 Gradient Hematocrit Hgb O2 Saturation Carboxyhemoglobin Methemoglobin Total Hemoglobin Ionized Calcium O2 Delivery Device O2 Liters/Min FiO2 Project Management Director ID Sodium 128 mmol/L L mmol /L (136-145) Potassium 4.5 mmol/L mmol/L (3.5-5.1) Chloride 88 mmol/L L mmol/ L (98-107) Carbon Dioxide 19 mmol/L L mmol/ L (22-29) Anion Gap 25.5 H (5-19) BUN 25 mg/dL H mg/dL (8-23) Creatinine 1.4 mg/dL H mg/dL (0.7-1.2) GFR Calculation 51.4 mL/min L mL/ min (90-130) Glucose 321 mg/dL H mg/dL (65-115) Calculated Osmolal ity 283 mOsm/kg L mOs m/kg (285-295) Lactic Acid Lactate Calcium 8.3 mg/dL L mg/dL (8.5-10.5) Total Bilirubin 1.1 mg/dL mg/dL (0.15-1.2) AST 12 U/L U/L (0-40) ALT 13 U/L U/L (0-41) Alkaline Phosphata se 50 IU/L IU/L (40-130) Troponin T Baselin e C-Reactive Protein NT-Pro-B Natriuret Pep 1142 pg/mL H pg/m L (0-125) Total Protein 5.5 g/dL L g/dL (6.6-8.7) Albumin 3.4 g/dL L g/dL (3.5-5.2) Globulin 2.1 g/dL g/dL (1.3-4.6) Procalcitonin 14.16 ng/mL H ng/ mL (0-0.5) SARS-CoV-2 Ag (Rap id) 01/20/21 01/20/21 01/20/21 10:40 10:40 10:40 WBC RBC Hgb Hct MCV MCH MCHC RDW Plt Count MPV Lymph % (Auto) [place] % (Auto) Lymph # (Auto) [place] # (Auto) Total Counted Atypical Lymphs % Absolute Neutrophi ls Segmented Neutroph ils Abs Segm Neuts (Ma n) Band Neutrophils Abs Band Neuts (Ma n) Absolute Lymphocyt es Lymphocytes (Manua l) Monocytes (Manual) Eosinophils (Manua l) Basophils (Manual) Metamyelocytes Platelet Estimate Giant Platelets D-Dimer Specimen Type Sample Site ABG pH ABG pCO2 ABG pO2 ABG HCO3 ABG O2 Saturation ABG Base Excess Trung Test A-a O2 Gradient Hematocrit Hgb O2 Saturation Carboxyhemoglobin Methemoglobin Total Hemoglobin Ionized Calcium O2 Delivery Device O2 Liters/Min FiO2 Project Management Director ID Sodium Potassium Chloride Carbon Dioxide Anion Gap BUN Creatinine GFR Calculation Glucose Calculated Osmolal ity Lactic Acid 8.2 mmol/L H* mmo l/L (0.5-2.2) Lactate Calcium Total Bilirubin AST ALT Alkaline Phosphata se Troponin T Baselin e 14 ng/L ng/L (0-15) C-Reactive Protein 310.5 mg/L H mg/L (0.0-4.9) NT-Pro-B Natriuret Pep Total Protein Albumin Globulin Procalcitonin SARS-CoV-2 Ag (Rap id) 01/20/21 01/20/21 01/20/21 10:42 11:44 14:18 WBC RBC Hgb Hct MCV MCH MCHC RDW Plt Count MPV Lymph % (Auto) [place] % (Auto) Lymph # (Auto) [place] # (Auto) Total Counted Atypical Lymphs % Absolute Neutrophi ls Segmented Neutroph ils Abs Segm Neuts (Ma n) Band Neutrophils Abs Band Neuts (Ma n) Absolute Lymphocyt es Lymphocytes (Manua l) Monocytes (Manual) Eosinophils (Manua l) Basophils (Manual) Metamyelocytes Platelet Estimate Giant Platelets D-Dimer Specimen Type Arterial Sample Site Radial, right ABG pH 7.38 (7.35-7.45) ABG pCO2 33.5 mmHg L mmHg (35-45) ABG pO2 71.3 mmHg L mmHg (80.0-100.0) ABG HCO3 20.0 mmol/L L mmo l/L (22-26) ABG O2 Saturation 95.9 ABG Base Excess -4.1 mmol/L L mmo l/L (-2.0-2.0) Trung Test Pos A-a O2 Gradient 26.3 mmHg H mmHg (5-10) Hematocrit 52.2 % H % (42-52) Hgb O2 Saturation 93.4 % L % (95-100) Carboxyhemoglobin 1.9 %THgb %THgb (0.4-20.1) Methemoglobin 0.8 % % (0.4-1.5) Total Hemoglobin 17.0 g/dL g/dL (14-18) Ionized Calcium 1.1 mmol/L mmol/L (1.1-1.4) O2 Delivery Device Nc O2 Liters/Min 6.0 % % FiO2 44.0 % % Project Management Director ID Amh Sodium 129.0 mmol/L L mm ol/L (131-143) Potassium 4.7 mmol/L mmol/L (3.5-5.0) Chloride Carbon Dioxide Anion Gap BUN Creatinine GFR Calculation Glucose 317.0 mg/dL H mg/ dL (70-115) Calculated Osmolal ity Lactic Acid Lactate 5.0 mmol/L H* mmo l/L (0.5-2.2) Calcium Total Bilirubin AST ALT Alkaline Phosphata se Troponin T Baselin e C-Reactive Protein NT-Pro-B Natriuret Pep Total Protein Albumin Globulin Procalcitonin SARS-CoV-2 Ag (Rap id) Negative (Negative) EKG Data^: EKG 1: Attestation: I personally reviewed and interpreted this EKG as follows: EKG Interpretation Date: 01/20/21 EKG interpretation time: 11:01 Interpretation: Twelve-lead EKG shows a regular rhythm at a rate of 122 MS interval 151, QRS duration 80, QTc 354 Normal axis Interpretation: Sinus tachycardia EKG 2: Attestation: I personally reviewed and interpreted this EKG as follows: EKG Interpretation Date: 01/20/21 EKG interpretation time: 13:13 Interpretation: Twelve-lead EKG shows a regular rhythm at a rate of 115 MS interval 124, QRS duration 83, QTc 358 Normal axis Interpretation: Sinus tachycardia EKG 3: Attestation: I personally reviewed and interpreted this EKG as follows: EKG Interpretation Date: 01/20/21 EKG interpretation time: 18:03 Interpretation: 12 lead shows regular rhythm at rate of 96 MS 154, QRS 96, QTc 387 Normal axis Interpretation: sinus rhythm Critical Care Time Critical Care Time: Critical Care Time: Yes Total Critical Care Time: 45 Attestation: This case had a high probability of a clinically significant, sudden, or life threatening deterioration of this patient's condition which required my full and direct attention, intervention and personal management. Discharge Plan Discharge Patient Disposition: Admitted As Inpatient Admit Provider: Brent Decker Sign Out Sign Out Data: Patient Sign Out occurred on 01/20/21 at 11:20. Patient's care was discussed, and care was transferred from to Frank Ott MD. Coding Level of Care Code ED Student Finance Specialist for Chg Fwd Exam Comprehensive
[2021-01-20 10:51] LABS: Hematocrit 53.4 % (42.0-52.0); Hemoglobin 17.7 g/dL (11.7-16.6); Mean Corpuscular HGB Conc 33.1 g/dL (30.0-36.0); Mean Corpuscular Hemoglobin 31.1 pg (28.0-34.0); Mean Corpuscular Volume 93.7 fl (80-94); Mean Platelet Volume 11.3 fL (7.4-10.4); Platelet Count 172 10^3/cmm (130-400); Red Cell Distribution Width 12.7 % (12.1-15.1); White Blood Count 15.3 10^3/uL (4.0-10.0)
[2021-01-20 11:02] LABS: D Dimer 0.54 ug/mIFEU (0-0.59)
[2021-01-20 11:10] LABS: Troponin(5th) Baseline 14 ng/L (0-15)
[2021-01-20 11:13] LABS: Lactic Sepsis W/Reflex 8.2 mmol/L (0.5-2.2)
[2021-01-20 11:19] LABS: NT Pro B Type Natriuretic Pept 1142 pg/mL (0-125); Procalcitonin 14.16 ng/mL (0-0.5)
[2021-01-20] MEDS: dexamethasone 10 mg/mL INJ IVP (11:23)
[2021-01-20 11:30] LABS: Anion Gap 25.5 (5-19); Blood Urea Nitrogen 25 mg/dL (8-23); Carbon Dioxide 19 mmol/L (22-29); Chloride 88 mmol/L (98-107); Potassium 4.5 mmol/L (3.5-5.1); Sodium 128 mmol/L (136-145)
[2021-01-20 11:31] LABS: SARS Covid-2 Antigen Negative (Negative)
[2021-01-20 11:31] LABS: Alanine Aminotransferase 13 U/L (0-41); Albumin Level 3.4 g/dL (3.5-5.2); Alkaline Phosphatase 50 IU/L (40-130); Aspartate Amino Transferase 12 U/L (0-40); Calcium 8.3 mg/dL (8.5-10.5); Globulin 2.1 g/dL (1.3-4.6); Glomerular Filtration Rate 51.4 mL/min (90-130); Glucose 321 mg/dL (65-115); Osmolality Calculated 283 mOsm/kg (285-295); Total Bilirubin 1.1 mg/dL (0.15-1.2); Total Protein 5.5 g/dL (6.6-8.7)
[2021-01-20 11:56] LABS: ABG PCO2 33.5 mmHg (35-45); ABG PH Result 7.38 (7.35-7.45); Alveolar-Arterial Oxygen Gradi 26.3 mmHg (5-10); Arterial Blood Gas Hematocrit 52.2 % (42-52); Base Excess ABG -4.1 mmol/L (-2.0-2.0); Blood Gas Allen Test Pos; Blood Gas Operator Identificat AMH; Blood Gas Sample Site Radial, right; Blood Gas Sample Type Arterial; Carboxyhemoglobin 1.9 %THgb (0.4-20.1); HGB O2 Sat 93.4 % (95-100); Ionized Calcium Level - ABG 1.1 mmol/L (1.1-1.4); Methemoglobin 0.8 % (0.4-1.5); Oxygen Device NC; Oxygen Saturation ABG 95.9; PO2 ABG 71.3 mmHg (80.0-100.0); Potassium Level - ABG 4.7 mmol/L (3.5-5.0)
[2021-01-20 12:03] LABS: Absolute Segmented Neutrophil 7.3 10/cmm (1.6-7.1); Segmented Neutrophils 48 %; Total Cells Counted 100 (0-100)
[2021-01-20 12:04] LABS: Absolute Neutrophil 14.1 10^3/cmm (1.4-6.5); Band Neutrophils Absolute 6.7 10^3/cmm (0.0-1.2); Giant Platelets Trace; Lymphocytes 6 %; Lymphocytes Absolute 1.1 10^3/cmm (1.2-3.4); Platelet Estimate Normal (Normal)
--- NOTE | 2021-01-20 12:05 | PC.PHAR ---
PT STATES HE TAKES CARE OF HIS OWN MEDICATIONS-PT STATES HE TAKES METFORMIN 1000MG AT BEDTIME [facility] LAST FILLED ON 11/07/20 90D/S FOR 1000MG BID
[2021-01-20 12:16] LABS: C Reactive Protein 310.5 mg/L (0.0-4.9)
[2021-01-20 12:33] LABS: Reflex Lactate Order REFLEX LACTIC ORDERD
--- NOTE | 2021-01-20 12:40 | ECG_ITS ---
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 Measurements Intervals Mcleod Rate: 115 P: 31 TN: 124 QRS: -7 QRSD: 83 T: 63 QT: 290 QTc: 401 Interpretive Statements SINUS TACHYCARDIA ABNORMAL RHYTHM ECG Compared to ECG 01/20/2021 10:55:22 No significant changes Electronically Signed On 01-20-2021 23:50:12 CDT by Elsa Styles M.D. [id number]
--- NOTE | 2021-01-20 14:21 | PM.HP ---
Providers/Chief Complaint Primary Care Provider: Morris Prescott DO Chief Complaint: DIFF BREATHING:SENT BY FEMI History of Present Illness Clayton Rodriguez is a 60 year old male ex-smoker, nonalcoholic, received COVID-19 vaccine 2 doses 3 months ago presented today with chief complaint of worsening shortness of breath. 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 He does meet a lot of people on daily basis. He was fine until 24 hours ago when he started experiencing fever 10 3-1 04 Fahrenheit, it was associated with shortness of breath which got worse overnight and today he decided to come to the hospital for further evaluation. No recent sinus infection, diarrhea or chest pain. No one else is sick at home. He was extremely tachypneic on arrival in the ER he was diagnosed with sepsis secondary to bacterial pneumonia I have requested ICU bed because he qualifies for critical care because of severe infection and tachypnea extremely high lactic acid he was tachypneic on 6 L nasal cannula has conversational dyspnea, my concern is for the respite distress requiring intubation This was discussed with the patient and his daughter in the ER, for now he is agreeable to use BiPAP and if that fails intubation will be considered. I have requested ER physician to get CT chest without contrast, his D-dimer is unremarkable, procalcitonin remarkably high, RORO, patient is stating that he took couple of ibuprofen yesterday His systolic blood pressure runs soft as per the patient, he does not have diagnosis of hypertension he is diabetic has sleep apnea Review of Systems Const: Reports: fever(s), chills and body aches Eyes: Denies: change in vision ENMT: Denies: throat pain Card: Reports: dyspnea on exertion and orthopnea; Denies: chest pain Resp: Reports: dyspnea GI: Denies: abdominal pain : Denies: flank pain Musc: Denies: neck pain Skin/Breast: Denies: rash Neuro: Denies: headache(s) Psych: Denies: anxiety Endo: Denies: polyuria Nehemiah/Lymph: Denies: easy bruising All/Imm: Denies: urticaria Medications/Allergies Home Medications Medication Instructions Recorded Confirmed Last Taken Type metformin 1,000 mg PO BEDTIME 12/04/19 01/20/21 01/18/21 History aspirin 325 mg PO Q4H PRN 01/20/21 01/20/21 Unknown History ibuprofen 600 mg PO Q4H PRN 01/20/21 01/20/21 01/19/21 History sod urvlsqbz-jlrqyfkep-roeovwn 2 tab PO EVERY OTHER DAY PRN 01/20/21 01/20/21 Unknown History [Thermotabs] Allergies Allergy/AdvReac Type Severity Reaction Status Date / Time No Known Allergies Allergy Verified 01/20/21 12:01 PFSH Acute PFSH: Medical History (Updated 01/20/21 @ 16:11 by Brent Decker MD) Acute exacerbation of chronic obstructive airways disease Nephrolithiasis Type 2 diabetes mellitus Social History Smoking and tobacco status: former smoker Quit status (tobacco): has quit using tobacco Year quit tobacco: 2020 - 1PPD x 40 Days Second hand smoke exposure: No Smoking risk assessment/counseling performed?: Yes Alcohol intake: never Lives independently: Yes Household members: spouse Marital status: service: No Current occupational status: employed 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 Current occupational exposures/hazards: No Pets and animals: Yes History of recent travel: No Current gender identity: Male Vitals/I&O/Wt Last Vital Signs Temp 99.1 F 01/20/21 10:33 Pulse 103 H 01/20/21 13:50 Resp 29 H 01/20/21 13:27 BP 86/54 01/20/21 13:27 Pulse Ox 96 01/20/21 13:50 Weight last 48 hrs Weight 108.862 kg Physical Exam Narrative: EXAM NARRATIVE: Obese male who appears stated age Does not look fluid overloaded Is tachypneic and tachycardic Systolic blood pressure is soft Conversational dyspnea Pleuritic right-sided chest pain Distended abdomen nontender visceral obesity Lower extremity trace edema EOMI, PERRLA No neurological deficit Currently saturating well on 6 L nasal cannula however tachypnea noted Daughter at the bedside Data : 01/20/21 10:40 01/20/21 10:40 Micro: Microbiology 01/20/21 10:57 Blood Culture - Preliminary Blood SPECIMEN COLLECTED A&P Assessment and plan (1) Sepsis: Status: Acute (2) CAP (community acquired pneumonia): Status: Acute (3) Obesity: Status: Acute Qualifiers: Obesity type: unspecified obesity type Obesity classification: adult class 3 (BMI >= 40) Serious obesity comorbidity presence: unspecified whether serious comorbidity present Body mass index: BMI 40.0-44.9 Qualified Code(s): E66.01 - Morbid (severe) obesity due to excess calories; Z68.41 - Body mass index [BMI]40.0-44.9, adult (4) KASSIDY and COPD overlap syndrome: Status: Acute (5) Type 2 diabetes mellitus: Status: Acute Qualifiers: Diabetes mellitus superintendent terminal insulin use: without superintendent terminal use Diabetes mellitus complication status: with other specified complication Qualified Code(s): E11.69 - Type 2 diabetes mellitus with other specified complication (6) Acute exacerbation of chronic obstructive airways disease: Status: Acute Additional A&P Information Active issues Sepsis Severe sepsis with hypotension Lactic acidemia RORO Pleuritic chest pain Bilateral pneumonia Vaccinated for Covid Tachypnea Increased work of breathing Arranged bed in ICU Plan Acute COPD exacerbation due to community-acquired pneumonia Acute hypoxia for improvement in work of breathing I would recommend BiPAP, monitor him in ICU Morphine for pleuritic pain DuoNeb along steroids Monitor inflammatory markers Requested Covid PCR Urine antigens and MRSA PCR D-dimer unremarkable High risk for deterioration Sepsis with hypotension severe sepsis: We will give him another liter bolus He did get septic bolus in the ER We will keep Levophed on board if he requires in the ICU RORO patient take multiple dose of ibuprofen, hold anti-inflammatory ibuprofen along Metformin Anticipating provement with IV fluids, watch for signs of fluid overload Pleuritic chest pain with underlying pneumonia, D-dimer unremarkable we will follow up with CT chest, serial troponin and EKG Lactic acidemia due to increased work of breathing and sepsis Type 2 diabetes: I would allow him to eat and give him break from BiPAP depending on his tolerance moderate dose sliding scale High risk for intubation ICU admission Full code DVT prophylaxis Heparin Attestations Medical Necessity Statement*: Anticipating stay in the hospital cross more than 2 midnights Time Spent in Patient Care: Greater than 35 minutes Coding Level of Care Code 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 [facility] Fwd Diagnoses Sepsis A41.9 CAP (community acquired pneumonia) J18.9 Obesity E66.01; Z68.41 Obesity type: unspecified obesity type Obesity classification: adult class 3 (BMI >= 40) Serious obesity comorbidity presence: unspecified whether serious comorbidity present Body mass index: BMI 40.0-44.9 KASSIDY and COPD overlap syndrome G47.33; J44.9 Type 2 diabetes mellitus E11.69 Diabetes mellitus superintendent terminal insulin use: without superintendent terminal use Diabetes mellitus complication status: with other specified complication Acute exacerbation of chronic obstructive airways disease J44.1
--- NOTE | 2021-01-20 14:36 | PC.NURSE ---
PT REMOVED BIPAP AND REPLACED HIS NC STATING THAT THING IS DRIVING ME NUTS MAYBE ILL PUT IT ON LATER.
[2021-01-20] MEDS: piperacillin-tazobactam 4.5 GM in sodium chloride 0.9% (plus) 50 ML IV (14:50)
[2021-01-20 15:29] LABS: Bilirubin Urine Neg (Negative); Blood Urine 3+ (Negative); Glucose Urine UA 2+ (Normal); Ketones Urine 1+ (Negative); Leukocyte Esterase Urine Negative (Negative); Nitrate Urine Negative (Negative); Protein Urine Neg (Negative); Sulfosalicylic Acid Urine Negative (Negative); Urine Appearance SL Hazy (CLEAR); Urine Color Yellow (Yellow); Urobilinogen Urine Norm (Negative); pH Urine 5 (5-7)
[2021-01-20 15:36] LABS: Add Urine Culture? Yes; Bacteria Urine 1+ /hpf; Squamous Epithelial Cell Urine 0-4 /hpf (0-5)
--- NOTE | 2021-01-20 15:44 | CT_ITS ---
WS: [id number] CT CHEST TECHNIQUE: Noncontrast CT of the chest with coronal and sagittal reformatted images. CLINICAL INFORMATION: pneumonia COMPARISON: CT December 06, 2019 DLP: 1008.[address] scans at [facility] use at least one of these dose optimization techniques: automated e xposure control; mA and/or kV adjustment per patient size (includes targeted exams where dose is matc hed to clinical indication); or iterative reconstruction. FINDINGS: Moderate chronic emphysematous changes. Patchy infiltrates in the right lower lobe with partial conso lidation and air bronchograms compatible with pneumonia. Left lung is well aerated. No mediastinal or hilar lymphadenopathy. No axillary lymphadenopathy. Right breast nodule superior to the nipple in the upper chest measuring 15 mm. This can be further ev aluated with right diagnostic mammography and ultrasound. No axillary lymphadenopathy. Cholelithiasis with large gallstone in the gallbladder measuring 2.0 cm. Adrenal glands are normal. Normal GE junction. CT/CT chest wo con [id number] IMPRESSION: 1. Patchy infiltrates in the right lower lobe with partial consolidation and a ir bronchograms compatible with pneumonia. Recommend follow-up to resolution. 2. Left lung is well aerated. 3. No mediastinal or hilar lymphadenopathy. 4. Ovoid nodule in the right upper outer breast in the upper chest measuring 1 .5 CM. This could be further evaluated with right diagnostic mammography and ul trasound. 5. Cholelithiasis. This can be followed up with ultrasound.
[2021-01-20] MEDS: morphine 4 mg/mL SDV 1 mL 2 MG IVP (15:50)
--- NOTE | 2021-01-20 16:40 | ECG_ITS ---
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 Measurements Intervals [place] Rate: 96 P: 61 CO: 154 QRS: 23 QRSD: 96 T: 66 QT: 334 QTc: 422 Interpretive Statements SINUS RHYTHM SEPTAL MYOCARDIAL INFARCTION , OF INDETERMINATE AGE [40+ ms Q WAVE IN V1/V2] INTERPRETATION BASED ON A DEFAULT AGE OF 40 YEARS Compared to ECG 01/20/2021 13:11:27 Myocardial infarct finding now present Sinus tachycardia no longer present Electronically Signed On 01-21-2021 0:00:29 CDT by Elsa Styles M.D. [id number]
[2021-01-20] MEDS: sodium chloride 0.9% 1,000 ML 999 ML IV (17:16)
[2021-01-20] MEDS: morphine 4 mg/mL SDV 1 mL IVP (18:30)
[2021-01-20 18:34] LABS: Troponin(5th) Baseline 10 ng/L (0-15)
[2021-01-20 18:42] LABS: C Reactive Protein 346.3 mg/L (0.0-4.9)
[2021-01-20] MEDS: piperacillin-tazobactam 3.375 GM in sodium chloride 0.9% (plus) 50 ML IV (20:39)
[2021-01-20] MEDS: LORazepam 2 mg/mL INJ 1 mL 0.5 MG IVP (20:39)
[2021-01-20] MEDS: heparin 5,000 unit/mL INJ 1 mL 5000 UNIT SUBCUT (20:39)
[2021-01-20] MEDS: sodium chloride 0.9% 1,000 ML 75 ML IV ×2 (20:40→20:55)
[2021-01-20 20:49] LABS: Troponin 5 2HR 9.45 ng/L (0-15)
[2021-01-20 20:50] LABS: Troponin 5 2HR Delta -0.55 ABS# (0-10)
[2021-01-20] MEDS: linezolid premix 600 MG/300 ML PREMIX 300 MG IV (21:34)
[2021-01-20 22:10] LABS: Glucose Point of Care 268 mg/dL (70-110)
[2021-01-21] VITALS (33 sets, daily range): BP systolic 85–137; BP diastolic 59–95; PULSE 73–96; RESP 13–27; TEMP 36.4–37.2; O2SAT 87–99
[2021-01-21] MEDS: heparin 5,000 unit/mL INJ 1 mL 5000 UNIT SUBCUT ×3 (03:20→20:38)
[2021-01-21 04:33] LABS: ABG PCO2 50.1 mmHg (35-45); ABG PH Result 7.32 (7.35-7.45); Arterial Blood Gas Hematocrit 45.7 % (42-52); Base Excess ABG -1.1 mmol/L (-2.0-2.0); Blood Gas Allen Test Pos; Blood Gas Sample Site Radial, left; Blood Gas Sample Type Arterial; HCO3 ABG 25.7 mmol/L (22-26); Oxygen Device NC; PO2 ABG 78.2 mmHg (80.0-100.0)
[2021-01-21 05:01] LABS: Basophils # 0.1 10^3/uL (0.0-0.1); Basophils % 0.6 %; Eosinophils # 0.2 10^3/uL (0.0-0.8); Hematocrit 43.6 % (42.0-52.0); Hemoglobin 14.3 g/dL (11.7-16.6); Lymphocytes # 0.7 10^3/uL (0.8-4.8); Lymphocytes % 3.4 %; Mean Corpuscular HGB Conc 32.8 g/dL (30.0-36.0); Mean Corpuscular Hemoglobin 30.8 pg (28.0-34.0); Mean Platelet Volume 11.2 fL (7.4-10.4); Monocytes # 0.5 10^3/uL (0.2-0.9); Monocytes % 2.4 %; Neutrophils # 17.68 10^3/uL (1.8-7.7); Neutrophils % 91.1 %; Nucleated Red Blood Cells % 0 %; Platelet Count 156 10^3/cmm (130-400); Red Blood Count 4.64 10^6/uL (4.1-5.3); Red Cell Distribution Width 12.9 % (12.1-15.1); White Blood Count 19.4 10^3/uL (4.0-10.0)
[2021-01-21] MEDS: piperacillin-tazobactam 3.375 GM in sodium chloride 0.9% (plus) 50 ML IV ×3 (05:12→22:01)
[2021-01-21 05:17] LABS: Anion Gap 13.6 (5-19); Blood Urea Nitrogen 31 mg/dL (8-23); Calcium 7.7 mg/dL (8.5-10.5); Carbon Dioxide 24 mmol/L (22-29); Chloride 101 mmol/L (98-107); Glucose 240 mg/dL (65-115); Magnesium 1.3 mg/dL (1.7-2.3); Osmolality Calculated 292 mOsm/kg (285-295); Potassium 4.6 mmol/L (3.5-5.1); Sodium 134 mmol/L (136-145)
[2021-01-21 05:22] LABS: Procalcitonin 15.61 ng/mL (0-0.5)
[2021-01-21 05:37] LABS: C Reactive Protein 487.8 mg/L (0.0-4.9)
[2021-01-21 06:10] LABS: Slide Review Slide Review Perform
--- NOTE | 2021-01-21 07:30 | PC.NURSE ---
BiPap alarming. Upon entering room noted pt sitting on side of bed with BiPap off, a large puddle noted on the floor and his bedside table. Left hand IV out., Monitor wires off. Assisted pt with getting to chair, provided a longer oxygen cannula, reattaching monitoring and put IV fluids to Left forearm IV.
[2021-01-21 08:57] LABS: Glucose Point of Care 231 mg/dL (70-110)
[2021-01-21] MEDS: linezolid premix 600 MG/300 ML PREMIX 300 MG IV ×2 (09:04→20:37)
[2021-01-21] MEDS: sodium chloride 0.9% 1,000 ML 75 ML IV (09:05)
[2021-01-21 11:27] LABS: Glucose Point of Care 323 mg/dL (70-110)
--- NOTE | 2021-01-21 12:30 | PC.NURSE ---
Pt refused lunch. His daughter brought him in [employer] with a Regular Coke. Pt informed that this did no follow his Cardiac diet plan.
--- NOTE | 2021-01-21 17:03 | PM.PN ---
Subjective Subjective: Interval history: Tachypnea has improved he did well overnight, currently on 5 L nasal cannula Has active wheezing Afebrile Cultures negative to date Leukocytosis improved Transfer out of ICU to [facility] Vitals/I&O/Wt Last Vital Signs Temp 98.3 F 01/21/21 14:00 Pulse 79 01/21/21 15:30 Resp 22 H 01/21/21 15:30 BP 128/76 01/21/21 15:30 Pulse Ox 94 01/21/21 15:30 01/21/21 01/21/21 01/21/21 06:59 14:59 22:59 Intake Total 148.333 / 3982.333 2981.25 / 2981.25 Output Total 800 / 800 1025 / 1025 Balance -651.667 / 3182.333 1955.25 / 1955. Weight last 48 hrs Weight 108.862 kg Physical Exam Narrative: EXAM NARRATIVE: Patient was sitting in his chair without any active discomfort He does look much comfortable as compared to yesterday the no tachypnea respiratory rate 18 saturating well on 5 L nasal cannula Abdomen soft Right-sided chest pain has improved EOMI, PERRLA Active expiratory wheezing bilateral noted EOMI, PERRLA Pleasant mood Data : 01/21/21 04:46 01/21/21 04:46 Micro: Microbiology 01/20/21 19:52 MRSA Culture - Final Nose 01/20/21 10:57 Blood Culture - Preliminary Blood Gram positive cocci 01/20/21 14:34 Legionella Urinary Antigen - Final Urine,Clean Catch 01/21/21 03:07 Bacterial Antigens - Final Urine,Clean Catch 01/20/21 18:00 Blood Culture - Preliminary Blood SPECIMEN COLLECTED A&P Assessment and plan (1) Breast nodule: Status: Acute (2) Acute respiratory failure with hypoxia: Status: Acute (3) CAP (community acquired pneumonia): Status: Acute (4) Sepsis: Status: Acute Additional A&P Information Active issues Sepsis Community-acquired pneumonia Active wheezing COPD exacerbation Active smoker Obesity RORO Hyperglycemia Plan Transfer out of ICU to [facility] Currently doing well on 5 L nasal cannula I will keep him on steroids for now for active wheezing ABG shows compensated pH Monitor for signs of lung abscess in case of worsening of fever or leukocytosis, currently he is afebrile with improvement in leukocytosis High CRP and procalcitonin noted D-dimer unremarkable Blood culture from 01/20 showing gram-positive cocci 2 bottles, will request echo, MRSA nares negative, urine antigens negative Full code Consistent carb diet Insulin for hyperglycemia Decrease the dose of steroid Breast nodule:Patient was asked to follow-up outpatient for further screening and diagnostic purposes Attestations Medical Necessity Statement*: Transfer out of ICU Time Spent in Patient Care: 16 - 35 minutes Coding Level of Care Code 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
[2021-01-21 17:31] LABS: Glucose Point of Care 451 mg/dL (70-110)
--- NOTE | 2021-01-21 18:25 | PC.NURSE ---
Report faxed to [employer].
--- NOTE | 2021-01-21 18:45 | PC.NURSE ---
Pt transferred to [facility] room 267. All belongings with pt. Bedside report given to PREETI Short, [facility].
--- NOTE | 2021-01-21 19:28 | PC.NURSE ---
Shift Note: Pt remained on 6lpm/NC all shift. Lung sounds improved, only the right lower lobe was wheezy. Pt refused to eat provided meals. Family brought in [employer]. Pt refused to do [facility] Covid testing. He stated he had been swabbed 3 times already this admission. Pt had two Iv in in left hand/arm at beginning of shift which were caught on things and/or pulled out. He as a new IV in his left wrist/forearm. He has used the urinal a few times today, he has had a BM today. Frequent safety and comfort rounds continue. Orders and/or nursing care completed as indicated. Patient monitored for response to intervention and treatment(s). Education provided includes Decadron, zosyn, and zyvox. 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 Will continue to monitor.
[2021-01-21 20:49] LABS: Glucose Point of Care 274 mg/dL (70-110)
[2021-01-22] VITALS (12 sets, daily range): BP systolic 103–129; BP diastolic 65–82; PULSE 56–71; RESP 16–19; TEMP 36.3–37.2; O2SAT 93–98
[2021-01-22] MEDS: sodium chloride 0.9% 1,000 ML 75 ML IV (02:05)
[2021-01-22] MEDS: heparin 5,000 unit/mL INJ 1 mL 5000 UNIT SUBCUT (04:35)
[2021-01-22] MEDS: piperacillin-tazobactam 3.375 GM in sodium chloride 0.9% (plus) 50 ML IV ×3 (04:35→20:14)
[2021-01-22 05:34] LABS: Basophils # 0.1 10^3/uL (0.0-0.1); Basophils % 0.4 %; Eosinophils % 0.2 %; Hematocrit 44.4 % (42.0-52.0); Hemoglobin 14.4 g/dL (11.7-16.6); Lymphocytes # 0.8 10^3/uL (0.8-4.8); Lymphocytes % 4.5 %; Mean Corpuscular HGB Conc 32.4 g/dL (30.0-36.0); Mean Corpuscular Hemoglobin 31.3 pg (28.0-34.0); Mean Corpuscular Volume 96.5 fl (80-94); Mean Platelet Volume 11.8 fL (7.4-10.4); Monocytes # 0.8 10^3/uL (0.2-0.9); Monocytes % 4.5 %; Neutrophils # 15.85 10^3/uL (1.8-7.7); Neutrophils % 89.1 %; Nucleated Red Blood Cells % 0 %; Platelet Count 169 10^3/cmm (130-400); Red Cell Distribution Width 13.2 % (12.1-15.1); White Blood Count 17.8 10^3/uL (4.0-10.0)
[2021-01-22 05:57] LABS: Slide Review Slide Review Perform
[2021-01-22 06:03] LABS: Blood Urea Nitrogen 31 mg/dL (8-23); C Reactive Protein 294.5 mg/L (0.0-4.9); Calcium 8.3 mg/dL (8.5-10.5); Carbon Dioxide 25 mmol/L (22-29); Chloride 104 mmol/L (98-107); Glomerular Filtration Rate 114.3 mL/min (90-130); Glucose 246 mg/dL (65-115); Osmolality Calculated 301 mOsm/kg (285-295); Sodium 138 mmol/L (136-145)
[2021-01-22 06:04] LABS: Anion Gap 13.2 (5-19); Potassium 4.2 mmol/L (3.5-5.1)
[2021-01-22 06:06] LABS: Procalcitonin 8.75 ng/mL (0-0.5)
[2021-01-22 06:42] LABS: Glucose Point of Care 262 mg/dL (70-110)
[2021-01-22] MEDS: linezolid premix 600 MG/300 ML PREMIX 300 MG IV (09:03)
[2021-01-22] MEDS: ipratropium-albuterol 3 mL Neb INHALATION ×2 (11:33→20:47)
--- NOTE | 2021-01-22 11:54 | PC.NURSE ---
Pt reports chest tightness and SOB. RT administered breathing tx and oxygen sats mid to upper 90's. Dr. Decker notified.
--- NOTE | 2021-01-22 12:05 | PM.PN ---
Subjective Subjective: Interval history: Patient is endorsing feeling better however does experience wheezing intermittently Is doing well on 3 L nasal cannula Afebrile Hyperglycemia Normotensive I did discuss with him his culture results and repeat blood culture reason, also hemolytic would include viridans and strep pneumo No active chest pain He has been trying to get out of bed walk in his room Fluids discontinued this morning Vitals/I&O/Wt Last Vital Signs Temp 97.5 F L 01/22/21 08:00 Pulse 64 01/22/21 11:42 Resp 18 01/22/21 11:33 BP 104/66 01/22/21 08:00 Pulse Ox 98 01/22/21 11:33 01/21/21 01/22/21 01/22/21 22:59 06:59 14:59 Intake Total 1999 / 4981.25 530 / 5511.25 400 / 400 Output Total 700 / 1725 250 / 1975 Balance 1300 / 3256.25 280 / 3536.25 400 / 400 Physical Exam Narrative: EXAM NARRATIVE: Patient was standing by the window S1, S2 Very pleasant and cooperative during my evaluation Doing well on 3 L nasal cannula Active expiratory wheezing noted on deep expiration Otherwise no use of respiratory sensory muscles No acute signs of congestive heart failure Abdomen distended visceral obesity Nontender Lower extremity no edema EOMI, PERRLA No neurological deficits Data : 01/22/21 04:47 01/22/21 04:47 Micro: Microbiology 01/20/21 10:57 Blood Culture - Preliminary Blood Strep species, alpha hemolytic 01/20/21 15:03 Urine Culture - Preliminary Urine,Clean Catch 01/21/21 20:46 Blood Culture - Preliminary Blood SPECIMEN COLLECTED 01/21/21 20:46 Blood Culture - Preliminary Blood SPECIMEN COLLECTED 01/20/21 18:00 Blood Culture - Preliminary Blood NEGATIVE TO DATE 01/20/21 19:52 MRSA Culture - Final Nose 01/20/21 14:34 Legionella Urinary Antigen - Final Urine,Clean Catch 01/21/21 03:07 Bacterial Antigens - Final Urine,Clean Catch A&P Assessment and plan (1) Breast nodule: Status: Acute (2) Acute respiratory failure with hypoxia: Status: Acute (3) CAP (community acquired pneumonia): Status: Acute (4) Sepsis: Status: Acute (5) Hypertension: Status: Acute (6) Type 2 diabetes mellitus: Status: Acute Qualifiers: Diabetes mellitus adjunct faculty for medical terminology insulin use: without nursing home use Diabetes mellitus complication status: with other specified complication Qualified Code(s): E11.69 - Type 2 diabetes mellitus with other specified complication Additional A&P Information Active issues Acute hypoxia Dense consolidation right lower lobe Alphahemolytic Streptococcus concern for pneumonia versus viridans COPD exacerbation Active wheezing Hyperglycemia RORO Obesity Breast mass Plan Acute hypoxia related to sepsis community-acquired pneumonia concern for strep pneumo bacteremia, repeat blood cultures done yesterday has been afebrile leukocytosis improving I will keep him on steroids Solu-Medrol 50 mg every 12 for now Add budesonide Continue DuoNeb treatment Trend procalcitonin and CRP We will repeat D-dimer tomorrow Start insulin with moderate dose sliding scale he does have steroid-induced hyperglycemia Consistent carb diet Breast nodule outpatient follow-up RORO resolved with IV fluids, IV fluids to be discontinued today Attestations Medical Necessity Statement*: Continue medical management anticipating discharge over the weekend if clinically improves Time Spent in Patient Care: 16 - 35 minutes Coding Level of Care Code 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
[2021-01-22 12:13] LABS: Glucose Point of Care 281 mg/dL (70-110)
[2021-01-22] MEDS: enoxaparin 40 mg/0.4 mL Syringe SUBCUT (12:25)
[2021-01-22 13:44] LABS: Estmated Average Glucose 260; Hemoglobin A1C 10.7 % (4.0-6.0)
--- NOTE | 2021-01-22 14:01 | PC.CHAP ---
Pastoral Care Encounter/Spiritual Assessment Type of Contact [] Declined facility manager visit [] Patient/Family/Request visit [] Outpatient visit [xx] Follow-up visit [] Physician referral [] Code/Alert [xx] Routine visit [] Staff referral [] Actively dying [] Patient sleeping [] Family support [] [] Out of room [] Palliative care [] [] Receiving care in room [] Pre-surgical visit [] Trauma [] Long length of stay [] ICU visit [] Other: Relational/Emotional Strength [xx] Patient feels connected with others/family/visitors/staff [] Distress [] Loneliness/isolation [] Abandonment Spirituality of Patient [xx] Person of Aditi [] Attends Pentecostalism of their Aditi [xx] Believes in Prayer [xx] Reads Bible or Christian materials [] There are Spiritual issues to be addressed Narcotics And Vice Detective Interventions [xx] Prayer [xx] Active listening [xx] Non-anxious presence [] Spiritual/emotional support [] Crisis/trauma care [] Spiritual counseling [] Bereavement support [] Provided bereavement packet [xx] Provided Bible/devotional materials [] Provided toy/stuffed animal, coloring book to patient or family member [] Provided Communion [] Anointing/[place] [] Salvation [xx] Completed spiritual assessment [] Other: Impact on Illness or Injury [] Angry [] Fearful [] Anxious [] Often cries [] Exhaustion [] Unable to work [] Unable to attend synagogue [] Unable to walk/stand [] Unable to read [] Unable to drive [] Unable to eat/drink [] Unable to sleep [] Unable to be with family [] Patient intubated [] Other: Summary Patient wanted prayer but did not feel like visiting much. He is concerned about his current health situation. Time spent with patient 5 minutes
[2021-01-22] MEDS: cefepime 2,000 MG in sodium chloride 0.9% (plus) 50 ML 100 MG IV (15:45)
--- NOTE | 2021-01-22 15:52 | PC.RESP ---
PULMONARY REHAB INFORMATION SENT TO PATIENT.
--- NOTE | 2021-01-22 17:13 | USCV_ITS ---
Clayton Rodriguez Age: 60 Gender: M : 1960 Exam Date: 01/22/2021 07:07 Ordering Phys: Brent Decker MD Technologist: [place] [facility] [facility] [place]ication: SOB BP: 134 / 74 HR: 61 Rhythm: Sinus Technical Quality: Adequate MEASUREMENTS (Male / Female) Normal Values 2D ECHO LV Diastolic Diameter PLAX 4.2 cm 4.2 - 5.9 / 3.9 - 5.3 cm LV Systolic Diameter PLAX 3.2 cm IVS Diastolic Thickness 1.3 cm 0.6 - 1.0 / 0.6 - 0.9 cm IVS Systolic Thickness 1.8 cm LVPW Diastolic Thickness 1.3 cm 0.6 - 1.0 / 0.6 - 0.9 cm LVPW Systolic Thickness 1.3 cm LVOT Diameter 2.1 cm LV Ejection Fraction 2D Teich 49.1 % LV Ejection Fraction MOD 2C 50.3 % LV Ejection Fraction 2C AL 49.2 % LA Diameter 3.3 cm LA Width 4.3 cm LA Height 5.8 cm RA Width 3.6 cm RA Height 4.9 cm DOPPLER AV Peak Velocity 110.0 cm/s LVOT Peak Velocity 91.0 cm/s AV Area Cont Eq vti 2.9 cm squared AV Area Cont Eq pk 2.8 cm squared MV Area PHT 5.0 cm squared Mitral E to A Ratio 1.2 MV E' Velocity 47.5 cm/s Mitral E to MV E' Ratio 9.8 Mitral E to LV E' Lateral Ratio 10.1 Mitral E to LV E' Septal Ratio 9.7 TR Peak Velocity 126.0 cm/s TR Peak Gradient 6.4 mmHg TV Peak E Velocity 99.0 cm/s Right Atrial Pressure 3.0 mmHg Pulmonary Artery Systolic Pressu 9.4 mmHg FINDINGS Left Ventricle Normal left ventricular size. LV systolic function is mild to moderately reduced with EF of 40-45%.Mild to moderate global hypokinesis is noted. Normal diastolic filling pattern. Right Ventricle The right ventricle is normal in size and function. Right Atrium The right atrium is normal in size. Left Atrium The left atrium is normal in size. Mitral Valve Structurally normal mitral valve without significant stenosis or prolapse. There is no mitral regurgitation. Aortic Valve Not well visualized. No significant aortic stenosis. There is no aortic regurgitation. Tricuspid Valve Structurally normal tricuspid valve without significant stenosis or regurgitation. Insufficient TR jet to calculate RVSP Pulmonic Valve Structurally normal pulmonic valve without significant stenosis. There is no pulmonic regurgitation. Pericardium Normal pericardium without effusion. Aorta Normal ascending aorta dimension. CONCLUSIONS Technically limited quality echocardiogram because of poor ultrasonic windows. LV systolic function is mild to moderately reduced with EF of 40 to 45%. Mild to moderate global hypokinesis is noted. No significant valvular heart disease is seen. Compared to prior echocardiogram from 12/06/2019, LV systolic function has decreased now to 40 to 45% Silviano Vee MD (Electronically Signed) Final Date: 22 January 2021 21:12 S
[2021-01-22 17:41] LABS: Glucose Point of Care 487 mg/dL (70-110)
[2021-01-22] MEDS: insulin glargine 100 units/1 mL 10 UNIT SUBCUT (20:14)
[2021-01-22] MEDS: budesonide 0.5 mg/2 mL Neb INHALATION (20:47)
[2021-01-22 21:09] LABS: Glucose Point of Care 245 mg/dL (70-110)
[2021-01-23] VITALS (8 sets, daily range): BP systolic 109–135; BP diastolic 65–81; PULSE 58–93; RESP 18; TEMP 36.4–37.2; O2SAT 87–97
[2021-01-23] MEDS: cefepime 2,000 MG in sodium chloride 0.9% (plus) 50 ML 100 MG IV (01:42)
[2021-01-23] MEDS: morphine 4 mg/mL SDV 1 mL 2 MG IVP (01:56)
[2021-01-23] MEDS: piperacillin-tazobactam 3.375 GM in sodium chloride 0.9% (plus) 50 ML IV (04:33)
[2021-01-23 06:26] LABS: Glucose Point of Care 272 mg/dL (70-110)
[2021-01-23 06:29] LABS: Basophils # 0.1 10^3/uL (0.0-0.1); Basophils % 0.4 %; Hematocrit 44.4 % (42.0-52.0); Lymphocytes # 0.8 10^3/uL (0.8-4.8); Lymphocytes % 6.4 %; Mean Corpuscular HGB Conc 31.5 g/dL (30.0-36.0); Mean Corpuscular Hemoglobin 30.6 pg (28.0-34.0); Mean Corpuscular Volume 97.2 fl (80-94); Mean Platelet Volume 12.1 fL (7.4-10.4); Monocytes # 0.5 10^3/uL (0.2-0.9); Monocytes % 3.9 %; Neutrophils # 10.47 10^3/uL (1.8-7.7); Neutrophils % 87.7 %; Nucleated Red Blood Cells % 0 %; Platelet Count 156 10^3/cmm (130-400); Red Blood Count 4.57 10^6/uL (4.1-5.3); Red Cell Distribution Width 13.2 % (12.1-15.1); White Blood Count 11.9 10^3/uL (4.0-10.0)
[2021-01-23 06:48] LABS: C Reactive Protein 106.8 mg/L (0.0-4.9); Chloride 103 mmol/L (98-107); Potassium 4.5 mmol/L (3.5-5.1); Sodium 136 mmol/L (136-145)
[2021-01-23 06:57] LABS: Procalcitonin 4.44 ng/mL (0-0.5)
[2021-01-23 07:30] LABS: Anion Gap 13.5 (5-19); Blood Urea Nitrogen 25 mg/dL (8-23); Calcium 8.4 mg/dL (8.5-10.5); Carbon Dioxide 24 mmol/L (22-29); Glomerular Filtration Rate 114.3 mL/min (90-130); Glucose 264 mg/dL (65-115); Osmolality Calculated 296 mOsm/kg (285-295)
[2021-01-23] MEDS: ipratropium-albuterol 3 mL Neb INHALATION (08:33)
[2021-01-23] MEDS: budesonide 0.5 mg/2 mL Neb INHALATION (08:33)
--- NOTE | 2021-01-23 10:15 | PM.DCS ---
Discharge Providers Date of Admission: 01/20/21 14:34 Date of Discharge: January 23, 2021 Attending Provider at Admission: Brent Decker MD Attending Provider at Discharge: Brent Decker MD Primary Care Provider: Morris Prescott DO Diagnoses at Discharge Discharge Diagnosis (1) Breast nodule: Status: Acute (2) Acute respiratory failure with hypoxia: Status: Acute (3) CAP (community acquired pneumonia): Status: Acute (4) Sepsis: Status: Acute (5) Hypertension: Status: Acute (6) Type 2 diabetes mellitus: Status: Acute Qualifiers: Diabetes mellitus complication status: with other specified complication Diabetes mellitus long lines operator insulin use: without senior care use Qualified Code(s): E11.69 - Type 2 diabetes mellitus with other specified complication Reason for Visit Reason for Visit: DIFF BREATHING:SENT BY [facility] Course Hospital Course 60-year-old male with history of active smoking, oxygen dependent COPD, obesity, diabetes presented to the hospital with chief point of worsening shortness of breath. His symptoms (fever and shortness of breath) started 24 hours before his arrival in the ER. Please see my H&P for further details. He was admitted for management of sepsis related to community-acquired pneumonia, D-dimer was unremarkable, initially for tachypnea to decrease work of breathing he was put on BiPAP. He was in ICU for overnight monitoring, next day he was transition to MedSur, his blood culture grew alphahemolytic strep pneumo however repeat blood cultures remained sterile. He remained afebrile, leukocytosis improved, procalcitonin and CRP inflammatory markers also improved. He did exhibit expiratory wheezing which improved with high-dose steroids. His hemoglobin A1c is around 10, echo did not show any vegetation however showed EF 40 to 45%, high BNP. CT chest consistent with dense consolidation. IMPRESSION: 1. Patchy infiltrates in the right lower lobe with partial consolidation and air bronchograms compatible with pneumonia. Recommend follow-up to resolution. 2. Left lung is well aerated. 3. No mediastinal or hilar lymphadenopathy. 4. Ovoid nodule in the right upper outer breast in the upper chest measuring 1.5 CM. This could be further evaluated with right diagnostic mammography and ultrasound. 5. Cholelithiasis. This can be followed up with ultrasound. Urine antigens, negative MRSA PCR: Negative Covid: Negative 01/20Strep pneumo is penicillin sensitive, 01/21 blood cultures are sterile he will be discharged home with 2 weeks of Augmentin course with follow-up with analytical clerk\he does have trilogy inhaler at home Medrol pack Lantus 10 units for hemoglobin A1c of 10 he does have lancets, glucometer and strips at home I have prescribed lisinopril and Lasix for reduced action fraction heart failure and outpatient follow-up with Dr. Carroll(patient did not want to stay in the hospital on 01/23, he was told about all of the above findings.) Outpatient PCP follow-up for breast mass Physical Exam Narrative: EXAM NARRATIVE: Patient was standing by the window S1, S2 Very pleasant and cooperative during my evaluation Doing well on 2 L nasal cannula No wheezing noted on deep expiration Otherwise no use of respiratory sensory muscles No acute signs of congestive heart failure Abdomen distended visceral obesity Nontender Lower extremity no edema EOMI, PERRLA No neurological deficits Discharge Data Data Completed and Pending: Completed Studies During Hospitalization Category Date Time Status CT chest wo con 7 1250 Urgent Cat Scan 01/20/21 15:44 Completed XR chest 1V suzanne ble [id number] Stat Exams 01/20/21 10:40 Completed CV. echo complete * [id number] Routine Ultrasound 01/22/21 17:13 Completed Pending at discharge Category Date Time Status Blood Culture Sta t Lab 01/20/21 18:00 Results Blood Culture Sta t Lab 01/21/21 20:46 Results Coronavirus Test [facility] ne Lab 01/20/21 15:45 Ordered Sputum Culture an d Gram Stain [facility] Lab 01/22/21 12:12 Ordered Labs from last 24 hours 01/23/21 01/23/21 01/23/21 06:17 05:32 05:32 WBC 11.9 H RBC 4.57 Hgb 14.0 Hct 44.4 MCV 97.2 H MCH 30.6 MCHC 31.5 RDW 13.2 Plt Count 156 MPV 12.1 H Neut % (Auto) 87.7 Lymph % (Auto) 6.4 Fannin % (Auto) 3.9 Eos % (Auto) 0.0 Baso % (Auto) 0.4 Neut # (Auto) 10.47 H Lymph # (Auto) 0.8 Fannin # (Auto) 0.5 Eos # (Auto) 0.0 Baso # (Auto) 0.1 Nucleated RBC % (a uto) 0 Nucleated RBCs # 0.0 Sodium 136 Potassium 4.5 Chloride 103 Carbon Dioxide 24 Anion Gap 13.5 BUN 25 H Creatinine 0.7 GFR Calculation 114.3 Glucose 264 H POC Glucose 272 H Estimat Average Gl ucose Hemoglobin A1c Calculated Osmolal ity 296 H Calcium 8.4 L C-Reactive Protein 106.8 H Procalcitonin 01/23/21 01/22/21 01/22/21 05:32 20:51 17:27 WBC RBC Hgb Hct MCV MCH MCHC RDW Plt Count MPV Neut % (Auto) Lymph % (Auto) Fannin % (Auto) Eos % (Auto) Baso % (Auto) Neut # (Auto) Lymph # (Auto) Fannin # (Auto) Eos # (Auto) Baso # (Auto) Nucleated RBC % (a uto) Nucleated RBCs # Sodium Potassium Chloride Carbon Dioxide Anion Gap BUN Creatinine GFR Calculation Glucose POC Glucose 245 H 487 H Estimat Average Gl ucose Hemoglobin A1c Calculated Osmolal ity Calcium C-Reactive Protein Procalcitonin 4.44 H 01/22/21 01/22/21 11:43 04:47 WBC RBC Hgb Hct MCV MCH MCHC RDW Plt Count MPV Neut % (Auto) Lymph % (Auto) Fannin % (Auto) Eos % (Auto) Baso % (Auto) Neut # (Auto) Lymph # (Auto) Fannin # (Auto) Eos # (Auto) Baso # (Auto) Nucleated RBC % (a uto) Nucleated RBCs # Sodium Potassium Chloride Carbon Dioxide Anion Gap BUN Creatinine GFR Calculation Glucose POC Glucose 281 H Estimat Average Gl ucose 260 Hemoglobin A1c 10.7 H Calculated Osmolal ity Calcium C-Reactive Protein Procalcitonin Vitals: Last Vital Signs Temp 97.9 F 01/23/21 08:20 Pulse 58 L 01/23/21 08:44 Resp 18 01/23/21 08:33 BP 133/81 01/23/21 08:20 Pulse Ox 87 L 01/23/21 08:33 Discharge Plan Discharge Patient Disposition: Home Condition: Stable Prescriptions: New Lantus U-100 Insulin 100 unit/mL solution 10 unit SUBCUT DAILY Qty: 10 RF: 1 metformin 1,000 mg tablet 1,000 mg PO DAILY Qty: 30 RF: 2 Augmentin 875-125 mg tablet 1 tab PO BID Qty: 28 RF: 0 Medrol (Drew) 4 mg tablets,dose pack See Rx Instructions .ROUTE .COMPLEX Qty: 21 RF: 0 lisinopril 10 mg tablet 10 mg PO DAILY Qty: 30 RF: 0 Lasix 20 mg tablet 10 mg PO DAILY Qty: 30 RF: 0 potassium chloride 10 mEq capsule, extended release 10 meq PO DAILY Qty: 30 RF: 0 Continued metformin 1,000 mg Tablet 1,000 mg PO BEDTIME RF: 0 aspirin 325 mg Tablet 325 mg PO Q4H PRN (Reason: Pain) RF: 0 ibuprofen 200 mg Tablet 600 mg PO Q4H PRN (Reason: Pain) RF: 0 sod [id number]-gojrhogyh-prccere Tablet 2 tab PO EVERY OTHER DAY PRN (Reason: Muscle Spasm) RF: 0 Discharge Orders: Discharge Order (Routine); Ordered 01/23/21 Ordered By: Brent Decker Referrals: DatarKamari MD [Physician] - 7-10 days (CALL FIRST THING MONDAY MORNING TO SCHEDULE FOLLOW UP APPOINTMENTS [phone]) Brent Carroll MD [Physician] - 2 weeks (EF 40% CHF) Patient Instructions: Lisinopril (By mouth), Furosemide (By mouth), Potassium Chloride (By mouth), Amoxicillin/Clavulanate Potassium (By mouth), Methylprednisolone (By mouth), Metformin (By mouth), Insulin Glargine (Injection), Community-acquired Pneumonia (DC), Opioid Safety Discharge Attestations Time Spent in Discharge Care*: less than 30 min Quality Metrics Clinical Quality Measures During this hospital stay, did patient experience: None Coding Level of Care Code Acute Chg FW DC note Diagnoses Breast nodule N63.0 Acute respiratory failure with hypoxia J96.01 CAP (community acquired pneumonia) J18.9 Sepsis A41.9 Hypertension I10 Type 2 diabetes mellitus E11.69 Diabetes mellitus complication status: with other specified complication Diabetes mellitus long lines operator insulin use: without long lines operator use
--- NOTE | 2021-01-23 10:40 | PC.NURSE ---
documented on wrong pt.
--- NOTE | 2021-01-23 10:40 | PC.NURSE ---
documented on wrong pt.
--- NOTE | 2021-01-23 10:42 | PC.NURSE ---
documented on wrong pt.
[2021-01-23 11:20] LABS: Glucose Point of Care 260 mg/dL (70-110)
--- NOTE | 2021-01-25 16:25 | PC.SOCIAL ---
dr Decker is not working today but was notified by pharmacy that lantus not on formulary. Dr Orozco gave verbal to switch to one of the other alternatives. Basaglar was the cheapest at $35. [facility] Also verbal for needles and glucometer with test strips and lancets if needed. left message for patient of the change since was unable to reach patient or .
--- NOTE | 2021-01-26 14:05 | PC.SOCIAL ---
discharge follow up call made, spoke with patient. patient picked up medications from the pharmacy, lantus was changed to Basaglar due to cost of Lantus. Patient reports he isn't taking Lasix, he isn't having any fluid build up. patient is aware of follow up appointment dates and times. patient denies questions or concerns.
== END 2021-01-23 11:42 | disposition home or self-care (01) | DRG 871 ==
LOC: ER 11:20 → ICU 16:35 → MEDSURG 01-21 18:44
PROVIDERS: Physician Assistant; Admitting Provider Internal Medicine; Emergency Provider Emergency Medicine; PCP Electrodiagnostic Medicine; Visit Provider Internal Medicine
DX: A41.9 Sepsis, unspecified organism (principal); J13 Pneumonia due to Streptococcus pneumoniae; J96.01 Acute respiratory failure with hypoxia; J44.0 Chronic obstructive pulmonary disease with (acute) lower respiratory infection; J44.1 Chronic obstructive pulmonary disease with (acute) exacerbation; E87.2 Acidosis; N17.9 Acute kidney failure, unspecified; I10 Essential (primary) hypertension; G47.33 Obstructive sleep apnea (adult) (pediatric); E11.65 Type 2 diabetes mellitus with hyperglycemia; Z87.442 Personal history of urinary calculi; E66.9 Obesity, unspecified; Z68.37 Body mass index [BMI] 37.0-37.9, adult; Z87.891 Personal history of nicotine dependence; I95.9 Hypotension, unspecified; N63.0 Unspecified lump in unspecified breast; Z79.84 Long term (current) use of oral hypoglycemic drugs
CPT/HCPCS: 36415; 36416; 36600; 71045; 71250; 80048; 80051; 80053; 81001; 82330; 82803; 82805; 82962; 83036; 83605; 83735; 83880; 84145; 84484; 85007; 85025; 85378; 86140; 86403; 87040; 87077; 87086; 87186; 87205; 87426; 87449; 87641; 93005; 93306; 94640; 94660; 96365; 96366; 96367; 96372; 96375; 96376; 99291; J0692; J1100; J1644; J1650; J1815 ×2; J2020; J2060; J2270; J2543; J2920; J2930; J3370; J7030; J7040; J7626

== ENCOUNTER 2021-02-03 15:14 | Outpatient (CLI) | payer OTHER, SELFPAY ==
[2021-02-03 16:29] LABS: Bilirubin Urine Neg (Negative); Blood Urine Trace (Negative); Glucose Urine UA 2+ (Normal); Ketones Urine Negative (Negative); Nitrate Urine Negative (Negative); Protein Urine Neg (Negative); Urine Appearance Clear (CLEAR); Urine Color Yellow (Yellow); Urobilinogen Urine Norm (Negative); pH Urine 5 (5-7)
[2021-02-03 16:30] LABS: Add Urine Culture? No; Add Urine Microscopic? YES; Bacteria Urine TRACE /hpf; Leukocyte Esterase Urine Negative (Negative); RBC Urine 0-4 /hpf (0-2); Squamous Epithelial Cell Urine 0-4 /hpf (0-5)
== END 2021-02-03 15:15 | disposition home or self-care (01) ==
LOC: LAB 15:17
PROVIDERS: PCP Internal Medicine; Visit Provider Internal Medicine Pulmonary Disease
DX: R10.9 Unspecified abdominal pain (principal)
CPT/HCPCS: 81001

== ENCOUNTER 2021-02-22 07:40 | Outpatient (CLI) | payer OTHER, SELFPAY ==
--- NOTE | 2021-02-22 07:47 | MM_ITS ---
WS: [id number] BILATERAL DIGITAL DIAGNOSTIC MAMMOGRAM MAMMOGRAPHY WITH CAD CLINICAL INFORMATION: RT BREAST LUMP COMPARISON: CT chest January 20, 2021 TECHNIQUE: Bilateral CC, MLO, and ML views. FINDINGS: Scattered fibroglandular densities bilaterally. In the area of palpable concern right breast is an ov oid nodule measuring 1.5 x 1.6 cm near the 12:00 position posterior depth. Left breast is unremarkabl e. Ultrasound is pending. ULTRASOUND BREAST RIGHT TECHNIQUE: Ultrasound right breast focused area of concern. CLINICAL INFORMATION: RT BREAST LUMP FINDINGS: Ultrasound right breast at the12:00 position. There is a solid well-circumscribed hypoechoic lesion m easuring 2.0 x 1.3 x 1.9 CM. This lesion is suspicious and recommend further evaluation with ultrasou nd-guided biopsy MM/[place] [id number] IMPRESSION: RECOMMEND ULTRASOUND-GUIDED BIOPSY RIGHT BREAST NODULE BI-RADS: 4-Suspicious Finding-Biopsy Should Be Considered FOLLOW UP: US Guided Biopsy Recommended
== END 2021-02-22 07:41 | disposition home or self-care (01) ==
LOC: RADSHAW 07:42
PROVIDERS: PCP Internal Medicine; Visit Provider Internal Medicine
DX: N63.15 Unspecified lump in the right breast, overlapping quadrants (principal)
CPT/HCPCS: 76642; 77066

== ENCOUNTER 2021-02-22 08:46 | Outpatient (CLI) | payer OTHER, SELFPAY ==
--- NOTE | 2021-02-22 | CT_ITS ---
WS: [id number] CT ABDOMEN PELVIS TECHNIQUE: Noncontrast CT of the abdomen and pelvis with coronal and sagittal reformatted images. CLINICAL INFORMATION: NEPHROLITHIASIS COMPARISON: CT chest January 20, 2021 DLP: 1165.[address] scans at [facility] use at least one of these dose optimization techniques: automated e xposure control; mA and/or kV adjustment per patient size (includes targeted exams where dose is matc hed to clinical indication); or iterative reconstruction. FINDINGS: Cholelithiasis. Prominent gallstone measuring 22 mm. No gallbladder wall thickening or pericholecysti c fluid. Right lower lobe pneumonia has improved compared to previous. Small amount of residual patch y infiltrate. Multiple coarse prominent right renal calyceal calculi the largest measuring 13 -14 mm. Mild induration in the right renal pelvis with mild pelvocaliectasis. Right ureter is decompressed. No obstructing ureteral calculi. Nonobstructing left renal or ureteral calculi. Left calyceal tip calculi largest measuring 7 mm. Noncontrast liver is normal. Normal GE junction. Adrenal glands are normal. Noncontrast pancreas appe ars normal. Normal caliber noncontrast aorta. Sigmoid diverticulosis. No evidence of acute diverticulitis. Normal appendix appendix in the right lo wer quadrant. Tiny fat-containing umbilical hernia. No abdominal or pelvic lymphadenopathy. IMPRESSION: 1. Large right calyceal calculi the largest measuring 13- 14 mm. Mild induration and inflammatory st randing in the right renal pelvis with mild pelvocaliectasis. Recommend correlation for UTI and pyelo nephritis. Right ureter is decompressed. 2. No obstructing left renal or ureteral calculi. 3. Improved pneumonia right lower lobe with residual patchy infiltrate. 4. Cholelithiasis. 5. Sigmoid diverticulosis.
== END 2021-02-22 08:47 | disposition home or self-care (01) ==
PROVIDERS: PCP Internal Medicine; Visit Provider Internal Medicine
DX: N20.0 Calculus of kidney (principal); K57.30 Diverticulosis of large intestine without perforation or abscess without bleeding; K80.20 Calculus of gallbladder without cholecystitis without obstruction; J18.9 Pneumonia, unspecified organism
CPT/HCPCS: 74176

== ENCOUNTER → 2021-02-23 11:41 | Outpatient (BNVA) | payer OTHER, SELFPAY | PROVIDERS: PCP Internal Medicine; Referring Provider Internal Medicine Cardiovascular Disease; Visit Provider Internal Medicine Cardiovascular Disease | DX: Z01.818 Encounter for other preprocedural examination (principal); I51.9 Heart disease, unspecified; Z20.822 Contact with and (suspected) exposure to COVID-19 | CPT/HCPCS: 80048; 85025; 85610; 87635 ==

== ENCOUNTER → 2021-02-24 15:45 | Outpatient (BNVA) | payer OTHER, SELFPAY | PROVIDERS: PCP Internal Medicine; Visit Provider Urology | DX: R10.9 Unspecified abdominal pain (principal) | CPT/HCPCS: 81003 ==

== ENCOUNTER 2021-03-01 07:49 | Outpatient (CLI) | payer OTHER, SELFPAY ==
[2021-03-01] VITALS (15 sets, daily range): BP systolic 97–135; BP diastolic 66–85; PULSE 59–80; RESP 15–22; TEMP 36.8; O2SAT 93; BMI 37.3
[2021-03-01] MEDS: diphenhydrAMINE 50 mg Capsule PO (09:17)
--- NOTE | 2021-03-01 10:00 | XACV_ITS ---
Ht: 168 cm Wt: 105 kg BSA: 2.26 m2 Gender: Male : 1960 Any Known Allergies: No known allergies Exam Priority: Routine Procedure(s): Procedure Description: Diagnostic procedure Procedure Description: Left Heart Catheterization Procedure Description: Left ventriculography Procedure Description: Coronary Angiography [place] VALENZUELA; Diagnostic Findings * No disease noted in the Left Main, Left Anterior Descending, Right, or Circumflex coronary arteries. * Coronary angiography shows left dominance. Conclusions 1. No disease noted in the Left Main, Left Anterior Descending, Right, or Circumflex coronary arteries. 2. Normal left ventricular systolic function. Ejection fraction of 60%. Recommendations * Continue current medical management and risk factor modification. Diagnostic RX Recommendation: none LV EDP: 12 mmHg Ventriculography Ejection Fraction: 60.0 % Left Ventriculography Findings: * Normal left ventricle ejection fraction no wall motion abnormality estimated ejection fraction is 60%. Pressures Phase:Rest AO : 107 / 69 ( 85 ) @ 9:30:00 AM 101 / 69 ( 85 ) @ 9:32:00 AM 119 / 71 ( 93 ) @ 9:44:00 AM 122 / 72 ( 95 ) @ 9:44:00 AM LV : 130 / -8 / 13 @ 9:42:00 AM 127 / -8 / 12 @ 9:43:00 AM 127 / -8 / 12 @ 9:44:00 AM Valves Phase:DefaultPhase AV : 8.0 @ 10:50:11 AM 8.0 @ 10:50:11 AM AV Mean Gradient: 11.0 @ 10:50:11 AM Clinical Evaluation EBL: 5mL-10mL Procedural Details Procedure Consent Obtained. Pre-Procedure Time Out. Identified patient by full name and date of as verbalized by the patient/guarantor. Does the consent match the physician's order: Yes. Accurate & Complete Informed Consent: Yes. Inpatient/Outpatient History & Physical on Chart: Yes. If H&P is completed, is and addenduem needed: No; If yes, is the addendum complete: N/A. Visualize and Verify Site with Patient/Guarantor: N/A. Relevant Radiology Images available: Yes. Pre-op teaching completed and patient verbalized understanding. The risks, benefits, and alternatives of sedation and/or procedure were discussed by physician. The patient agrees to continue. Procedure started. [facility] Clinical Fraility Score: 3: Managing Well. Stretcher And Drier Indications: Worsening Angina. Chest Pain Symptom Assessment: Typical Angina Symptoms. Correct patient, site and procedure confirmed by cath team. Current diagnosis: Chest Pain. PERRLA. Strong, equal hand track layer head bilaterally. Lungs clear x 5 lobes. IV Site on Arrival: 18 gauge in the left anticubital. IV Fluids: 0.9% NaCl at KVO. 0 mL infused prior to medical laboratory technical officer. Oxygen started at 2liters/min via nasal canula. right groin was prepped with chloroprep then draped in the usual sterile fashion. right radial was prepped with chloroprep then draped in the usual sterile fashion. Physician notified. Baseline sample Acquired. HR: 133 BPM. Rosemarie Pro RN circulating. Physician arrived. Physician scrubbed in. Immediate Pre-Procedure Time Out. Correct Patient: Yes; Correct Procedure: Yes; Correct Site: Yes; Correct Patient Position: Yes; Correct Supplies: Yes; Dried Flammable Prep: Yes; Blood Products Available: N/A;. Lidocaine 1% infiltrated to the right radial. Arterial access obtained. A 6 [place] TIG catheter in over wire. Multiple views taken of left coronary artery. Catheter redirected to the RCA. Catheter removed over the glide wire. A 6 [place] Angled Pig catheter in over wire. glidewire out. standard J wire inserted. EDP Sample taken: LV 130/-9,13; HR: 66 BPM; SpO2: 97%. LV gram performed in MARINELLI @ 10 mL/second for a total of 30 mL. EDP Sample taken: LV 127/-9,12; HR: 68 BPM; SpO2: 97%. Pullback taken: LV 127/-9,12; AO 119/71(93); Mean: 11mmHg, Peak to Peak: 8mmHg, SEP: 17sec/min; HR: 69 BPM; SpO2: 97%. Catheter removed over the standard wire. A TR Band was successful obtaining hemostatsis at the Right Radial artery insertion site. Physician scrubbed out. Post Procedure: Pulses reassessed and unchanged. PERRLA. Strong, equal hand track layer head bilaterally. No VTE prophylaxis required. Medication's Wasted: Lidocaine 1% = 15 mL. Medication's Wasted: Nitro = 49.8 mg. Medication's Wasted: Heparin = 1000 units. Medication's Wasted: Other = Fentanyl 50 mg. Total IV fluids: 42 mL. Estimated blood loss: 5mL-10mL. Procedure completed. Patient transferred by wheelchair to 1st floor. Vital chart was stopped. Access Site Site: Right Radial artery Sheath Size: 6 Fr Hemostasis Method: TR Band Hemostasis Success: Successful Procedure Medications Start: 10:22 AM Stop: 10:22 AM Medication: Versed Amount: 1 mg Route: I.V. Start: 10:23 AM Stop: 10:23 AM Medication: Fentanyl Amount: 50 mcg Route: I.V. Start: 10:12 AM Stop: 10:12 AM Medication: Versed Amount: 1 mg Route: I.V. Start: 10:26 AM Stop: 10:26 AM Medication: Nitrogylcerin Amount: 200 mcg Route: I.A. Start: 10:29 AM Stop: 10:29 AM Medication: Heparin Amount: 5000 units Route: I.V. I, the attending physician, have reviewed and verified all procedure medications. Yes, all medications given per verbal order History/Risk Factors Hypertension: Yes Dyslipidemia: No Peripheral Arterial Disease (PAD): No Myocardial Infarction (GA): No Obesity: No Renal Disease: No Tobacco Use: Current/Recent(w/in 1 year) Prior Interventions PCI: No CABG: No Valve Surgery: No Report Signatures Finalized by Brent Carroll MD on 03/14/2021 06:42 PM
--- NOTE | 2021-03-01 10:15 | W.PM.OPSUD ---
Surgery/Procedure H&P Update DATE OF PROCEDURE: March 01, 2021 DATE H&P PERFORMED: 02/03/21 H&P UPDATE INFORMATION: I have reviewed H&P completed within last 30 days, I have examined patient prior to procedure and No changes to prior documentation PREOP DIAGNOSIS: New onset of heart failure new onset of heart failure, LV dysfunction PLANNED PROCEDURE: Operation Date: 03/01/21 10:00 Proposed Procedures p Cardiac Catheterization(Left) - Brent Carroll MD PATIENT REASSESSED PRIOR TO SEDATION, WITH NO CHANGE NOTED: Yes PHYSICAL EXAM: alert, oriented x 3 and clear to auscultation bilaterally AIRWAY EVAL/ANESTHESIA PLAN: ASA II and Risks, benefits & alternatives of sedation and/or procedure discussed ADDITIONAL INFORMATION: Patient has been explained all risk benefit and alternative for the procedure. Patient understand risk for stroke urgent emergent vascular or bypass surgery transfusion vascular injury infection hematoma contrast-induced nephropathy. He is a candidate for DAPT he would like to proceed with it.
== END 2021-03-01 14:42 | disposition home or self-care (01) ==
LOC: CCL 09:40 → CSU 13:38
PROVIDERS: PCP Internal Medicine; Visit Provider Internal Medicine Cardiovascular Disease
DX: I11.0 Hypertensive heart disease with heart failure (principal); I50.9 Heart failure, unspecified; I50.1 Left ventricular failure, unspecified; F17.210 Nicotine dependence, cigarettes, uncomplicated; E78.5 Hyperlipidemia, unspecified; E11.9 Type 2 diabetes mellitus without complications
CPT/HCPCS: 36415; 93452; C1769; C1887; C1894; G0378; J1644; J2250; J3010; J3490; J7030; Q0163; Q9967

== ENCOUNTER 2022-12-28 08:08 | Oncology outpatient (recurring) (ONCR) | payer OTHER, SELFPAY ==
[2022-12-27 11:08] LABS: Basophils % 0.5 %; Eosinophils # 0.1 10^3/uL (0.0-0.8); Eosinophils % 1.3 %; Lymphocytes # 2.3 10^3/uL (0.8-4.8); Lymphocytes % 30.8 %; Mean Corpuscular HGB Conc 34.1 g/dL (30-55); Mean Corpuscular Hemoglobin 30.3 pg (27-33); Mean Corpuscular Volume 88.7 fl (82-101); Mean Platelet Volume 10.3 fL (7.4-10.4); Monocytes # 0.6 10^3/uL (0.2-0.9); Monocytes % 7.8 %; Neutrophils # 4.48 10^3/uL (1.8-7.7); Neutrophils % 59.3 %; Nucleated Red Blood Cells % 0 %; Platelet Count 214 10^3/cmm (157-399); Red Blood Count 5.75 10^6/uL (3.85-5.65); Red Cell Distribution Width 12.4 % (12.1-15.1); White Blood Count 7.56 10^3/uL (3.29-11.43)
[2022-12-27 12:00] VITALS: BP 142/74; PULSE 84; RESP 18; TEMP 36.6; O2SAT 98
[2022-12-28 10:30] VITALS: BP 140/91; PULSE 68; RESP 18; TEMP 36.6; O2SAT 98
== END 2022-12-29 23:59 | disposition home or self-care (01) ==
PROVIDERS: PCP Internal Medicine; Visit Provider Internal Medicine Medical Oncology
DX: D75.1 Secondary polycythemia (principal)
CPT/HCPCS: 36415; 85025; 99195

== ENCOUNTER 2023-01-04 14:20 | Oncology outpatient (recurring) (ONCR) | payer OTHER, SELFPAY ==
[2023-01-04 16:15] VITALS: BP 132/69; PULSE 92; RESP 16; TEMP 36.7; O2SAT 100
== END 2023-01-28 23:59 | disposition home or self-care (01) ==
PROVIDERS: PCP Internal Medicine; Visit Provider Internal Medicine Medical Oncology
DX: Z53.9 Procedure and treatment not carried out, unspecified reason (principal)

== ENCOUNTER 2023-02-06 11:27 | Oncology outpatient (recurring) (ONCR) | payer OTHER, SELFPAY ==
[2023-02-06 11:42] VITALS: BP 130/93; PULSE 95; RESP 16; TEMP 36.7; O2SAT 96
[2023-02-06 12:03] LABS: Basophils % 0.4 %; Eosinophils # 0.2 10^3/uL (0.0-0.8); Eosinophils % 1.7 %; Hematocrit 53.2 % (37-53); Lymphocytes # 2.8 10^3/uL (0.8-4.8); Mean Corpuscular HGB Conc 32.9 g/dL (30-55); Mean Corpuscular Hemoglobin 30.8 pg (27-33); Mean Corpuscular Volume 93.5 fl (82-101); Monocytes # 0.6 10^3/uL (0.2-0.9); Neutrophils # 5.67 10^3/uL (1.8-7.7); Neutrophils % 61.6 %; Nucleated Red Blood Cells % 0 %; Platelet Count 205 10^3/cmm (157-399); Red Blood Count 5.69 10^6/uL (3.85-5.65); Red Cell Distribution Width 12.9 % (12.1-15.1); White Blood Count 9.21 10^3/uL (3.29-11.43)
[2023-02-06 12:26] LABS: Alanine Aminotransferase 21 U/L (0-41); Albumin Level 3.9 g/dL (3.5-5.2); Alkaline Phosphatase 69 U/L (40-130); Aspartate Amino Transferase 15 U/L (0-40); Blood Urea Nitrogen 17 mg/dL (8-23); Calcium 8.8 mg/dL (8.5-10.5); Carbon Dioxide 27 mmol/L (22-29); Chloride 102 mmol/L (98-107); Globulin 2.9 g/dL (1.3-4.6); Glomerular Filtration Rate 75.2 mL/min (90-130); Glucose 195 mg/dL (65-115); Osmolality Calculated 291 mOsm/kg (285-295); Sodium 137 mmol/L (136-145); Total Bilirubin 0.2 mg/dL (0.15-1.2); Total Protein 6.8 g/dL (6.6-8.7)
[2023-02-06 12:28] LABS: Anion Gap 12.8 (5-19); Potassium 4.8 mmol/L (3.5-5.1)
== END 2023-02-28 23:59 | disposition home or self-care (01) ==
PROVIDERS: Internal Medicine Medical Oncology; PCP Internal Medicine; Visit Provider Internal Medicine Medical Oncology
DX: D75.1 Secondary polycythemia (principal); E11.9 Type 2 diabetes mellitus without complications; Z79.899 Other long term (current) drug therapy
CPT/HCPCS: 36415; 80053; 85025

== ENCOUNTER 2023-05-11 11:35 | Oncology outpatient (recurring) (ONCR) | payer OTHER, SELFPAY ==
[2023-05-11 11:55] VITALS: BP 157/87; PULSE 88; RESP 16; TEMP 36.6; O2SAT 94
[2023-05-11 12:13] LABS: Basophils # 0.1 10^3/uL (0.0-0.1); Basophils % 0.7 %; Eosinophils # 0.2 10^3/uL (0.0-0.8); Eosinophils % 2.7 %; Hematocrit 53.7 % (37-53); Lymphocytes # 2.8 10^3/uL (0.8-4.8); Lymphocytes % 33.8 %; Mean Corpuscular HGB Conc 33.5 g/dL (30-55); Mean Corpuscular Hemoglobin 30.7 pg (27-33); Mean Corpuscular Volume 91.5 fl (82-101); Mean Platelet Volume 10.2 fL (7.4-10.4); Monocytes # 0.8 10^3/uL (0.2-0.9); Monocytes % 9.6 %; Neutrophils # 4.37 10^3/uL (1.8-7.7); Neutrophils % 52.8 %; Nucleated Red Blood Cells % 0 %; Platelet Count 197 10^3/cmm (157-399); Red Blood Count 5.87 10^6/uL (3.85-5.65); Red Cell Distribution Width 12.9 % (12.1-15.1); White Blood Count 8.26 10^3/uL (3.29-11.43)
[2023-05-11 12:43] LABS: Alanine Aminotransferase 19 U/L (0-41); Albumin Level 3.9 g/dL (3.5-5.2); Alkaline Phosphatase 70 U/L (40-130); Aspartate Amino Transferase 16 U/L (0-40); Blood Urea Nitrogen 18 mg/dL (8-23); Carbon Dioxide 26 mmol/L (22-29); Chloride 105 mmol/L (98-107); Creatinine Clr Calc Pharmacy 125.3584; Globulin 3.2 g/dL (1.3-4.6); Glomerular Filtration Rate 113.5 mL/min (90-130); Glucose 196 mg/dL (65-115); Osmolality Calculated 299 mOsm/kg (285-295); Sodium 141 mmol/L (136-145); Total Bilirubin 0.3 mg/dL (0.15-1.2); Total Protein 7.1 g/dL (6.6-8.7)
[2023-05-11 12:54] LABS: Anion Gap 14.1 (5-19); Lactate Dehydrogenase 225 U/L (135-225); Potassium 4.1 mmol/L (3.5-5.1)
[2023-05-15 13:34] LABS: Erythropoietin 8.1 mIU/mL (2.6-18.5)
[2023-05-18 23:14] LABS: CALR Exon 9 Mutation NOT DETECTED (NOT DETECTED); CSF3R Exon 14/17 Mutation NOT DETECTED (NOT DETECTED); JAK2 Exon 12 Mutation NOT DETECTED (NOT DETECTED); JAK2 V617 Block Specimen ID NG; JAK2 V617 Clinical Indication NG; JAK2 V617 Mutation NOT DETECTED (NOT DETECTED); JAK2 V617 Specimen Source NG; MPL Exon 12 Mutation NOT DETECTED (NOT DETECTED)
== END 2023-05-31 23:59 | disposition home or self-care (01) ==
PROVIDERS: PCP Internal Medicine; Visit Provider Internal Medicine Medical Oncology
DX: D75.1 Secondary polycythemia (principal); E11.9 Type 2 diabetes mellitus without complications; Z79.899 Other long term (current) drug therapy
CPT/HCPCS: 36415; 80053; 81270; 81279; 81339; 81479; 82668; 83615; 85025; 99214

== ENCOUNTER 2023-10-02 11:48 | Emergency (ER) | payer MEDICARE, SELFPAY ==
[2023-10-02 12:55] VITALS: RESP 18
[2023-10-02 12:58] VITALS: BP 112/83; PULSE 110; RESP 18; O2SAT 92
--- NOTE | 2023-10-02 13:54 | ED_ITS ---
HPI - Back Pain/Injury 2 General: Chief Complaint: Back Pain/Injury Stated Complaint: possible kidney stone low back pain Time Seen by Provider: 10/02/23 13:46 Source: patient Mode of arrival: ambulatory Limitations: no limitations History of Present Illness: Patient is a nice 63-year-old male with an extensive history of nephroureterolithiasis here for complaints of left flank pain that he states is identical to previous calculi pains. He states he is having difficulty urinating. He has not been running fevers. He does feel nauseous. Patient states he used to see Dr. Del Cid but has not seen anybody since he retired. He has had multiple surgeries for his stones-some of which performed in [place]. MD elicited complaint: back pain Pertinent past history: kidney stones Onset (ago): day(s) Timing: constant Severity: severe Similar Symptoms Previously: Yes Quality: sharp and stabbing Location: left flank Radiation: groin Exacerbating factors: none Relieving factors: none Associated symptoms: Reports nausea and urinary urgency; Deny abdominal pain, chills, change in bowel habits, fatigue, fever(s), hematuria or vomiting Work related injury: No Review of Systems 2 Const: Denies: fever(s), chills, body aches, fatigue or malaise Card: Denies: chest pain Resp: Denies: dyspnea GI: Reports: nausea; Denies: abdominal pain, vomiting, diarrhea or change in bowel habits : Reports: flank pain, difficulty urinating, urinary urgency and urinary hesitancy; Denies: hematuria Musc: Reports: back pain; Denies: neck pain, extremity pain, extremity swelling, joint pain or joint swelling Skin/Breast: Denies: rash Neuro: Denies: headache(s), numbness in extremities, weakness in extremities, sensory changes or dizziness PFSH ED 2 PFSH: Medical History Essential hypertension Obesity Smoker KASSIDY and COPD overlap syndrome COPD (chronic obstructive pulmonary disease) Acute on chronic respiratory failure with hypoxia and hypercapnia Pneumonitis Acute exacerbation of chronic obstructive airways disease Type 2 diabetes mellitus Nephrolithiasis Surgical History History of left heart catheterization (03/01/21) Hx of lithotripsy Family History Father , AT AGE 80 COPD CAD (coronary artery disease) Social History Smoking and tobacco/nicotine status: former use of tobacco/nicotine Quit status (tobacco/nicotine): has quit using Year quit tobacco: 2020 Former quit date comment: smoked 30 years Alcohol intake: never Substance/Drug Use: never Marital status: Current occupational status: employed 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 Do you think of yourself as: Straight/Heterosexual Physical Exam 2 Const: COMMON NORMALS: patient oriented x3, no limitations, alert and well nourished GENERAL APPEARANCE: cooperative and in distress (appears uncomfortable secondary to pain) NUTRITIONAL APPEARANCE: obese O RIENTATION/CONSCIOUSNESS: Yes awake, Yes oriented to person, Yes oriented to place and Yes oriented to time Resp: COMMON NORMALS: normal respiratory effort and clear to auscultation bilaterally AUSCULTATION: clear to auscultation bilaterally Cardio: COMMON NORMALS: regular rhythm RATE: tachycardic (slightly tachycardic at times) RHYTHM: regular rhythm GI: COMMON NORMALS: Normal to inspection, nondistended, normoactive bowel sounds present, Soft to palpation, non-tender, No hepatosplenomegaly present and no masses PALPATION: Yes Soft to palpation and Yes No hepatosplenomegaly present : BLADDER/KIDNEY EXAM: Yes CVA tenderness on the left Back/Pelvis: COMMON NORMALS: thoracic and lumbar spine normal to inspection GENERAL BACK: Yes CVA tenderness Extremity: GENERAL: Yes normal exam except as noted Neuro: COMMON NORMALS: patient oriented x3, moves all extremities, no focal motor deficits and no sensory deficits noted SENSORIUM/ORIENTATION: Yes alert, Yes oriented to person, Yes oriented to place and Yes oriented to time Skin: COMMON NORMALS: no rashes or lesions noted GENERAL SKIN EXAM: no rashes or lesions noted Course 2 Vital Signs: Vital signs: Vital Signs Pulse Rate 110 H 10/02/23 12:58 Respiratory Rate 17 10/02/23 14:30 Blood Pressure 112/83 10/02/23 12:58 Pulse Oximetry 92 10/02/23 14:30 Oxygen Delivery Me thod Room Air 10/02/23 12:55 MDM - Back Pain/Injury Medical Decision Making Patient is a 63-year-old male here for left flank pain. He has an extensive history of nephroureterolithiasis. He was found to have a large 10 x 9 mm left central renal calcification. There is adjacent inflammation. Nothing that appears infectious at this time on imaging. His pain is controlled here. Patient's white count is 12.5. UA is not overly suspicious for infection however he does have trace leuks and 10-15 WBCs. Will go ahead and place on Keflex. I spoke to nurse practitioner at [facility] in [place], [place] and they will see patient to this Monday at 11:10 am. Will call in prescriptions for nausea meds, flomax, antibiotics. Dr. Martines will escript a prescription for oxycodone. Strict return to ED precautions given. Medical Records I reviewed the patient's medical records. Labs I reviewed the patient's lab results. 10/02/23 14:25 10/02/23 14:25 Radiology Impressions Abdomen/Pelvis CT 10/02/23 14:06 IMPRESSION: 1. LEFT central renal calcification measuring 10 x 9 mm causing a mild hydronephrosis of the kidney. There is adjacent inflammation in the renal pelvis with uroepithelial thickening suggesting acute inflammatory process. 2. Additional LEFT renal calcifications which are nonobstructing. Stone burden in the LEFT kidney has increased since 02/22/2021. 3. Nonobstructing RIGHT renal calcifications. 4. Cholelithiasis without evidence for acute cholecystitis. 5. Normal appendix. Laboratory Results WBC 12.51 10^3/uL (3.29-11.43) H 10/02/23 14:25 RBC 6.06 10^6/uL (3.85-5.65) H 10/02/23 14:25 Hgb 18.80 g/dL (11.27-16.99) H 10/02/23 14:25 Hct 55.9 % (37-53) H 10/02/23 14:25 MCV 92.2 fl (82-101) 10/02/23 14:25 MCH 31.0 pg (27-33) 10/02/23 14: MCHC 33.6 g/dL (30-55) 10/02/23 14: RDW 12.7 % (12.1-15.1) 10/02/23 14:25 Plt Count 212 10^3/cmm (157-399) 10/02/23 14:25 MPV 10.6 fL (7.4-10.4) H 10/02/23 14:25 Neut % (Auto) 70.5 % 10/02/23 14:25 Lymph % (Auto) 20.5 % 10/02/23 14:25 [place] % (Auto) 6.5 % 10/02/23 14:25 Eos % (Auto) 1.9 % 10/02/23 14:25 Baso % (Auto) 0.3 % 10/02/23 14:25 Neut # (Auto) 8.81 10^3/uL (1.8-7.7) H 10/02/23 14:25 Lymph # (Auto) 2.6 10^3/uL (0.8-4.8) 10/02/23 14:25 [place] # (Auto) 0.8 10^3/uL (0.2-0.9) 10/02/23 14:25 Eos # (Auto) 0.2 10^3/uL (0.0-0.8) 10/02/23 14:25 Baso # (Auto) 0.0 10^3/uL (0.0-0.1) 10/02/23 14:25 Nucleated RBC % (auto) 0 % 10/02/23 14:25 Nucleated RBCs # 0.0 /100WBC 10/02/23 14:25 Sodium 140 mmol/L (136-145) 10/02/23 14:25 Potassium 4.2 mmol/L (3.5-5.1) 10/02/23 14:25 Chloride 104 mmol/L (98-107) 10/02/23 14:25 Carbon Dioxide 25 mmol/L (22-29) 10/02/23 14:25 Anion Gap 15.2 (5-19) 10/02/23 14:25 BUN 15 mg/dL (8-23) 10/02/23 14:25 Creatinine 0.9 mg/dL (0.7-1.2) 10/02/23 14:25 GFR Calculation 84.7 mL/min (90-130) L 10/02/23 14:25 Glucose 145 mg/dL (65-115) H 10/02/23 14:25 Calculated Osmolality 293 mOsm/kg (285-295) 10/02/23 14:25 Calcium 9.2 mg/dL (8.5-10.5) 10/02/23 14:25 Total Bilirubin 0.4 mg/dL (0.15-1.2) 10/02/23 14:25 AST 12 U/L (0-40) 10/02/23 14:25 ALT 19 U/L (0-41) 10/02/23 14:25 Alkaline Phosphatase 67 U/L (40-130) 10/02/23 14:25 Total Protein 7.1 g/dL (6.6-8.7) 10/02/23 14:25 Albumin 3.9 g/dL (3.5-5.2) 10/02/23 14:25 Globulin 3.2 g/dL (1.3-4.6) 10/02/23 14:25 Urine Color Yellow (Yellow) 10/02/23 15:53 Urine Appearance Clear (CLEAR) 10/02/23 15:53 Urine pH 5 (5-7) 10/02/23 15:53 Ur Specific Erin 1.020 (1.005-1.030) 10/02/23 15:53 Urine Protein Trace (Negative) 10/02/23 15:53 Urine Glucose (UA) Norm (Normal) 10/02/23 15:53 Urine Ketones 1+ (Negative) H 10/02/23 15:53 Urine Blood 3+ (Negative) H 10/02/23 15:53 Urine Nitrate Negative (Negative) 10/02/23 15:53 Urine Bilirubin Neg (Negative) 10/02/23 15:53 Urine Urobilinogen Neg mg/dL (Negative) 10/02/23 15:53 Ur Leukocyte Esterase Trace (Negative) H 10/02/23 15:53 Urine RBC 10-15 /hpf (0-2) H 10/02/23 15:53 Urine WBC 10-15 /hpf (0-5) H 10/02/23 15:53 Ur Squamous Epith Cells 0-4 /hpf (0-5) H 10/02/23 15:53 Calcium Oxalate Crystal 5-10 /hpf H 10/02/23 15:53 Amorphous Sediment Not Reportable 10/02/23 15:53 Urine Bacteria Trace /hpf (NONE) 10/02/23 15:53 Urine Mucus 1+ /hpf 10/02/23 15:53 All radiology interpretation(s) finalized by discharge Discharge Plan Discharge Patient Disposition: Home Clinical Impression: Calculus of left kidney Condition: Stable Prescriptions: New Flomax 0.4 mg capsule 0.4 mg PO DAILY Qty: 10 0RF cephalexin 500 mg capsule 500 mg PO Q6H 7 Days Qty: 28 0RF ondansetron 4 mg tablet,disintegrating 4 mg PO Q8H PRN (Reason: nausea and vomiting) Qty: 14 0RF oxycodone 5 mg tablet 5 mg PO Q8H PRN (Reason: pain) Qty: 14 0RF No Action semaglutide 0.25 mg or 0.5 mg(2 mg/1.5 mL) pen injector SUBCUT .weekly ibuprofen 200 mg Tablet 600 mg PO Q4H PRN (Reason: Pain) Lantus U-100 Insulin 100 unit/mL solution 20 unit SUBCUT DAILY Discharge Orders: Discharge ED (Routine); Ordered 10/02/23 Ordered By: Concha Tejeda Referrals: Graciela Foley MD [Primary Care Provider] - Patient Instructions: Kidney Stones, Opioid Safety, Pain Management Activity Restrictions/Additional Instructions: You have an appointment with [facility] in [place], [place] this MondayOctober 03 at 11:10. Arrive 20-30 mins early for new patient paperwork. Their office phone number is [phone]. Coding Level of Care Code ED [employer] for Srikanth Otero
--- NOTE | 2023-10-02 14:06 | CT_ITS ---
WS: [id number] CT ABDOMEN AND PELVIS NONCONTRAST HISTORY: L flank pain TECHNIQUE: Imaging performed through the abdomen and pelvis. Coronal and sagittal reformats are submi tted. All CT scans at [facility] use at least one of these dose optimization techniques: auto mated exposure control; mA and/or kV adjustment per patient size (includes targeted exams where dose is matched to clinical indication); or iterative reconstruction. DLP: 935.23 mGy.cm COMPARISON: 02/22/2021 Lower thorax: Lung bases are clear. Visualized heart is normal. Small hiatal hernia. Liver: Normal size liver. No mass or bile duct dilatation. Gallbladder: Distended gallbladder. There is a large stone in the central gallbladder measuring 2.5 c m. No findings of acute cholecystitis. Common bile duct is normal caliber. Pancreas: Normal size and attenuation. Normal pancreatic duct. No pancreatitis or mass. Spleen: Normal. Adrenal glands: Normal. No mass. Right kidney: Normal size kidney. Nonobstructing calcifications in the renal pelvis. Largest calcific ation is 8 mm. There is slight stranding in the central renal pelvis but similar to the prior study. Left kidney: Mild central dilatation. The dilatation extends into the calyces. There is a central shon al calcification measuring 10 x 9 mm. This calcifications in the central pelvis with adjacent uroepit helial thickening centrally and stranding. Proximal ureter is not dilated. There are additional calci fications in the mid to lower LEFT kidney. The stone burden is increasing since 02/22/2021. Aorta: Mild atherosclerosis abdominal aorta with no aneurysm. No free fluid, intraperitoneal air or significant lymphadenopathy. GI tract: Normal noncontrast imaging of the stomach, small bowel and colon. No obstruction or wall th ickening. Normal appendix. Abdominal wall: Thinning of the ventral abdominal wall. Tiny umbilical hernia containing omentum only . Pelvis: Unremarkable urinary bladder. No free fluid or adenopathy. Osseous structures: Unremarkable. CT/CT kidney stone [id number] IMPRESSION: 1. LEFT central renal calcification measuring 10 x 9 mm causing a mild hydrone phrosis of the kidney. There is adjacent inflammation in the renal pelvis with uroepithelial thickening suggesting acute inflammatory process. 2. Additional LEFT renal calcifications which are nonobstructing. Stone burden in the LEFT kidney has increased since 02/22/2021. 3. Nonobstructing RIGHT renal calcifications. 4. Cholelithiasis without evidence for acute cholecystitis. 5. Normal appendix.
[2023-10-02] MEDS: sodium chloride 0.9% 1,000 ML 999 ML IV (14:29)
[2023-10-02 14:30] VITALS: RESP 17; O2SAT 92
[2023-10-02] MEDS: morphine 4 mg/mL SDV 1 mL IVP ×2 (14:30→17:17)
[2023-10-02] MEDS: ondansetron 2 mg/ML SDV 2 mL 4 MG IVP (14:30)
[2023-10-02] MEDS: ketorolac 60 mg/2 mL INJ 30 MG IVP (14:30)
[2023-10-02 14:48] LABS: Basophils % 0.3 %; Eosinophils # 0.2 10^3/uL (0.0-0.8); Eosinophils % 1.9 %; Hematocrit 55.9 % (37-53); Lymphocytes # 2.6 10^3/uL (0.8-4.8); Lymphocytes % 20.5 %; Mean Corpuscular HGB Conc 33.6 g/dL (30-55); Mean Corpuscular Volume 92.2 fl (82-101); Mean Platelet Volume 10.6 fL (7.4-10.4); Monocytes # 0.8 10^3/uL (0.2-0.9); Monocytes % 6.5 %; Neutrophils # 8.81 10^3/uL (1.8-7.7); Neutrophils % 70.5 %; Nucleated Red Blood Cells % 0 %; Platelet Count 212 10^3/cmm (157-399); Red Blood Count 6.06 10^6/uL (3.85-5.65); Red Cell Distribution Width 12.7 % (12.1-15.1); White Blood Count 12.51 10^3/uL (3.29-11.43)
[2023-10-02 15:02] LABS: Alanine Aminotransferase 19 U/L (0-41); Albumin Level 3.9 g/dL (3.5-5.2); Alkaline Phosphatase 67 U/L (40-130); Anion Gap 15.2 (5-19); Aspartate Amino Transferase 12 U/L (0-40); Blood Urea Nitrogen 15 mg/dL (8-23); Calcium 9.2 mg/dL (8.5-10.5); Carbon Dioxide 25 mmol/L (22-29); Chloride 104 mmol/L (98-107); Creatinine Clr Calc Pharmacy 95.8819; Globulin 3.2 g/dL (1.3-4.6); Glomerular Filtration Rate 84.7 mL/min (90-130); Glucose 145 mg/dL (65-115); Osmolality Calculated 293 mOsm/kg (285-295); Potassium 4.2 mmol/L (3.5-5.1); Sodium 140 mmol/L (136-145); Total Bilirubin 0.4 mg/dL (0.15-1.2); Total Protein 7.1 g/dL (6.6-8.7)
[2023-10-02 16:16] LABS: Glucose Urine UA Norm (Normal); Ketones Urine 1+ (Negative); Protein Urine Trace (Negative); Urine Appearance Clear (CLEAR); Urine Color Yellow (Yellow); pH Urine 5 (5-7)
[2023-10-02 16:17] LABS: Add Urine Microscopic? YES; Bilirubin Urine Neg (Negative); Blood Urine 3+ (Negative); Leukocyte Esterase Urine Trace (Negative); Nitrate Urine Negative (Negative); Urobilinogen Urine Neg (Negative)
[2023-10-02 16:18] LABS: Bacteria Urine TRACE /hpf; Mucus Urine 1+ /hpf; Squamous Epithelial Cell Urine 0-4 /hpf (0-5)
[2023-10-02 16:19] LABS: Add Urine Culture? Yes
== END 2023-10-02 17:23 | disposition home or self-care (01) ==
PROVIDERS: Emergency Medicine; Emergency Provider Physician Assistant; PCP Internal Medicine
DX: N13.2 Hydronephrosis with renal and ureteral calculous obstruction (principal); Z79.85 Long-term (current) use of injectable non-insulin antidiabetic drugs; Z79.4 Long term (current) use of insulin; I10 Essential (primary) hypertension; J44.9 Chronic obstructive pulmonary disease, unspecified; E11.9 Type 2 diabetes mellitus without complications; Z87.891 Personal history of nicotine dependence; Z87.442 Personal history of urinary calculi
CPT/HCPCS: 74176; 80053; 81001; 85025; 87086; 96374; 96375; 96376; 99285; J1885; J2270; J2405; J7030

== ENCOUNTER → 2025-04-22 16:19 | Outpatient (BNVA) | payer MEDICARE, SELFPAY | PROVIDERS: PCP Internal Medicine | DX: R09.81 Nasal congestion (principal); R06.02 Shortness of breath | CPT/HCPCS: 71046; 87400; 87426 ==